=== PATIENT | male | born 1970 | race Caucasian/White ===

== ENCOUNTER 2018-03-15 17:32 | Observation (INO) | payer BC, SELFPAY ==
[2018-03-15] VITALS (11 sets, daily range): BP systolic 118–175; BP diastolic 85–118; PULSE 82–105; RESP 14–22; TEMP 36.7–37.2; O2SAT 93–98; BMI 31.4; BMI 30.9; BMI 31.0
--- NOTE | 2018-03-15 17:49 | RAD_ITS ---
STUDY: X-RAY CHEST REASON FOR EXAM: Male, 48 years old. Shortness of breath this morning TECHNIQUE: Single AP portable view of the chest. COMPARISON: 10/09/2016 FINDINGS: The lungs are clear and expanded. There is no demonstrated pleural abnormality. Normal size heart. Normal mediastinum and tonio. Normal visualized pulmonary arteries. Normal visualized aortic arch and descending thoracic aorta. Normal visualized thoracic spine. Normal visualized ribs, clavicles, and shoulders. There is no demonstrated abnormality of the visualized soft tissue structures of the upper abdomen. RAD/Chest 1 View (Portable) IMPRESSION: Normal x-ray examination of the chest. Electronically Signed: Alvin Rudolph DO at 18:13 EDT Tel , Service support ,
--- NOTE | 2018-03-15 17:49 | EKG12_ITS ---
Test Reason : CP Blood Pressure : / mmHG Vent. Rate : 097 BPM Atrial Rate : 097 BPM P-R Int : 116 ms QRS Dur : 090 ms QT Int : 360 ms P-R-T Axes : 062 026 044 degrees QTc Int : 457 ms Normal sinus rhythm Nonspecific ST abnormality Abnormal ECG Confirmed by JEREMIAS ERAZO ([id number]), material expeditor ELLIE ROWLEY ([id number]) on 03/18/2018 2:39:58 PM Referred By: FELIPE/CORINA Confirmed By:JEREMIAS ERAZO
[2018-03-15] MEDS: Aspirin 81 MG TAB.CHEW 324 MG PO (17:57)
--- NOTE | 2018-03-15 18:05 | NURSING ---
NO OLD EKGS
[2018-03-15 18:51] LABS: Anion Gap 9 (5-15); BUN 12 mg/dL (7-18); BUN/Creat Ratio 9.2 RATIO (10-20); Calcium,Total 8.1 mg/dL (8.5-10.1); Chloride 104 mmol/L (98-107); Creatinine, Serum 1.31 mg/dL (0.70-1.30); EST Glomerular Filtration Rate 62 mL/min (>60); Est Glom Filt Rate - Afr Amer 75 mL/min (>60); Estimated Creatinine Clearance 73.45 ml/min; Glucose 215 mg/dL (74-106); Potassium 3.9 mmol/L (3.5-5.1); Sodium Level 139 mmol/L (136-145)
--- NOTE | 2018-03-15 19:03 | CT_ITS ---
STUDY: CTA CHEST REASON FOR EXAM: Male, 48 years old. Chest pain and shortness of breath. RADIATION DOSAGE (If Supplied By Facility): CTDIvol = ( 14.39 ) mGy, DLP = ( 702.57 ) mGycm TECHNIQUE: The examination was performed with the intravenous administration of 100ML ml of Isovue 370 contrast material. Post-processing of the angiographic images was performed, with multiplanar reformation and 3D reconstruction. Individualized dose optimization techniques were used for this CT. COMPARISON: None. FINDINGS: Normal enhancement of the main pulmonary artery and right and left pulmonary arteries. Normal enhancement of the bilateral peripheral pulmonary arteries. There is no demonstrated pulmonary embolism. Normal thoracic aorta and visualized great vessels. There is no demonstrated aortic dissection. Normal heart and pericardium. Normal mediastinum. Normal hilar regions. Normal visualized trachea and bronchi. The lungs are well expanded. Normal pulmonary parenchyma. Normal pleura. Normal chest wall structures. Normal osseous structures. Normal visualized upper abdomen. CT/CTA Chest W/WO Contrast IMPRESSION: No evidence of pulmonary embolism or aortic dissection. No evidence of acute cardiothoracic process or focal consolidation. Electronically Signed: George Alonso DO at 20:27 EDT , Service support ,
[2018-03-15 19:13] LABS: Absolute Lymphocyte Count 1.89 X10^3/ul (0.83-4.51); Absolute Neutrophil Count 5.3 X10^3/uL (2.0-7.7); Basophil# 0.02 X10^3/uL; Basophil% 0.2 % (0-1); Eosinophil# 0.14 X10^3/uL; Eosinophils% 1.7 % (0-5); Lymphocyte # 1.89 X10^3/ul (4.0); Lymphocyte % 22.7 % (19-41); Mean Corpuscular Volume 90.1 fL (80-94); Mean Platelet Vol. 11.3 fl (6.2-12.0); Monocyte% 10.8 % (0-10); Neutrophil # 5.34 X10^3/uL (2.7-7.7); Neutrophil % 64.2 % (47-70); Platelet Count 191 K/mm3 (150-450); RBC Distribution Width CV 12.6 % (11.6-14.6); RBC Distribution Width SD 40.9 fl (35.1-43.9); Red Blood Count 4.77 M/mm3 (4.6-6.2); White Blood Count 8.3 K/mm3 (4.4-11.0)
[2018-03-15 19:16] LABS: Mean Corpuscular Hgb 32.7 pg (27.0-32.0)
[2018-03-15 19:17] LABS: Hemoglobin 15.6 g/dl (13.0-16.5); Mean Corp Hgb Conc 36.3 g/gl (32-36); POSITIVE COUNT NO; POSITIVE DIFFERENTIAL NO; POSITIVE MORPHOLOGY NO
--- NOTE | 2018-03-15 21:17 | ED.DCSUM_ITS ---
- ER Visit Summary Date of Service: 03/15/18 Chief Complaint: Chest pain History of Present Illness: The patient is a 48 M who presents with chest pain. It began about 6 hours prior to presentation. He states it is dull and on the left side of the chest and radiates to the shoulder and neck and he also had some tingling in his left hand. He felt short of breath. He denies nausea vomiting or diaphoresis. He denies history of exertional symptoms. No family history of coronary disease. Physical Examination: Afebrile initial heart rate 105 initial blood pressure 175 /118 Moist mucous membranes Heart regular rhythm tachycardia Lungs are clear Abdomen soft Extremities nontender without edema 2+ radial pulses Test Results: EKG shows normal sinus rhythm at a rate of 97. Laboratory studies notable for creatinine 1.31. Troponin negative. Chest x-ray normal. CTA of the chest shows no evidence of PE or dissection. Emergency Department Course and Treatment: Patient was given aspirin and sublingual nitroglycerin without change in symptoms. However after period of observation he does report significant improvement of his chest pain. His blood pressure is improved on reevaluation. Given his description of symptoms with radiation to the neck and shoulder and shortness of breath I did feel he should have repeat EKG and serial enzymes. He was discussed with hospitalist and admitted. Treatment Plan: [] Disposition: Admit Impression: Chest pain This note was generated with [employer] dictation software. It may contain incorrect words, spelling, and punctuation that were not noted in review of the chart prior to signing ED Disposition - Plan for ED Patient: Chief Complaint: Chest Pain Referrals: Malcom White MD [Primary Care Provider] -
--- NOTE | 2018-03-15 21:21 | PCM.HP.STD ---
Problem List (1) Chest pain Status: Acute Qualifiers: Chest pain type: unspecified Qualified Code(s): R07.9 - Chest pain, unspecified History of Present Illness Date of Admission: 03/15/18 Chief Complaint: chest pain The patient is a 48 year old male patient with no significant past medical history presents to the ER with chest pain. He works thirds shift at [employer] and states he woke up after sleeping following his shift, he had chest pain that radiated to his left jaw and had tingling in his left arm. There are no acute EKG changes and the troponin is negative. He denies having previously had chest pain. He does use smokeless tobacco. He is able to push on his middle of left chest and make the pain feel worse. CTA chest was negative for PE. He will be admitted for observation and rule out cardiac etiology. Past Medical History Allergies bee venom protein (honey bee) Allergy (Verified 03/15/18 17:33) Rash Home Medications: Ambulatory Orders Medication Instructions Recorded NK [NK] 03/15/18 Surgical History: no surgical history Smoking Status: Current every day smoker - smokeless tobacco - *Family History Maternal History Items: No pertinent history Review of Systems Constitutional: Denies: Chills, Fever, Weight Change HEENT: Denies: Head Aches, Sinus Congestion, Sinus Drainage Cardiovascular: Reports: Chest Pain. Denies: Palpitations Respiratory: Denies: Cough, Shortness of breath at rest, Sputum production Gastrointestinal: Denies: Abdominal Pain, Nausea, Vomiting Genitourinary: Denies: Dysuria Musculoskeletal: Denies: Joint Pain, Joint Tenderness Skin: Denies: Rash, Wounds Neurological: Denies: Numbness, Tingling, Focal weakness Psychiatric: Denies: Anxiety, Depression, Homicidal Ideations, Suicidal Ideations Hematologic/ Lymphatic: Denies: Easy Bruising, Easy Bleeding VTE Information - Inpt Only VTE Present on Admission: No VTE Mechan Device Prophylaxis: None VTE Pharm Prophylaxis ordered?: Yes Patient Problems: Active and Suspected Problems Chest pain (Acute) - Physical Exam General: Alert, Oriented x3, Cooperative HEENT: Atraumatic, Normocephalic Neck: Supple Lungs: Clear to auscultation, Normal air movement, No rhonchi, No wheeze, No rales Cardiovascular: Regular rate, Regular Rhythm, Normal S1, Normal S2, No murmurs Abdomen: Bowel Sounds Present, Soft, Non Tender Extremities: No edema, Capillary Refill Less than 3 Seconds Skin: No rashes Musculoskeletal: No Tenderness to Palpation of Joints or Extremities Neurological: Neuro grossly intact Psych/Mental Status: Normal Affect, Appropriate Vital Signs Temp Pulse Resp BP Pulse Ox 99 F 82 17 128/89 H 98 03/15/18 17:34 03/15/18 20:02 03/15/18 20:02 03/15/18 20:02 03/15/18 20:02 Oxygen Flow Rate (L/min) 2 Oxygen Delivery Method Nasal Cannula Weight: 225 lb 1.471 oz Body Mass Index (BMI) 31.4 Laboratory Tests Past 24 Hrs 03/15/18 03/15/18 18:00 18:00 WBC 8.3 RBC 4.77 Hgb 15.6 Hct 43.0 MCV 90.1 MCH 32.7 H MCHC 36.3 H RDW 12.6 RDW Differential 40.9 Plt Count 191 MPV 11.3 Immature Gran % (Auto) 0.400 Neut % (Auto) 64.2 Lymph % (Auto) 22.7 [place] % (Auto) 10.8 H Eos % (Auto) 1.7 Baso % (Auto) 0.2 Absolute Neuts (auto) 5.3 Absolute Lymphs (auto) 1.89 Total Counted Not Reportable Sodium 139 Potassium 3.9 Chloride 104 Carbon Dioxide 26.0 Anion Gap 9 BUN 12 Creatinine 1.31 H Estim Creat Clear Calc 73.45 Est GFR (MDRD) Af Amer 75 Est GFR (MDRD) Non-Af 62 BUN/Creatinine Ratio 9.2 L Glucose 215 H Calcium 8.1 L Troponin I < 0.02 Assessment/Plan Active and Suspected Problems Chest pain (Acute) Plan - admit to progressive care unit for observation - morphine , oxygen, nitro and aspirin per routine - cycle cardiac markers - nuclear exercise stress test in am - LMWH for DVT prophylaxis Code Visit OBSV E&M: 20563 Initial observation care L2
[2018-03-16 02:27] LABS: International Normalized Ratio 1.1; Prothrombin Time (Protime)PT. 13.8 SECONDS (11.7-14.9)
[2018-03-16 02:30] LABS: Absolute Lymphocyte Count 2.44 X10^3/ul (0.83-4.51); Absolute Neutrophil Count 3.4 X10^3/uL (2.0-7.7); Basophil# 0.01 X10^3/uL; Basophil% 0.1 % (0-1); Eosinophil# 0.22 X10^3/uL; Eosinophils% 3.3 % (0-5); Hematocrit 42.3 % (40-54); Hemoglobin 15.4 g/dl (13.0-16.5); Lymphocyte # 2.44 X10^3/ul (4.0); Lymphocyte % 36.6 % (19-41); Mean Corp Hgb Conc 36.4 g/gl (32-36); Mean Corpuscular Hgb 32.9 pg (27.0-32.0); Mean Corpuscular Volume 90.4 fL (80-94); Mean Platelet Vol. 10.7 fl (6.2-12.0); Neutrophil # 3.39 X10^3/uL (2.7-7.7); Neutrophil % 50.9 % (47-70); POSITIVE COUNT NO; POSITIVE DIFFERENTIAL NO; POSITIVE MORPHOLOGY NO; Platelet Count 167 K/mm3 (150-450); RBC Distribution Width CV 12.8 % (11.6-14.6); RBC Distribution Width SD 41.7 fl (35.1-43.9); Red Blood Count 4.68 M/mm3 (4.6-6.2); White Blood Count 6.7 K/mm3 (4.4-11.0)
[2018-03-16 02:46] LABS: Albumin, Serum 3.4 g/dL (3.2-5.0); BUN 10 mg/dL (7-18); BUN/Creat Ratio 9.7 RATIO (10-20); Creatinine, Serum 1.03 mg/dL (0.70-1.30); EST Glomerular Filtration Rate 82 mL/min (>60); Est Glom Filt Rate - Afr Amer 99 mL/min (>60); Estimated Creatinine Clearance 93.41 ml/min; Glucose 179 mg/dL (74-106)
[2018-03-16 02:47] LABS: ALB/GLOB Ratio 0.9 RATIO (0.9-2.4); AST(SGOT) 25 U/L (15-37); Alanine Aminotransfer ALT/SGPT 39 U/L (16-61); Alkaline Phosphatase 91 U/L (45-117); Anion Gap 7 (5-15); Chloride 107 mmol/L (98-107); Cholesterol 115 mg/dL (200); Globulin 3.6 g/dL (2.2-4.2); High Density Lipoprotein 23 mg/dL; Magnesium 2.3 mg/dL (1.6-2.6); Potassium 3.5 mmol/L (3.5-5.1); Sodium Level 141 mmol/L (136-145); Thyroid Stim Hormone (TSH) 1.27 uIU/mL (0.358-3.74); Triglycerides 369 mg/dL; Very Low Density Lipoprotein 74 mg/dL (5-40)
[2018-03-16 02:59] VITALS: PULSE 72
[2018-03-16 04:37] VITALS: BP 128/85; PULSE 71; RESP 18; TEMP 36.4; O2SAT 95
[2018-03-16] MEDS: Aspirin E.C. 325 MG Tablet PO (05:07)
--- NOTE | 2018-03-16 05:55 | EKG12_ITS ---
Test Reason : AM EKG Blood Pressure : / mmHG Vent. Rate : 068 BPM Atrial Rate : 068 BPM P-R Int : 114 ms QRS Dur : 088 ms QT Int : 414 ms P-R-T Axes : 010 031 043 degrees QTc Int : 440 ms Normal sinus rhythm Normal ECG When compared with ECG of 15-MAR-2018 17:33, MANUAL COMPARISON REQUIRED, DATA IS UNCONFIRMED Confirmed by JEREMIAS ERAZO ([id number]), editor newspaper ELLIE ROWLEY ([id number]) on 03/18/2018 3:15:14 PM Referred By: DR PORTER Confirmed By:JEREMIAS ERAZO
[2018-03-16 09:05] VITALS: BP 150/92; PULSE 89; RESP 16; TEMP 36.6; O2SAT 94
[2018-03-16 09:06] VITALS: PULSE 114
--- NOTE | 2018-03-16 09:42 | STRESSREP ---
Stress Test Report Date: 03/16/2018 Procedure: Exercise tolerance test/imaging study Indications: Chest pain Consent: Per the patient Procedure: The patient exercised on a Yg protocol for 9 minutes completing Stage III achieving a peak heart rate of 162 bpm (94 % predicted maximal heart rate) with a peak blood pressure 196/94 mmHg and a peak MET capacity of 10 METs. The baseline ECG demonstrated normal sinus rhythm. The peak exercise ECG demonstrated no obvious ECG changes. There were no cardiac dysrhythmias pretest, during exercise, or recovery. The functional capacity was considered good. There was vague chest discomfort/tightness in recovery with spontaneous improvement in recovery. The examination was discontinued secondary to dyspnea. Impression: 1. Technically adequate (percent predicted maximal heart rate greater than 85%) exercise tolerance test 2. Peak exercise ECG with no obvious ECG changes 3. There were no cardiac dysrhythmias pretest, during exercise, or recovery. 4. Nuclear images pending Myocardial perfusion imaging study: Technique: The patient was injected with 14.6 mCi of technetium 99m Cardiolite and subsequently rest SPECT Cardiolite nuclear imaging was obtained in the horizontal long, vertical long, and short axis views. The patient exercised on a Yg protocol for 9 minutes completing Stage III achieving a peak heart rate of 162 bpm (94 % predicted maximal heart rate) with a peak blood pressure 196/94 mmHg and a peak MET capacity of 10 METs. The patient was injected with 43.9 mCi of technetium 99m Cardiolite and subsequently stress SPECT Cardiolite nuclear imaging was obtained in the horizontal long, vertical long, and short axis views. A gated Cardiolite study at peak stress was obtained. Interpretation: Rest and stress SPECT Cardiolite nuclear imaging status post realignment, normalization, and attenuation correction, demonstrates the appearance of relative uniform tracer uptake and myocardial perfusion appearing within normal limits. There is end systolic thickening and brightening. The gated Cardiolite study demonstrates myocardial thickening and inward wall motion. The reported LVEF is 57 %. Impression: 1. Rest and stress SPECT Cardiolite nuclear imaging demonstrate relative uniform tracer uptake and myocardial perfusion appearing within normal limits. 2. The gated Cardiolite study reports an LVEF of 57 %. This note was generated with [employer] software. It may contain incorrect words, spelling, and punctuation that were not noted in checking the note before signing.
--- NOTE | 2018-03-16 09:46 | STRESSREP_ITS ---
Stress Test Report Date: 03/16/2018 Procedure: Exercise tolerance test/imaging study Indications: Chest pain Consent: Per the patient Procedure: The patient exercised on a Yg protocol for 9 minutes completing Stage III achieving a peak heart rate of 162 bpm (94 % predicted maximal heart rate) with a peak blood pressure 196/94 mmHg and a peak MET capacity of 10 METs. The baseline ECG demonstrated normal sinus rhythm. The peak exercise ECG demonstrated no obvious ECG changes. There were no cardiac dysrhythmias pretest, during exercise, or recovery. The functional capacity was considered good. There was vague chest discomfort/tightness in recovery with spontaneous improvement in recovery. The examination was discontinued secondary to dyspnea. Impression: 1. Technically adequate (percent predicted maximal heart rate greater than 85% ) exercise tolerance test 2. Peak exercise ECG with no obvious ECG changes 3. There were no cardiac dysrhythmias pretest, during exercise, or recovery. 4. Nuclear images pending Myocardial perfusion imaging study: Technique: The patient was injected with 14.6 mCi of technetium 99m Cardiolite and subsequently rest SPECT Cardiolite nuclear imaging was obtained in the horizontal long, vertical long, and short axis views. The patient exercised on a Yg protocol for 9 minutes completing Stage III achieving a peak heart rate of 162 bpm (94 % predicted maximal heart rate) with a peak blood pressure 196/ 94 mmHg and a peak MET capacity of 10 METs. The patient was injected with 43.9 mCi of technetium 99m Cardiolite and subsequently stress SPECT Cardiolite nuclear imaging was obtained in the horizontal long, vertical long, and short axis views. A gated Cardiolite study at peak stress was obtained. Interpretation: Rest and stress SPECT Cardiolite nuclear imaging status post realignment, normalization, and attenuation correction, demonstrates the appearance of relative uniform tracer uptake and myocardial perfusion appearing within normal limits. There is end systolic thickening and brightening. The gated Cardiolite study demonstrates myocardial thickening and inward wall motion. The reported LVEF is 57 %. Impression: 1. Rest and stress SPECT Cardiolite nuclear imaging demonstrate relative uniform tracer uptake and myocardial perfusion appearing within normal limits. 2. The gated Cardiolite study reports an LVEF of 57 %. This note was generated with [employer] software. It may contain incorrect words, spelling, and punctuation that were not noted in checking the note before signing.
[2018-03-16 11:42] VITALS: PULSE 85
--- NOTE | 2018-03-16 12:46 | PN_ITS ---
Patient Problems: Active and Suspected Problems Chest pain (Acute) Subjective: Chest pain resolved at 4 AM today. Lasted when he woke in the afternoon. Never had anything like this before. Patient said that went to his neck and down his arm. Patient is unsure if he slept a lot on it or not. Vitals/I&O's: Vital Signs Temp Pulse Resp BP Pulse Ox 36.6 C 85 16 150/92 H 94 03/16/18 09:05 03/16/18 11:42 03/16/18 09:05 03/16/18 09:05 03/16/18 09:05 Oxygen Delivery Method Room Air Weight: 100.7 kg Body Mass Index (BMI) 30.9 Intake and Output for Last 24 Hours 03/14/18 03/15/18 03/16/18 23:59 23:59 23:59 Intake Total 860 / 860 Balance 860 / 860 General: Alert, Cooperative, No apparent distress HEENT: Atraumatic, Normocephalic Laboratory Results 03/15/18 23:09: Troponin I < 0.02 03/16/18 01:53: Troponin I < 0.02 03/16/18 01:53: WBC 6.7, RBC 4.68, Hgb 15.4, Hct 42.3, MCV 90.4, MCH 32.9 H, MCHC 36.4 H, RDW 12.8, RDW Differential 41.7, Plt Count 167, MPV 10.7, Immature Gran % (Auto) 0.100, Neut % (Auto) 50.9, Lymph % (Auto) 36.6, [place] % (Auto) 9.0 , Eos % (Auto) 3.3, Baso % (Auto) 0.1, Absolute Neuts (auto) 3.4, Absolute Lymphs (auto) 2.44, Total Counted Not Reportable 03/16/18 01:53: Sodium 141, Potassium 3.5, Chloride 107, Carbon Dioxide 27.0, Anion Gap 7, BUN 10, Creatinine 1.03, Estim Creat Clear Calc 93.41, Est GFR ( MDRD) Af Amer 99, Est GFR (MDRD) Non-Af 82, BUN/Creatinine Ratio 9.7 L, Glucose 179 H, Calcium 8.0 L, Magnesium 2.3, Total Bilirubin 0.60, AST 25, ALT 39, Alkaline Phosphatase 91, Total Protein 7.0, Albumin 3.4, Globulin 3.6, Albumin/ Globulin Ratio 0.9, Triglycerides 369 H, Cholesterol 115, LDL Cholesterol 18, VLDL Cholesterol 74 H, HDL Cholesterol 23 L, TSH 1.27 03/16/18 01:53: PT 13.8, INR 1.1, APTT 33.0 03/16/18 09:05: Troponin I < 0.02 Current Medications Acetaminophen (Tylenol) 650 mg PO Q6H PRN PRN PRN Reason: PAIN Aspirin (Ecotrin) 325 mg PO DAILY@0800 [facility] Last Admin: 03/16/18 05:07 Dose: 325 mg Enoxaparin Sodium (Lovenox) 40 mg SC DAILY@1000 [facility] Last Admin: 03/16/18 09:05 Dose: Not Given Magnesium Hydroxide (Milk Of Magnesia) 30 ml PO DAILY PRN PRN Reason: Constipation Morphine Sulfate () 2 mg IV Q2H PRN PRN PRN Reason: SEVERE PAIN (6-10/10) Nitroglycerin (Nitrostat) 0.4 mg SUBLINGUAL Q5M PRN PRN Reason: CHEST PAIN Sodium Chloride () 5 - 30 ml IV UD PRN PRN Reason: SALINE FLUSH Medical Necessity - Tobacco Use Smoking Status: Current every day smoker Tobacco Use: - Assessment/Plan Active and Suspected Problems Chest pain (Acute) 1. Chest pain * Stress test negative * Unclear if muscular in nature but completely resolved. * No further workup at this time. Discharge home. *
--- NOTE | 2018-03-16 12:46 | PCM.DC ---
- Discharge Diagnoses Current Active Problems: Current Active and Chronic Problems Chest pain (Acute) You will use the following diet at home:: Regular Your food should be the consistency of: Regular Your liquids should be the consistency of: Regular/Thin Discharge Activity: Return to Normal Activity Call your doctor if you observe: Fever of 101 or Higher, Shortness of breath, Chest pain - worsening or recurrent Instructions: ED Chest Pain NonCardiac Allergies/Adverse Reactions: Allergies bee venom protein (honey bee) Allergy (Verified 03/15/18 17:33) Rash Medications to take at Discharge NK [NK] 03/15/18 Primary Care Physician: Malcom White MD [Primary Care Provider] - Within 2 Weeks Proposed Discharge Date: 03/16/18
--- NOTE | 2018-03-16 12:47 | PCM.DC.SUM ---
Discharge Date and Diagnosis - Problem List Patient Problems: Active and Suspected Problems Chest pain (Acute) Date of Admission: 03/15/18 Date of Discharge: 03/16/18 - Primary Discharge Diagnosis Active and Suspected Problems Chest pain (Acute) Hospital Course and Treatment Imaging Results: 03/16/18 05:55 Nuclear Stress Test - Treadmil [NM] AM (NON MEDS) Operations: None Procedures: Stress test Summary of Care Provided: The patient is a 48 year old M is a left-sided chest pain going up the side of his neck and down his arm. Patient underwent a cardiac workup including stress test that was all negative. Unclear as to what the etiology of the patient's chest pain but does not appear to be cardiac at this time. Patient will be discharged home. [] Discharge Diet: No Restrictions Discharge Activity: Return to Normal Activity Call your doctor if you observe: Fever of 101 or Higher, Shortness of breath, Chest pain - worsening or recurrent Home Medications: Medications to take at Discharge NK [NK] 03/15/18 Primary Care Physician: Malcom White MD [Primary Care Provider] - Within 2 Weeks Patient Instructions: ED Chest Pain NonCardiac Disposition: Home Minutes spent on discharge:: 24 Patient Condition:: Good Medical Necessity - Tobacco Use Smoking Status: Current every day smoker Tobacco Use: - Meaningful Use Info Meaningful Use Diagnoses (Choose all that apply): None applicable Code Visit OBSV E&M: 00372 Observation care discharge
--- NOTE | 2018-03-16 12:49 | PCM.WORK.EX ---
Work/School Excuse Work/School Excuse for:: Patient Please excuse this person from:: Work From: 03/15/18 through: 03/16/18 - may return to normal duties
== END 2018-03-16 12:46 | disposition home or self-care (01) ==
LOC: ED 20:52 → PCU 21:38
PROVIDERS: Admitting Provider Family Medicine; Emergency Provider Emergency Medicine; Family Provider Family Medicine; PCP Family Medicine
DX: R07.89 Other chest pain (principal); F17.290 Nicotine dependence, other tobacco product, uncomplicated; R20.2 Paresthesia of skin; R06.02 Shortness of breath
CPT/HCPCS: 36415; 71045; 71275; 78452; 80048; 80053; 80061; 83735; 84443; 84484; 85025; 85610; 85730; 93005; 93017; 99218; 99285; 99406; A9500; Q9967; A4216; G0378

== ENCOUNTER → 2019-05-12 08:22 | Outpatient (CLI) | payer BC, SELFPAY ==
[2019-05-12 12:06] LABS: Absolute Lymphocyte Count 1.83 X10^3/ul (0.83-4.51); Absolute Neutrophil Count 2.8 X10^3/uL (2.0-7.7); Basophil# 0.01 X10^3/uL; Basophil% 0.2 % (0-1); Eosinophil# 0.12 X10^3/uL; Eosinophils% 2.3 % (0-5); Hematocrit 43.8 % (40-54); Hemoglobin 15.9 g/dl (13.0-16.5); Lymphocyte # 1.83 X10^3/ul (4.0); Lymphocyte % 34.5 % (19-41); Mean Corp Hgb Conc 36.3 g/gl (32-36); Mean Corpuscular Hgb 32.9 pg (27.0-32.0); Mean Corpuscular Volume 90.5 fL (80-94); Mean Platelet Vol. 10.6 fl (6.2-12.0); Monocyte# 0.54 X10^3/uL; Monocyte% 10.2 % (0-10); Neutrophil % 52.6 % (47-70); Platelet Count 178 K/mm3 (150-450); RBC Distribution Width CV 13.2 % (11.6-14.6); RBC Distribution Width SD 42.9 fl (35.1-43.9); Red Blood Count 4.84 M/mm3 (4.6-6.2); White Blood Count 5.3 K/mm3 (4.4-11.0)
[2019-05-12 12:19] LABS: POSITIVE COUNT NO; POSITIVE DIFFERENTIAL NO; POSITIVE MORPHOLOGY NO
[2019-05-12 12:38] LABS: ALB/GLOB Ratio 1.1 RATIO (0.9-2.4); AST(SGOT) 31 U/L (15-37); Alanine Aminotransfer ALT/SGPT 48 U/L (16-61); Albumin, Serum 3.8 g/dL (3.2-5.0); Alkaline Phosphatase 104 U/L (45-117); Anion Gap 5 (5-15); BUN 16 mg/dL (7-18); BUN/Creat Ratio 15.2 RATIO (10-20); Calcium,Total 8.7 mg/dL (8.5-10.1); Chloride 108 mmol/L (98-107); Creatinine, Serum 1.05 mg/dL (0.70-1.30); EST Glomerular Filtration Rate 80 mL/min (>60); Est Glom Filt Rate - Afr Amer 96 mL/min (>60); Globulin 3.4 g/dL (2.2-4.2); Glucose 149 mg/dL (74-106); Protein, Total 7.2 g/dL (6.4-8.2); Sodium Level 137 mmol/L (136-145)
[2019-05-12 13:44] LABS: Hemoglobin A1c 5.5 % (4.2-6.3)
== END ==
PROVIDERS: Family Provider Family Medicine; PCP Family Medicine; Visit Provider Family Medicine
DX: Z01.818 Encounter for other preprocedural examination (principal)
CPT/HCPCS: 36415; 80053; 83036; 85025

== ENCOUNTER 2019-05-20 10:29 | Day surgery (SDC) | payer BC, SELFPAY ==
[2018-03-15 22:24] VITALS: BMI 30.9
[2019-05-20] VITALS (8 sets, daily range): BP systolic 125–137; BP diastolic 81–98; PULSE 63–108; RESP 14–18; TEMP 36.7–37.4; O2SAT 92–97; BMI 30.7
--- NOTE | 2019-05-20 12:00 | BUN_PTH ---
PATIENT: CINTHYA YANEZ [place] [facility] [place][id number] AGE/SX: 49/M ROOM: RE05/20/[address]: Dr. Cinthya Mcmahon DPM : 1970 BED: DIS: 05/20/2019 SPEC #: [id number] RECD: 05/20/19 16:10 STATUS: PAOLODavid RENicolás #: [id number] VIRAL: 05/20/19 12:[address]: Cinthya Mcmahon DEPT: SURGICAL PATHOLOGY RECD BY: Mike Engel ENTERED: 05/23/19 09:56 SP TYPE: FEDERICO MIRANDA DR: Dr. Malcom White MD Tissues: Bony tissue, NOS Procedures: Decalcification bone/plaque Surgery Specimen Level III HEADER OPERATION: First metatarsal cuneiform fusion arthrodesis Lapidus bunionectomy PRE-OP DIAGNOSIS: First metatarsal cuneiform fusion arthrodesis Lapidus TISSUE SUBMITTED: Right bunion MICROSCOPIC DIAGNOSIS Right bunion: Fragment of bone with reactive changes consistent with bunion. FA:river 05/26/19 MICROSCOPIC DESCRIPTION Slides are reviewed. GROSS DESCRIPTION Received in fixative is one container labeled with the patient's name and designated right federico. The specimen consists of four logan-brown fragments of bone measuring in aggregate 3.5 x 2.5 x 0.5 cm. Foam Dispenser sections are submitted in one cassette after decalcification. / CE:river 05/23/19 TC:5 [facility]: [id number]
--- NOTE | 2019-05-20 12:00 | RAD_ITS ---
STUDY: X-RAY - RIGHT FOOT CLINICAL: Male, 49 years old. Intraoperative right foot TECHNIQUE: 2 fluoroscopic spot view(s) of the foot. COMPARISON: None. FINDINGS: Plate and screws transfix first tarsal metatarsal joint. RAD/Foot min 3 Views IMPRESSION: Plate and screws transfix the first tarsal metatarsal joint. K wires in place as well. Electronically Signed: Kb Santiago MD at 20:13 EDT , Service support ,
[2019-05-20] MEDS: Cefazolin 2 GM in 0.9% Normal Saline 100 ML IV (13:52)
[2019-05-20] MEDS: Bupivacaine Mpf 0.5% 30 ML VIAL (15:56)
--- NOTE | 2019-05-20 16:08 | DCINST_ITS ---
Discharge Diet: Light diet - advance as tolerated Discharge Activity: May Not Drive Weight Bearing Status: No weight bearing - No weightbearing right foot Keep extremity elevated above heart level: Right Leg - Keep right foot elevated for at least 50 minutes of every hour using pillows Call your doctor if your incision/area has: Continuous Slow Oozing, Sudden Increased Bleeding, Foul Smelling Discharge Call your doctor if you observe: Fever of 101 or Higher, Coldness, Increased Pain, Shortness of breath, Increased palpitations (irregular heartbeat), Calf discomfort, Uncontrolled pain Cleanse incision/area with: Do not get Incision Wet, Keep Dressing Clean & Dry Allergies/Adverse Reactions: Allergies bee venom protein (honey bee) Allergy (Verified 05/13/19 13:32) Rash Medications to take at Discharge Oxycodone HCl/Acetaminophen [Percocet 5/325] 1 - 2 tab PO Q6H PRN PRN 4 Days #32 tab 05/20/19 The following prescriptions were given: Oxycodone HCl/Acetaminophen [Percocet 5/325] 1 - 2 tab PO Q6H PRN PRN 4 Days #32 tab PRN Reason: Pain Prescription Printed Primary Care Physician: Malcom White MD [Primary Care Provider] - Test Results: Test results from this visit will be discussed in further detail at your follow- up appointment, if applicable. Please Follow Up With: Ismael Mcmahon DPM When: within 1 week, sooner if needed
--- NOTE | 2019-05-20 16:10 | OP.PCM_ITS ---
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 Rosalba Gutierrez Type of Anesthesia:: General, Local Estimated Blood Loss (mL): 15mL Description of Procedure: Indications: This is a 49 year old male with history of significant and painful hallux valgus bunion deformity. Given the continued symptoms despite previous nonsurgical, he elected to under go surgical intervention - 1st metatarsal cuneiform lapidus arthrodesis bunionectomy. This was discussed with him in great detail, reviewed the procedure, as well as the rationale of the procedures with him in great detail. We discussed and reviewed the possible benefits vs risks/potential complications. The estimated healing/recovery time and protocol were reviewed with him in detail. Reviewed the goals and the expectations. He expressed understanding and agreement and elected to proceed forward with surgical intervention as noted above. The consent forms were reviewed with him and he freely signed them. All of his questions were answered. No guarantees were given or implied. No warrantees were given. He was cleared from medical standpoint to proceed with surgery. Operative Procedure: The patient was brought back into the operating room and was placed on the operating table in the supine position. Patient was carefully secured to the operating room table with a safety belt around his waist. A time out was performed and the patient was properly identified and the surgical plan was confirmed. The patient received IV antibiotic prophylaxis - 2g of Ancef. The patient received anesthesia per the anesthesiologist. A well padded pneumatic tourniquet was applied around his right thigh. 10 mL of 0.5% Bupivacaine plain was given as a lock block around the surgical site for further pain control after the overlying skin was cleansed with 70% isopropyl alcohol. The right foot was scrubbed, prepped, and draped in the usual aseptic fashion. Attention was directed to the right foot, there was noted to be significant hallux valgus bunion deformity with hypermobile 1st ray. There was limited range of motion to the 1st metatarsal phalangeal joint and the 1st toe was underneath the 2nd toe.The right foot was exsanguinated using an Esmarch bandage and the right thigh pneumatic tourniquet was inflated to 350mmHg. A linear longitudinal skin incision was medially along the medial 1st metatarsal cuneiform joint and also medial 1st metatarsal phalangeal joint. This was done using a 15 blade. Careful dissection was completed down to the capsule of the 1st metatarsal cuneiform joint, and it was incised using a 15 blade and partially reflected exposing the joint surfaces. All cartilage from the 1st metatarsal cuneiform joint surfaces (posterior aspect of the base of the 1st metatarsal and the anter ior aspect of the medial cuneiform) was debrided away and was removed down to bleeding bone. This was done with a curette as well as powered rasp and powered sagittal saw. The site was flushed out with copious amounts of normal saline solution. The surfaces were fenestrated using a powered drill to aid fusion. The site was fixated use rigid open reduction internal fixation, using 1 Arthrex plantar plate, using a total of 4 locking screws, and 1 nonlocking compression screw across the fusion site. Also 1 Arthrex nitinol compression staple was placed across the fusion site for further fixation. The surgical site was flushed with copious amounts of normal saline solution. There was very good compression and bone to bone contract with the prepped fusion site, in good alignment. The arthrodesis site was rigid and very stable. This was checked and confirmed with intraoperative fluoroscopy. There was still noted to be a prominent medial eminence to the 1st metatarsal head with limited 1st metatarsal joint joint range of motion. Careful dissection was completed down to the 1st metatarsal phalangeal joint capsule, it was carefully incised on the medial aspect and partial reflected to visualize joint. The large medial eminence was resected and sent to pathology. There was noted to be chronic degenerative changes and thinning to the 1st metatarsal phalangeal joint surfaces from chronic deformity. It was noted the lateral 1st metatasral phalangeal joint capsule as well as the adductor hallucis tendon was extremely contracted and tight preventing complete reduction and proper re-alignment. The lateral capsule as well as the cojoined adductor hallucis tendon were carefully released using a 15 blade. There was significant attenuation of the medial 1st metatarsal phalangeal joint capsule and a medial capsulorraphy was completed using 2-0 Vicryl with the hallux and 1st metatarsal phalangeal joint in proper position. This was confirmed with intraoperative fluoroscopy. Tissues were healthy and viable at this time. The subcutaneous tissue layers were reapproximated using 3-0 Vicryl and the skin was reapproximated using 4-0 Monocryl. Cavailon was painted to the edges of the sutured skin incision and steristrips were applied across the sutured skin incision. 20 mL of 0.5% Bupivacaine plain was given as a lock block around the surgical site for further pain control. The pneumatic tourniquet was (total tourniquet time was 101 minutes), there was immediate return of warmth and perfusion to the foot and to all toes on the foot with normal temperature gradient and CFT < 2 seconds to all toes once the tourniquet was deflated. A dressing was applied which consisted of betadine soaked adaptic, 4x4 gauze, kerlix, and an nimco bandage. Hemostasis was achieved. Of note, all vital structures including all vital neurovascular and tendon structures were properly identified, protected, and retracted as necessary throughout the above operative procedures.The anterior tibial tendon was left intact. The patient tolerated the above operative procedures well at the anesthesia well with no complication. The patient was transported from the operating room to the recovery room with vital signs stable and in good condition. Post operative orders were placed. Post operative instructions were reviewed with patient's family who was with him. No weightbearing right foot foot, keep right foot elevated for at least 50 minutes of every hour, keep dressing clean, dry and intact. Percocet 5/325mg PO q 6 hours prn pain, and Cefadroxil 500mg PO q 12 hours to help prevent infection were prescribed. Post operative xrays were obtained in the recovery room (DP, Oblique, and lateral foot) - there was again noted to be 1st metatarsal cuneiform arthrodesis bunionectomy with joint surfaces in good alignment and good bone to bone contract with intact hardware; no acute problems or complications seen. Patient to follow up with me in office within 1 week, sooner if needed. Grafts/Implants Used: Arthrex plantar plate, 1 Arthrex nitinol staple - Complications None
--- NOTE | 2019-05-20 16:24 | RAD_ITS ---
STUDY: X-RAY - RIGHT FOOT CLINICAL: Male, 49 years old. Postop right foot TECHNIQUE: 4 view(s) of the foot. COMPARISON: 1:33 PM today FINDINGS: Normal talus, calcaneus, and tarsal bones. Normal visualized subtalar, talonavicular, calcaneocuboid, tarsal and tarsometatarsal articulations. Side plate and screws transfix the first tarsal metatarsal joint. There is an osteotomy of the head of the first metatarsal. Normal metatarsophalangeal joint of the great toe. Normal tibial and fibular sesamoid bones. Normal interphalangeal joint of the great toe. Normal phalanges of the great toe. Normal second through fifth metatarsophalangeal joints. Normal interphalangeal joints and phalanges of the lesser toes. The soft tissue structures are unremarkable. RAD/Foot min 3 Views IMPRESSION: Postoperative changes as above. Electronically Signed: Kb Santiago MD at 22:57 EDT , Service support ,
[2019-05-20] MEDS: oxyCODONE 5 MG Tablet PO (16:57)
[2019-05-20] MEDS: Acetaminophen 325 MG Tablet PO (16:57)
== END 2019-05-20 17:49 | disposition home or self-care (01) ==
LOC: SDC 10:30 → AC 10:32
PROVIDERS: Family Provider Family Medicine; PCP Family Medicine; Referring Provider Podiatrist; Visit Provider Podiatrist
PROC: (CPT 28292; principal; 2019-05-20 11:45)
DX: M20.11 Hallux valgus (acquired), right foot (principal); E78.5 Hyperlipidemia, unspecified; F17.200 Nicotine dependence, unspecified, uncomplicated
CPT/HCPCS: 28297; 73630; 76000; 88304; 88311; C1713; J7120; J2405

== ENCOUNTER → 2019-06-17 09:45 | Outpatient (CLI) | payer BC, SELFPAY ==
[2019-05-20 10:57] VITALS: BMI 30.7
--- NOTE | 2019-06-17 09:48 | VDLE_ITS ---
Reason For Study: Calf pain RIGHT GSV is normal. CFV is compressible, spontaneous, phasic, competent and demonstrates normal augmentation. FV is compressible, spontaneous, phasic, competent and demonstrates normal augmentation. POP V is compressible, spontaneous, phasic, competent and demonstrates normal augmentation. T/P Trunk is compressible. PTV is compressible. RT PerV is compressible. Procedure Exam performed in department. A preliminary report was called and/or faxed to [facility]. Interpretation Summary Deep veins of the right lower extremity are patent and compressible segmentally. There is no evidence of right lower extremity deep vein thrombosis. Valvular competence appears intact within the proximal deep venous system on the right . The right greater saphenous vein appears patent and compressible segmentally. Ordering Physician: Ismael Mcmahon Referring Physician: Malcom White Performed By: Gina Josue RVT
== END ==
PROVIDERS: Family Provider Family Medicine; PCP Family Medicine; Referring Provider Podiatrist; Visit Provider Podiatrist
DX: M79.661 Pain in right lower leg (principal)
CPT/HCPCS: 93971

== ENCOUNTER → 2020-04-10 | Outpatient (CLI) | payer BC, SELFPAY ==
[2019-05-20 10:57] VITALS: BMI 30.7
== END | disposition home or self-care (01) ==
LOC: LABSPEC 11:11
PROVIDERS: PCP Family Medicine; Referring Provider Family Medicine; Visit Provider Family Medicine
DX: Z03.818 Encounter for observation for suspected exposure to other biological agents ruled out (principal)
CPT/HCPCS: 87635; G2023; U0004

== ENCOUNTER → 2020-09-19 | Outpatient (CLI) | payer BC, SELFPAY ==
[2019-05-20 10:57] VITALS: BMI 30.7
[2020-09-19 18:45] LABS: Absolute Lymphocyte Count 2.12 X10^3/uL (0.83-4.51); Absolute Neutrophil Count 3.4 X10^3/uL (2.0-7.7); Basophil# 0.04 X10^3/uL; Basophil% 0.6 % (0-1); Eosinophil# 0.16 X10^3/uL; Eosinophils% 2.5 % (0-5); Hematocrit 44.3 % (40-54); Hemoglobin 15.6 g/dL (13.0-16.5); Lymphocyte # 2.12 X10^3/ul (4.0); Lymphocyte % 33.2 % (19-41); Mean Corp Hgb Conc 35.2 g/dL (32-36); Mean Corpuscular Hgb 31.9 pg (27.0-32.0); Mean Corpuscular Volume 90.6 fL (80-94); Mean Platelet Vol. 11.1 fl (6.2-12.0); Monocyte% 9.4 % (0-10); NRBC Flagged by Analyzer 0 % (0-5); Neutrophil # 3.42 X10^3/uL (2.7-7.7); Neutrophil % 53.7 % (47-70); Platelet Count 199 K/mm3 (150-450); RBC Distribution Width CV 12.2 % (11.6-14.6); RBC Distribution Width SD 40.4 fl (35.1-43.9); Red Blood Count 4.89 M/mm3 (4.6-6.2); White Blood Count 6.4 K/mm3 (4.4-11.0)
[2020-09-19 18:50] LABS: Vitamin B12 375 pg/mL (211-911); Vitamin D,25 Hydroxy 11.1 ng/mL
[2020-09-19 18:57] LABS: Hemoglobin A1c 7.6 % (3.8-5.6)
[2020-09-19 19:23] LABS: ALB/GLOB Ratio 1.1 RATIO (0.9-2.4); AST(SGOT) 35 U/L (15-37); Alanine Aminotransfer ALT/SGPT 53 U/L (16-61); Albumin, Serum 3.8 g/dL (3.2-5.0); Alkaline Phosphatase 148 U/L (45-117); Anion Gap 9 (5-15); BUN 15 mg/dL (7-18); BUN/Creat Ratio 14.3 RATIO (10-20); CPK Total, Creatine Kinase 190 U/L (39-308); Calcium,Total 8.2 mg/dL (8.5-10.1); Chloride 103 mmol/L (98-107); Cholesterol 182 mg/dL (200); Creatinine, Serum 1.05 mg/dL (0.70-1.30); EST Glomerular Filtration Rate 79 mL/min (>60); Est Glom Filt Rate - Afr Amer 96 mL/min (>60); Globulin 3.5 g/dL (2.2-4.2); Glucose 237 mg/dL (74-106); High Density Lipoprotein 24 mg/dL; Magnesium 2.3 mg/dL (1.6-2.6); PSA,Total - Annual Screen 0.51 ng/mL (0.00-4.00); Potassium 3.6 mmol/L (3.5-5.1); Protein, Total 7.3 g/dL (6.4-8.2); Sodium Level 136 mmol/L (136-145); Thyroid Stim Hormone (TSH) 0.97 uIU/mL (0.358-3.74); Triglycerides 1046 mg/dL
[2020-09-21 16:16] LABS: ANTINUCLEAR ANTIBODIES DIRECT Negative (Negative)
[2020-09-22 03:06] LABS: HCV Quant. RNA PCR HCV Not Detected IU/mL (.)
== END | disposition home or self-care (01) ==
LOC: MTLAB 15:29
PROVIDERS: PCP Family Medicine; Referring Provider Family Medicine; Visit Provider Family Medicine
DX: Z00.00 Encounter for general adult medical examination without abnormal findings (principal); R53.83 Other fatigue; R25.2 Cramp and spasm; Z12.5 Encounter for screening for malignant neoplasm of prostate; Z86.19 Personal history of other infectious and parasitic diseases
CPT/HCPCS: 36415; 80053; 80061; 82306; 82550; 82607; 83036; 83735; 84153; 84443; 85025; 86038; 86225; 86235; 87522; G0103

== ENCOUNTER → 2020-11-20 08:55 | Outpatient (CLI) | payer BC, SELFPAY ==
[2019-05-20 10:57] VITALS: BMI 30.7
[2020-11-20 12:28] LABS: Anion Gap 5 (5-15); BUN 12 mg/dL (7-18); BUN/Creat Ratio 10.8 RATIO (10-20); Calcium,Total 8.8 mg/dL (8.5-10.1); Chloride 106 mmol/L (98-107); Cholesterol 134 mg/dL (200); Creatinine, Serum 1.11 mg/dL (0.70-1.30); EST Glomerular Filtration Rate 74 mL/min (>60); Est Glom Filt Rate - Afr Amer 90 mL/min (>60); Glucose 124 mg/dL (74-106); High Density Lipoprotein 30 mg/dL; Potassium 3.8 mmol/L (3.5-5.1); Sodium Level 138 mmol/L (136-145); Triglycerides 267 mg/dL; Very Low Density Lipoprotein 53 mg/dL (5-40)
[2020-11-20 12:34] LABS: Vitamin D,25 Hydroxy 43.2 ng/mL
== END ==
PROVIDERS: PCP Family Medicine; Visit Provider Family Medicine
DX: E11.9 Type 2 diabetes mellitus without complications (principal); E78.5 Hyperlipidemia, unspecified; E55.9 Vitamin D deficiency, unspecified; I10 Essential (primary) hypertension
CPT/HCPCS: 36415; 80048; 80061; 82306

== ENCOUNTER → 2021-01-25 16:37 | Outpatient (CLI) | payer BC, SELFPAY ==
[2019-05-20 10:57] VITALS: BMI 30.7
[2021-01-25 17:28] LABS: Absolute Lymphocyte Count 1.87 X10^3/uL (0.83-4.51); Absolute Neutrophil Count 3.6 X10^3/uL (2.0-7.7); Basophil# 0.04 X10^3/uL; Basophil% 0.6 % (0-1); Eosinophil# 0.15 X10^3/uL; Eosinophils% 2.4 % (0-5); Hematocrit 44.8 % (40-54); Lymphocyte # 1.87 X10^3/ul (4.0); Lymphocyte % 29.6 % (19-41); Mean Corp Hgb Conc 35.7 g/dL (32-36); Mean Corpuscular Hgb 31.9 pg (27.0-32.0); Mean Corpuscular Volume 89.4 fL (80-94); Monocyte% 9.5 % (0-10); NRBC Flagged by Analyzer 0 % (0-5); Neutrophil # 3.61 X10^3/uL (2.7-7.7); Neutrophil % 57.3 % (47-70); Platelet Count 209 K/mm3 (150-450); RBC Distribution Width CV 12.8 % (11.6-14.6); RBC Distribution Width SD 42.1 fl (35.1-43.9); Red Blood Count 5.01 M/mm3 (4.6-6.2); White Blood Count 6.3 K/mm3 (4.4-11.0)
[2021-01-25 18:19] LABS: AST(SGOT) 32 U/L (15-37); Alanine Aminotransfer ALT/SGPT 47 U/L (16-61); Albumin, Serum 3.6 g/dL (3.2-5.0); Alkaline Phosphatase 104 U/L (45-117); Anion Gap 9 (5-15); BUN 17 mg/dL (7-18); BUN/Creat Ratio 13.6 RATIO (10-20); Calcium,Total 8.6 mg/dL (8.5-10.1); Chloride 102 mmol/L (98-107); Creatinine, Serum 1.25 mg/dL (0.70-1.30); EST Glomerular Filtration Rate 65 mL/min (>60); Est Glom Filt Rate - Afr Amer 78 mL/min (>60); Globulin 3.5 g/dL (2.2-4.2); Glucose 270 mg/dL (74-106); Potassium 3.6 mmol/L (3.5-5.1); Protein, Total 7.1 g/dL (6.4-8.2); Sodium Level 136 mmol/L (136-145)
== END ==
PROVIDERS: Podiatrist; PCP Family Medicine; Visit Provider Family Medicine
DX: Z01.818 Encounter for other preprocedural examination (principal); E11.9 Type 2 diabetes mellitus without complications
CPT/HCPCS: 36415; 80053; 85025

== ENCOUNTER 2021-02-01 05:42 | Day surgery (SDC) | payer BC, SELFPAY ==
[2019-05-20 10:57] VITALS: BMI 30.7
[2021-02-01] VITALS (7 sets, daily range): BP systolic 95–127; BP diastolic 53–90; PULSE 78–92; RESP 16–18; TEMP 36.4–37.3; O2SAT 92–98; BMI 30.1
[2021-02-01] MEDS: Lactated Ringers 1,000 ML 100 ML IV ×2 (06:15→08:31)
[2021-02-01 06:40] LABS: Bedside Glucose 191 mg/dL (70-110)
--- NOTE | 2021-02-01 07:30 | RAD_ITS ---
STUDY: X-RAY - RIGHT FOOT CLINICAL: Cheilectomy arthroplasty of the first metatarsophalangeal joint. TECHNIQUE: 6 intraoperative images of the foot. COMPARISON: Radiographs 05/20/2019. FINDINGS: Status post resection of the dorsal first metacarpal head without evidence of complication. 10 seconds of fluoroscopy time was used. Electronically Signed: James Dumont MD at 13:26 EST Tel , Service support , RAD/Foot 2 Views
--- NOTE | 2021-02-01 07:30 | BON_PTH ---
PATIENT: CINTHYA YANEZ [place] [facility] [place][id number] AGE/SX: 50/M ROOM: RE02/01/[address]: Dr. Cinthya Mcmahon DPM : 1970 BED: DIS: 02/01/2021 SPEC #: [id number] RECD: 02/01/21 10:12 STATUS: PITER RENicolás #: [id number] VIRAL: 02/01/21 07:[address]: Cinthya Mcmahon DEPT: SURGICAL PATHOLOGY RECD BY: Monica Urbano ENTERED: 02/01/21 10:56 SP TYPE: Bone OTHR DR: Dr. Malcom White MD Tissues: Toe, NOS Procedures: Decalcification bone/plaque Surgery Specimen Level IV HEADER OPERATION: Right foot first metatarsophalangeal joint cheilectomy PRE-OP DIAGNOSIS: Displaced fracture of proximal phalanx of right great toe TISSUE SUBMITTED: First metatarsophalangeal joint right foot MICROSCOPIC DIAGNOSIS First metatarsophalangeal joint, right foot, excision: Reparative and reactive change consistent with organizing fracture callus. AM:river 02/06/2021 MICROSCOPIC DESCRIPTION Slides are reviewed. GROSS DESCRIPTION Received in fixative is one container labeled with the patient's name and designated first metatarso-phalangeal joint right foot. The specimen consists of two pieces of bone measuring 2 x 2 x 0.3 cm and 1.5 x 1 x 0.4 cm. The entire specimen is submitted in two cassettes after decalcification. / STEVE:river 02/01/21 TC:5 CPT: 98866, 23657
[2021-02-01] MEDS: Cefazolin 2 GM in 0.9% Normal Saline 100 ML IV (07:31)
[2021-02-01] MEDS: dexAMETHasone 4 MG/ML Vial (08:15)
[2021-02-01] MEDS: Bupivacaine Mpf 0.5% 30 ML VIAL (08:21)
--- NOTE | 2021-02-01 08:34 | DCINST_ITS ---
Discharge Diet: Light diet - advance as tolerated Discharge Activity: May Not Drive, Use Crutches Weight Bearing Status: No weight bearing - No weightbearing right foot Keep extremity elevated above heart level: Right Leg - Keep right foot elevated with pillows for at least 50 minutes of every hour Call your doctor if your incision/area has: Continuous Slow Oozing, Sudden Increased Bleeding, Foul Smelling Discharge Call your doctor if you observe: Fever of 101 or Higher, Shortness of breath, Chest pain, Increased palpitations (irregular heartbeat), Calf discomfort, Uncontrolled pain Cleanse incision/area with: Do not get Incision Wet, Keep Dressing Clean & Dry Allergies/Adverse Reactions: Allergies bee venom protein (honey bee) Allergy (Verified 02/01/21 06:15) Rash Medications to take at Discharge Ergocalciferol [Vitamin D] 50,000 unit PO Q7D 01/28/21 Fenofibrate [Tricor] 145 mg PO DAILY 01/28/21 Glipizide [Glipizide ER] 5 mg PO DAILY 01/28/21 Ibuprofen 200 mg PO PRN PRN 01/28/21 Lisinopril 5 mg PO DAILY 01/28/21 Hydrocodone Bitart/Apap 5-325 [Farson 5MG-325MG] 1 - 2 tablet PO Q6H PRN PRN 4 Days #24 tablet 02/01/21 The following prescriptions were given: Hydrocodone Bitart/Apap 5-325 [Farson 5MG-325MG] 1 - 2 tablet PO Q6H PRN PRN 4 Days #24 tablet PRN Reason: Pain Transmission Status: Received by [id number] Primary Care Physician: Malcom White MD [Primary Care Provider] - Test Results: Test results from this visit will be discussed in further detail at your follow- up appointment, if applicable. Please Follow Up With: Ismael Mcmahon DPM - Call Dr. Mcmahon if needed - [phone] (office) or [phone] (cell); call [facility] to page over weekend or after hours as needed. When: within 1 week at office, sooner if needed
--- NOTE | 2021-02-01 08:36 | OP.PCM_ITS ---
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 Patient has pain and limited range of agatha on to the right 1st MTPJ. We have treated with conservative/nonsurgical management, but symptoms persists and he continues to have pain and symptoms. He elected to undergo surgery on the right 1st MTPJ and corticosteroid injection to the right lateral ankle. We discussed the procedure options. We reviewed the rationale of this as well as the possible benefits, risks, potential complications goals and expectations of each. This was discussed with him in great detail. Typical post op recovery was reviewed with patient, and he expressed understanding and agreement. The consent forms were reviewed with him in detail, and he freely signed them. No guarantees were given nor implied. All of his questions were answered. Patient was medically cleared. Operative Procedure: The patient was brought back into the operating room and was placed on the operating room table in the supine position. The patient was carefully secured to the operating room table with a safety belt around the waist. A time out was performed and the patient was properly identified and the surgical plan was confirmed. The patient received 2 grams of IV Ancef for antibiotic prophylaxis. A well padded pneumatic tourniquet was applied around the right ankle. The patient did receive general anesthesia per the anesthesiologist. The skin was cleansed with 70% Isopropyl alcohol, and 20mL of 0.5% Bupivacaine plain was given as a 1st ray block on the right foot. The right foot and ankle were scrubbed, prepped, draped in the usual aseptic fashion. A timeout was performed and the patient was properly identified and the surgical plan was confirmed. The right foot was elevated and exsanguinated using an Esmarch; and the ankle pneumatic tourniquet was inflated to 250mmHg. Right 1st metatarsal phalangeal joint cheilectomy/arthroplasty: Attention was directed to the 1st MTPJ. There as noted to be significant limited range of motion present (less than 20 degrees of dorsiflexion), with dorsal jamming consistent with significant hallux rigidus and osteoarthritis. A linear longitudinal skin incision was made overlying the dorsal medial 1st MTPJ, medial to the Extensor Hallucis Longus tendon using a 15 scalpel blade. Careful dissection was completed down through the subcutaneous tissue layer, down to the 1st MTPJ capsule, which was incised with a 15 scalpel blade. The 1st MTPJ capsule was very tight with adhesions, it was partially reflected exposing the dorsal, lateral, and medial aspect of the 1st metatarsal head and base of the hallux proximal phalanx. There were bone fragments around the dorsal 1st metatar alicja head as well as the dorsal aspect of the base of the hallux proximal phalanx. There was a dorsal eminence present to the 1st metatarsal head. The cartilage on the dorsal one third to one half of the 1st metatarsal head was severely worn away and unhealthy. There were significant adhesions of the sesamoid apparatus. The adhesions of the 1st MTPJ capsule and sesamoid apparatus were freed up using a McGlamry elevator. Using a powered sagittal saw the dorsal eminence, as well as the dorsal one third to one half 1st metatarsal head was resected, and the bone fragments were excised. The dorsal aspect of the base of the hallux proximal phalanx was resected with a powered sagittal saw. This was sent to pathology for further evaluation. Proper resection was confirmed visually as well as using intra operative fluoroscopy, without the use of a projection technician. The rest of the cartilage to the joint was noted to be healthy and viable. At this time the 1st MTPJ was put through range of motion and it was gliding normally and smoothly, with no impingement or crepitus present, there was 90 degrees of 1st metatarsal phalangeal joint dorsiflexion, confirmed with fluoroscopy. There was no popping or catching present with range of motion. The site was flushed out with copious amounts of normal saline solution. The joint capsule was reapproximated in neutral position using 3-0 Vicryl, the subcutaneo us tissue layer was reapproximated using 3-0 Vicryl, the skin was reapproximated using 4-0 Monocryl. Cavilon was painted to the sutured skin edges and steristrips were applied across the sutured skin incision. All vital structure, including all vital neurovascular structures were properly identified and protected as necessary throughout the procedure. Right ankle joint corticosteroid injection: A mixture of 4mL 0.5% Bupivicaine plain, and 4mg/ml (1mL) of Dexamethasone Phosphate was injected to and immediately around the joint using a 25 gauge needle. The pneumatic tourniquet was deflated (total tourniquet time was 39 minutes), there was immediate return of vascular flow to the foot and all toes. CFT < 2 seconds to all toes, and had normal temperature gradient present with no evidence of ischemia. Hemostasis was achieved. A dressing was applied which consisted of Betadine soaked adaptic, 4x4 gauze, Kerlix and nimco dressing to the foot. The patient tolerated the above operative procedure well at the anesthesia well with no complications. The patient was transported to the recovery room with vital signs stable and in good condition. Post operative orders were placed. Post operative instructions were reviewed with patient today, as well as with his who was with him today. No weightbearing right foot, keep right foot elevated for at least 50 minutes of every hour, keep dressing clean, dry and intact to foot. Prescription for [place] 5/325mg tabs was prescribed: 1-2 tabs PO q 6 hours PRN pain for pain control. He was dispensed a surgical shoe for the right foot. Post operative xrays were obtained of the right foot in the recovery room which confirmed 1st MTPJ cheilectomy arthroplasty. No post operative complications and otherwise no acute changes and stable xrays otherwise. Grafts/Implants Used: None - Complications None
--- NOTE | 2021-02-01 09:05 | RAD_ITS ---
STUDY: X-RAY - RIGHT FOOT CLINICAL: Cheilectomy arthroplasty of the first metatarsophalangeal joint. TECHNIQUE: 3 view(s) of the foot. COMPARISON: Radiographs 05/20/2019. FINDINGS: There is a small posterior calcaneal enthesophyte. Normal visualized subtalar, talonavicular, and calcaneocuboid articulations. There is osseous fusion of the first tarsometatarsal articulation with intact bridging hardware. There is mild joint space narrowing of the metatarsophalangeal joint of the great toe and cheilectomy of the dorsal aspect of the first metatarsal head without evidence of complication. Normal tibial and fibular sesamoid bones. Normal interphalangeal joint of the great toe. Normal phalanges of the great toe. Normal second through fifth metatarsophalangeal joints. Normal interphalangeal joints and phalanges of the lesser toes. There is postoperative gas in the soft tissues adjacent to the first metatarsophalangeal joint. RAD/Foot min 3 Views IMPRESSION: Uncomplicated cheilectomy of the dorsal aspect of the first metatarsal head. Electronically Signed: James Dumont MD at 13:33 EST Tel , Service support ,
[2021-02-01 09:55] LABS: Bedside Glucose 208 mg/dL (70-110)
== END 2021-02-01 10:22 | disposition home or self-care (01) ==
LOC: SDC 05:42 → AC 05:43
PROVIDERS: PCP Family Medicine; Referring Provider Podiatrist; Visit Provider Podiatrist
PROC: (CPT 28289; principal; 2021-02-01 07:15)
DX: M20.21 Hallux rigidus, right foot (principal); M19.071 Primary osteoarthritis, right ankle and foot; E11.9 Type 2 diabetes mellitus without complications; E78.5 Hyperlipidemia, unspecified; E66.9 Obesity, unspecified; I10 Essential (primary) hypertension; F17.200 Nicotine dependence, unspecified, uncomplicated; Z68.30 Body mass index [BMI] 30.0-30.9, adult; Z79.899 Other long term (current) drug therapy; Z20.822 Contact with and (suspected) exposure to COVID-19; Z79.84 Long term (current) use of oral hypoglycemic drugs
CPT/HCPCS: 28289; 73620; 73630; 76000; 82962; 87426; 88305; 88311; C9803; J7120; J2405

== ENCOUNTER 2021-06-13 16:00 | Outpatient (RCR) | payer BC, SELFPAY ==
[2021-02-01 06:17] VITALS: BMI 30.1
== END 2021-06-29 23:59 ==
LOC: DC 16:00
PROVIDERS: PCP Family Medicine; Visit Provider Family Medicine
DX: E11.9 Type 2 diabetes mellitus without complications (principal)
CPT/HCPCS: G0108

== ENCOUNTER → 2021-08-16 | Outpatient (CLI) | payer BC, SELFPAY | END | disposition home or self-care (01) | LOC: LABSPEC 08-19 08:36 | PROVIDERS: PCP Family Medicine; Referring Provider Physician Assistant Surgical; Visit Provider Physician Assistant Surgical | DX: U07.1 COVID-19 (principal) | CPT/HCPCS: 87635; U0003 ==

== ENCOUNTER 2021-08-21 14:27 | Outpatient (CLI) | payer BC, SELFPAY ==
[2021-08-21 14:52] VITALS: BP 126/81; PULSE 86; RESP 16; TEMP 36.8; O2SAT 98; BMI 29.1
[2021-08-21] MEDS: 0.9% Saline Lock 10 ML Syringe IV (14:52)
[2021-08-21 15:35] VITALS: BP 122/80; PULSE 90; RESP 16; TEMP 37.6
[2021-08-21 16:34] VITALS: BP 132/84; PULSE 86; RESP 16; TEMP 37.1; O2SAT 98
== END 2021-08-21 16:40 | disposition home or self-care (01) ==
LOC: MS3OUT 14:28 → MS3 14:28
PROVIDERS: PCP Family Medicine; Referring Provider Nurse Practitioner Adult Health; Visit Provider Nurse Practitioner Adult Health
DX: Z23 Encounter for immunization (principal); U07.1 COVID-19
CPT/HCPCS: J7050; M0245; Q0245; A4216

== ENCOUNTER → 2022-05-02 | Outpatient (CLI) | payer OTHER, SELFPAY ==
[2022-05-02 17:39] LABS: Absolute Lymphocyte Count 1.82 X10^3/uL (0.83-4.51); Absolute Neutrophil Count 4.1 X10^3/uL (2.0-7.7); Basophil# 0.03 X10^3/uL; Basophil% 0.4 % (0-1); Eosinophil# 0.15 X10^3/uL; Eosinophils% 2.2 % (0-5); Hematocrit 45.4 % (40-54); Hemoglobin 16.3 g/dL (13.0-16.5); Lymphocyte # 1.82 X10^3/ul (0.83-4.51); Lymphocyte % 26.7 % (19-41); Mean Corp Hgb Conc 35.9 g/dL (32-36); Mean Corpuscular Hgb 31.8 pg (27.0-32.0); Mean Corpuscular Volume 88.7 fL (80-94); Mean Platelet Vol. 12.2 fl (6.2-12.0); Monocyte# 0.64 X10^3/uL; Monocyte% 9.4 % (0-10); NRBC Flagged by Analyzer 0 % (0-5); Neutrophil # 4.14 X10^3/uL (2.7-7.7); Neutrophil % 60.7 % (47-70); Platelet Count 220 K/mm3 (150-450); RBC Distribution Width CV 12.7 % (11.6-14.6); RBC Distribution Width SD 41.3 fl (35.1-43.9); Red Blood Count 5.12 M/mm3 (4.6-6.2); White Blood Count 6.8 K/mm3 (4.4-11.0)
[2022-05-02 17:59] LABS: Anion Gap 6 (5-15); BUN 14 mg/dL (7-18); BUN/Creat Ratio 13.2 RATIO (10-20); Calcium,Total 9.3 mg/dL (8.5-10.1); Chloride 106 mmol/L (98-107); Creatinine, Serum 1.06 mg/dL (0.70-1.30); EST Glomerular Filtration Rate 78 mL/min (>60); Est Glom Filt Rate - Afr Amer 94 mL/min (>60); Glucose 190 mg/dL (74-106); Potassium 3.6 mmol/L (3.5-5.1); Sodium Level 139 mmol/L (136-145)
== END | disposition home or self-care (01) ==
LOC: MTLAB 15:06
PROVIDERS: PCP Family Medicine; Referring Provider Family Medicine; Visit Provider Family Medicine
DX: E11.9 Type 2 diabetes mellitus without complications (principal)
CPT/HCPCS: 36415; 80048; 85025

== ENCOUNTER → 2023-01-30 | Outpatient (CLI) | payer OTHER, SELFPAY ==
[2023-01-30 12:22] LABS: Erythrocyte Sedimentation Rate 8 mm/hr (0-20)
[2023-01-30 12:23] LABS: Absolute Lymphocyte Count 1.67 X10^3/uL (0.83-4.51); Absolute Neutrophil Count 3.4 X10^3/uL (2.0-7.7); Basophil# 0.03 X10^3/uL; Basophil% 0.5 % (0-1); Eosinophil# 0.18 X10^3/uL; Eosinophils% 3.1 % (0-5); Hematocrit 44.9 % (40-54); Hemoglobin 16.3 g/dL (13.0-16.5); Lymphocyte # 1.67 X10^3/ul (0.83-4.51); Lymphocyte % 28.3 % (19-41); Mean Corp Hgb Conc 36.3 g/dL (32-36); Mean Corpuscular Hgb 32.5 pg (27.0-32.0); Mean Corpuscular Volume 89.4 fL (80-94); Mean Platelet Vol. 10.8 fl (6.2-12.0); Monocyte# 0.66 X10^3/uL; Monocyte% 11.2 % (0-10); NRBC Flagged by Analyzer 0 % (0-5); Neutrophil # 3.35 X10^3/uL (2.7-7.7); Neutrophil % 56.7 % (47-70); Platelet Count 200 K/mm3 (150-450); RBC Distribution Width CV 12.5 % (11.6-14.6); RBC Distribution Width SD 40.7 fl (35.1-43.9); Red Blood Count 5.02 M/mm3 (4.6-6.2); White Blood Count 5.9 K/mm3 (4.4-11.0)
[2023-01-30 12:30] LABS: Glucose, Dipstick 50 mg/dl (Normal); Ketone-Dipstick 5 mg/dl (Negative); Leukocyte Esterase-Dipstick 25 /ul (Negative); Nitrite-Dipstick Positive (Negative); Occult Blood-Urine Negative /ul (Negative); Protein-Dipstick 30 mg/dl (Negative); Specific Gravity, Urine 1.025 (1.002-1.030); Urine Bilirubin Dipstick Negative (Negative); Urine Clarity Clear (Clear); Urine Urobilinogen Normal (Normal)
[2023-01-30 12:33] LABS: Color, Urine SEE COMMENT BELOW (Yellow)
[2023-01-30 12:54] LABS: ALB/GLOB Ratio 1.2 RATIO (0.9-2.4); AST(SGOT) 41 U/L (15-37); Alanine Aminotransfer ALT/SGPT 47 U/L (16-61); Albumin, Serum 3.8 g/dL (3.2-5.0); Alkaline Phosphatase 94 U/L (45-117); Anion Gap 9 (5-15); BUN 16 mg/dL (7-18); BUN/Creat Ratio 16.6 RATIO (10-20); CPK Total, Creatine Kinase 194 U/L (39-308); CRP < 2.90 mg/L (0.0-3.0); Calcium,Total 8.8 mg/dL (8.5-10.1); Chloride 104 mmol/L (98-107); Cholesterol 132 mg/dL (200); Creatinine, Serum 0.97 mg/dL (0.70-1.30); EST Glomerular Filtration Rate 87 mL/min (>60); Est Glom Filt Rate - Afr Amer 105 mL/min (>60); Globulin 3.3 g/dL (2.2-4.2); Glucose 183 mg/dL (74-106); High Density Lipoprotein 31 mg/dL; PSA,Total - Annual Screen 0.61 ng/mL (0.00-4.00); Potassium 3.8 mmol/L (3.5-5.1); Protein, Total 7.1 g/dL (6.4-8.2); Sodium Level 140 mmol/L (136-145); Triglycerides 144 mg/dL; Very Low Density Lipoprotein 29 mg/dL (5-40)
[2023-01-30 13:15] LABS: Microalbumin,Random Urine 20.9 mg/L (NO RANGE EST.); Microalbumin:Creatinine Ratio 9.4 mg/g CRE (<30 mg/g CRE)
[2023-01-30 13:17] LABS: Hemoglobin A1c 6.4 % (3.8-5.6)
[2023-02-02 18:47] LABS: ANTINUCLEAR ANTIBODIES DIRECT Negative (Negative)
== END | disposition home or self-care (01) ==
LOC: BFHLAB 09:35
PROVIDERS: PCP Family Medicine; Visit Provider Family Medicine
DX: Z00.00 Encounter for general adult medical examination without abnormal findings (principal); E11.9 Type 2 diabetes mellitus without complications; R21 Rash and other nonspecific skin eruption; M79.10 Myalgia, unspecified site; Z12.5 Encounter for screening for malignant neoplasm of prostate
CPT/HCPCS: 36415; 80053; 80061; 81002; 82043; 82550; 82570; 83036; 84153; 85025; 85652; 86038; 86140; 86225; 86235; G0103

== ENCOUNTER 2023-11-25 20:00 | Emergency (ER) | payer OTHER, SELFPAY ==
[2023-11-25 20:00] VITALS: BP 192/106; PULSE 101; RESP 18; TEMP 36.4; O2SAT 100; BMI 27.3
[2023-11-25] MEDS: 0.9% Normal Saline (1000mL) 1,000 ML 1000 ML IV (21:01)
--- NOTE | 2023-11-25 21:01 | EX.ED.DYSGE1 ---
HPI History of Present Illness Chief Complaint: Hyperglycemia Informant: patient Narrative Narrative: Patient has a history of type 2 diabetes and was on metformin 500 mg twice daily. About a year ago, his old PCP took him off of his medication because he was doing so well and his sugars were well-controlled. He states about a week ago he started feeling poorly having polydipsia and polyuria, lightheadedness, so he started checking his blood sugars only at that point, seen that they were in the 3-500s every time he checked it, so he started taking his metformin again. He is feeling no different and his blood sugars are still high, 521 an hour prior to evaluation. No recent illness or obvious reason for this that he can think of. [facility] Medical History Diabetes Hypertension Hypertension Home Medications fenofibrate nanocrystallized 145 mg tablet 145 mg PO DAILY 01/28/21 [History Last Taken Unknown] lisinopril 5 mg tablet 5 mg PO DAILY 01/28/21 [History Last Taken 02/01/21 04:30] metformin 500 mg tablet 1,000 mg (2 x 500 mg) PO BID 30 days #0 tabs 11/26/23 [Rx Last Taken Unknown] Allergy/AdvReac Type Severity Reaction Status Date / Time bee venom protein (honey bee) Allergy Rash Verified 11/25/23 20:02 Family History (Updated 08/16/21 @ 15:23 by Evelyn Becker RN) Other Diabetes Hypertension Social History Smoking Status: Current every day smoker tobacco type: smokeless tobacco ROS ROS ED Constitutional Constitutional ED: Reports malaise; Denies chills or fever(s) Eyes Eyes: Denies change in vision or diplopia ENT ENT ED: Denies rhinorrhea or sore throat Cardiovascular Cardiovascular: Reports lightheadedness; Denies chest pain, palpitations or syncope Respiratory/Chest Respiratory/Chest: Denies cough or dyspnea Gastrointestinal Gastrointestinal: Denies abdominal pain, diarrhea, nausea or vomiting Genitourinary Genitourinary ED: Reports urinary frequency; Denies dysuria or hematuria Musculoskeletal Musculoskeletal: Denies back pain or neck pain Integumentary Denies abscess or rash Neurologic Neurologic: Denies headache(s), paresthesias or weakness Psychiatric Psychiatric: Denies anxiety or suicidal thoughts Endocrine Endocrinology: Reports polydipsia and polyuria EXAM Physical Exam Const Vital Signs: 11/25/23 20:00 Temperature 97.6 F L Temperature Source Temporal Pulse Rate 101 H Respiratory Rate 18 Blood Pressure 192/106 H Blood Pressure Mean 134 Pulse Ox 100 Oxygen Delivery Method Room Air Positive well nourished and well developed General Appearance ED: well developed and NAD HEENT Reports moist mucous membranes normocephalic and atraumatic Eyes PERRL and EOMs intact bilaterally Neck full ROM and supple Resp normal respiratory effort and clear to auscultation bilaterally Cardio regular rate, regular rhythm and no murmurs GI non-tender and non-distended Auscultation: normoactive bowel sounds Palpation: soft Back/Spine no CVA tenderness General Back: other FROM Extremity normal to inspection General Extremety ED: Negative for edema, pulses abnormal or tenderness General Extremity: Negative for edema or pulses abnormal Neuro oriented x3, CN's II-XII intact bilaterally and no sensory deficits noted Sensorium / Orientation: awake and alert Motor Exam: strength 5/5 throughout Skin no rashes or lesions noted and no wounds MDM MDM MDM Narrative Medical decision making narrative: Labs are reviewed, his bicarb is low but his anion gap is within normal limits, creatinine is up a little from normal. Blood sugar almost 500, he was given insulin here and we brought that down to 322 after several hours after the insulin. He had 2 L of fluid and feels a lot better. His other symptoms are gone. Urinalysis shows no signs of infection and he does not have a leukocytosis or anemia. At this time he is more stable to be discharged from the ER. He is hypertensive and that should be rechecked as an outpatient, and I can also tell him to safely double his metformin to 1000 mg twice daily until he follows up. It is 11/26 and he states his insurance is changing for the new year and he must also change PCPs, I offered to write him a new prescription for metformin but he states he has plenty right now. I advised in the meantime until he can see a doctor to limit his sugar and carbohydrate intake. Lab Data Attestation: I reviewed the patient's lab results. Labs: Laboratory Results - last 24 hr 11/25/23 11/25/23 11/25/23 21:00 21:04 21:38 WBC 5.6 RBC 4.68 Hgb 15.8 Hct 41.2 MCV 88.0 MCH 33.8 H MCHC 38.3 H RDW Std Deviation 39.6 RDW Coeff of Chyu 12.3 Plt Count 164 MPV 11.3 Immature Gran % (Auto) 1.300 H Neut % (Auto) 54.5 Lymph % (Auto) 31.8 [place] % (Auto) 9.7 Eos % (Auto) 2.2 Baso % (Auto) 0.5 Absolute Neuts (auto) 3.0 Absolute Lymphs (auto) 1.77 Nucleated RBC % 0 Platelet Estimate ADEQUATE RBC Morphology N CHROM Anisocytosis RARE Hu[place] Cells SCAN CRITERIA MET Sodium 134 L Potassium 3.9 Chloride 100 Carbon Dioxide 19.0 L Anion Gap 15 BUN 12 Creatinine 1.38 H Estim Creat Clear Calc 65.93 Est GFR (MDRD) Af Amer 69 Est GFR (MDRD) Non-Af 57 L BUN/Creatinine Ratio 8.7 L Glucose 499 H* Calcium 7.6 L Urine Color Yellow Urine Clarity Clear Urine pH 6.0 Ur Specific [place] 1.010 Urine Protein Negative Urine Glucose (UA) 1000 H Urine Ketones 5 H Urine Occult Blood Negative Urine Nitrite Negative Urine Bilirubin Negative Urine Urobilinogen Normal Ur Leukocyte Esterase Negative Urine RBC 0 SEEN Urine WBC 0 SEEN Ur Squamous Epith Cells 0 SEEN Urine Bacteria 0 SEEN Urine Mucus 0 SEEN POC Glucose 426 H 11/25/23 22:58 WBC RBC Hgb Hct MCV MCH MCHC RDW Std Deviation RDW Coeff of [place] Plt Count MPV Immature Gran % (Auto) Neut % (Auto) Lymph % (Auto) [place] % (Auto) Eos % (Auto) Baso % (Auto) Absolute Neuts (auto) Absolute Lymphs (auto) Nucleated RBC % Platelet Estimate RBC Morphology Anisocytosis [place] Cells Sodium Potassium Chloride Carbon Dioxide Anion Gap BUN Creatinine Estim Creat Clear Calc Est GFR (MDRD) Af Amer Est GFR (MDRD) Non-Af BUN/Creatinine Ratio Glucose Calcium Urine Color Urine Clarity Urine pH Ur Specific [place] Urine Protein Urine Glucose (UA) Urine Ketones Urine Occult Blood Urine Nitrite Urine Bilirubin Urine Urobilinogen Ur Leukocyte Esterase Urine RBC Urine WBC Ur Squamous Epith Cells Urine Bacteria Urine Mucus POC Glucose 322 H Discharge Plan Triage Chief Complaint: Hyperglycemia ED Provider: Willie Kumar Dx/Rx/DC Orders Clinical Impression: Hyperglycemia due to type 2 diabetes mellitus, Episode of hypertension, Mild dehydration Instructions: ED Diabetic Hyperglycemia Prescriptions: Continued lisinopril 5 MG tablet 5 mg PO DAILY fenofibrate nanocrystallized 145 MG tablet 145 mg PO DAILY Changed metformin 500 mg tablet 1,000 mg PO BID 30 Days Qty: 0 0RF Patient Comments: TAKE 1 TABLET BY MOUTH TWICE DAILY WITH FOOD Discontinued ibuprofen 200 MG capsule 200 mg PO PRN PRN (Reason: Pain 1-10 Or Fever) Primary Care Provider: Garrison Bishop Referrals: Garrison Bishop, DO [Primary Care Provider] - As soon as possible Activity Restrictions/Additional Instructions: Avoid anti-inflammatory medications like ibuprofen or Aleve since your kidney numbers are a little abnormal and these can make them worse, you will need to follow-up so that you can have your kidney function rechecked to see if it is getting better or worse. Also need to follow-up to have your blood pressure rechecked since it was high today. Disposition Disposition: Home, Self Care
[2023-11-25 21:21] LABS: Bedside Glucose 426 mg/dL (74-106)
[2023-11-25] MEDS: Insulin Lispro 100 UNIT/ML INSULN.PEN 22 UNIT SC (21:30)
[2023-11-25] MEDS: 0.9% Normal Saline (1000mL) 1,000 ML 999 ML IV (21:36)
[2023-11-25 21:45] LABS: Bacteria 0 SEEN /hpf (None Seen); Color, Urine Yellow (Yellow); Glucose, Dipstick 1000 mg/dl (Normal); Ketone-Dipstick 5 mg/dl (Negative); Leukocyte Esterase-Dipstick Negative /ul (Negative); Mucous, Urine 0 SEEN /hpf (<or=2+); Nitrite-Dipstick Negative (Negative); Occult Blood-Urine Negative /ul (Negative); Protein-Dipstick Negative (Negative); Red Blood Cells-Urine 0 SEEN /hpf (0-5); Squamous Epithelial Cells - UA 0 SEEN /hpf (0-5); Urine Bilirubin Dipstick Negative (Negative); Urine Clarity Clear (Clear); Urine Urobilinogen Normal (Normal); White Blood Cells 0 SEEN /hpf (0-5)
[2023-11-25 21:47] LABS: Absolute Lymphocyte Count 1.77 X10^3/uL (0.83-4.51); Basophil# 0.03 X10^3/uL; Basophil% 0.5 % (0-1); Eosinophil# 0.12 X10^3/uL; Eosinophils% 2.2 % (0-5); Hematocrit 41.2 % (40-54); Hemoglobin 15.8 g/dL (13.0-16.5); Lymphocyte # 1.77 X10^3/ul (0.83-4.51); Lymphocyte % 31.8 % (19-41); Mean Corp Hgb Conc 38.3 g/dL (32-36); Mean Corpuscular Hgb 33.8 pg (27.0-32.0); Mean Platelet Vol. 11.3 fl (6.2-12.0); Monocyte# 0.54 X10^3/uL; Monocyte% 9.7 % (0-10); NRBC Flagged by Analyzer 0 % (0-5); Neutrophil # 3.03 X10^3/uL (2.7-7.7); Neutrophil % 54.5 % (47-70); POSITIVE COUNT YES; Platelet Count 164 K/mm3 (150-450); RBC Distribution Width CV 12.3 % (11.6-14.6); RBC Distribution Width SD 39.6 fl (35.1-43.9); Red Blood Count 4.68 M/mm3 (4.6-6.2); White Blood Count 5.6 K/mm3 (4.4-11.0)
[2023-11-25 22:07] LABS: Differential Indicated SCAN CRITERIA MET
[2023-11-25 22:46] LABS: Anisocytosis RARE; Burr Cells SCAN CRITERIA MET; Platelet Estimate ADEQUATE (ADEQ); Red Cell Morphology N CHROM NORMAL (NORM C&C)
[2023-11-25 22:50] LABS: Anion Gap 15 (5-15); BUN 12 mg/dL (7-18); BUN/Creat Ratio 8.7 RATIO (10-20); Calcium,Total 7.6 mg/dL (8.5-10.1); Chloride 100 mmol/L (98-107); Creatinine, Serum 1.38 mg/dL (0.70-1.30); EST Glomerular Filtration Rate 57 mL/min (>60); Est Glom Filt Rate - Afr Amer 69 mL/min (>60); Estimated Creatinine Clearance 65.93 ml/min; Glucose 499 mg/dL (74-106); Potassium 3.9 mmol/L (3.5-5.1); Sodium Level 134 mmol/L (136-145)
[2023-11-25 23:17] LABS: Bedside Glucose 322 mg/dL (74-106)
[2023-11-26 00:50] VITALS: BP 136/98; PULSE 79; RESP 18; O2SAT 97
== END 2023-11-26 00:52 | disposition home or self-care (01) ==
PROVIDERS: Emergency Provider Emergency Medicine; PCP Family Medicine; Visit Provider Emergency Medicine
DX: E11.65 Type 2 diabetes mellitus with hyperglycemia (principal); I10 Essential (primary) hypertension; E86.0 Dehydration; Z79.84 Long term (current) use of oral hypoglycemic drugs; F17.220 Nicotine dependence, chewing tobacco, uncomplicated; R35.0 Frequency of micturition; R63.1 Polydipsia
CPT/HCPCS: 80048; 81001; 82962; 85025; 96360; 96361; 99283; J7030

== ENCOUNTER → 2024-02-04 | Outpatient (CLI) | payer OTHER, SELFPAY ==
--- NOTE | 2024-02-04 10:47 | ART_ITS ---
Reason For Study: Frequent leg cramps Procedure A bilateral lower extremity continuous wave Doppler with analog waveform analysis and ankle brachial indexes. Left Segmental Pressures Left brachial= 132mmHg. Left posterior tibial artery = 182mmHg. Left dorsalis pedis artery = 162mmHg. Left digit = 173 mmHg. The left dorsalis pedis waveforms are triphasic. The left posterior tibial artery waveforms are triphasic. Right Segmental Pressures Right brachial= 132mmHg. Right posterior tibial artery = 165mmHg. Right dorsalis pedis artery = 155mmHg. Right digit = 149 mmHg. The right dorsalis pedis waveforms are triphasic. The right posterior tibial artery waveforms are triphasic. Indices The right ankle brachial index by the dorsalis pedis is 1.17. The right ankle brachial index by the posterior tibial artery is 1.25. The right digital-brachial index is 1.13. The left ankle brachial index by the dorsalis pedis is 1.23. The left ankle brachial index by the posterior tibial artery is 1.38. The left digital-brachial index is 1.31. VL/Ankle Brachial Index Interpretation Summary Normal right lower extremity posterior tibialis and dorsalis pedis ankle-brachi al indices of 1.25 and 1.17 respectively with normal triphasic Doppler waveforms Normal right digital brachial index of 1.13 Normal left lower extremity posterior tibialis and dorsalis pedis ankle-brachia l indices of 1.38 and 1.23 respectively Normal left digital brachial index of 1.31 Ordering Physician: Adan Herring Referring Physician: ADAN HERRING MD Performed By: Gina Josue RVT
== END | disposition home or self-care (01) ==
LOC: CVS 10:46
PROVIDERS: PCP Family Medicine; Referring Provider Family Medicine; Visit Provider Family Medicine
DX: R25.2 Cramp and spasm (principal)
CPT/HCPCS: 93922

== ENCOUNTER 2025-05-16 08:41 | Day surgery (SDC) | payer OTHER, SELFPAY ==
[2025-05-16] VITALS (9 sets, daily range): BP systolic 107–114; BP diastolic 77–84; PULSE 60–78; RESP 16–18; TEMP 36.9–37.2; O2SAT 96–99; BMI 25.4
[2025-05-16] MEDS: Lactated Ringers 1,000 ML 15 ML IV (09:17)
--- NOTE | 2025-05-16 09:22 | PCM.PRE.AN2 ---
ASA Classification* ASA Classification ASA Classification: 2 (HTN, DM) Assessment & Plan Anesthesia* Anesthesia Assessment Anesthesia Assessment: Discussed sedation and/or anesthesia options, risks, benefits, and alternatives with patient/parents/legal guardian/POA. Questions invited. The patient/parents/legal guardian/POA seems to understand and agrees to proceed with anesthesia plan. Reviewed the physical assessment, medical history, allergy history and patient home medications list prior to surgery/procedure/anesthetic and documented any changes. Performed airway and anesthesia risk assessments. Anesthesia Type Anesthesia Type: General History Source History Obtained from:: Patient and Chart Anesthesia Focused Assessment* Temperature: 98.4 F Pulse Rate: 60 Blood Pressure: 114/78 Respiratory Rate: 16 Pulse Ox: 98 Oxygen Delivery Method: Room Air Airway Assessment Mouth opens: >3 cm Mallampati Score: II Teeth Condition: Intact and Missing (missing a few ) Neck Range of motion (ROM): Full ROM Labs Anesthesia Preop lab: CBC WBC 5.6 K/mm3 (4.4-11.0) 11/25/23 21:04 11/25/23 RBC 4.68 M/mm3 (4.6-6.2) 11/25/23 21:04 11/25/23 Hgb 15.8 g/dL (13.0-16.5) 11/25/23 21:04 11/25/23 Hct 41.2 % (40-54) 11/25/23 21:04 11/25/23 Plt Count 164 K/mm3 (150-450) 11/25/23 21:04 11/25/23 CHEMISTRY Potassium 3.9 mmol/L (3.5-5.1) 11/25/23 21:04 11/25/23 Sodium 134 mmol/L (136-145) L 11/25/23 21:04 11/25/23 Magnesium 2.3 mg/dL (1.6-2.6) 09/19/20 15:33 09/19/20 BUN 12 mg/dL (7-18) 11/25/23 21:04 11/25/23 Creatinine 1.38 mg/dL (0.70-1.30) H 11/25/23 21:04 11/25/23 Glucose 499 mg/dL (74-106) H* 11/25/23 21:04 11/25/23 POC Glucose 322 mg/dL (74-106) H 11/25/23 22:58 11/25/23 TSH 0.97 uIU/mL (0.358-3.74) 09/19/20 15:33 09/19/20 COAG PT 13.8 SECONDS (11.7-14.9) 03/16/18 01:53 03/16/18 Pre-Assessment Diagnosis/Proposed Procedure Planned Operative Procedure(s): COLONOSCOPY Anesthesia History 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 When Was Last Pacemaker Check QUESTION #4 FULL TEXT: You/Your Family Experience fever (hyperthermia) with Anesthesia Last Oral Intake Last Oral intake: Last Oral Intake NPO since 05:30 05/16/25 09:09 Meds taken in AM with sips of water? 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 Female No 05/11/25 16:01 HX of Motion Sickness No 05/11/25 16:01 HX of N/V After Surgery No 05/11/25 16:01 Non-Smoker Yes 05/11/25 16:01 Duration of Surgery greater No 05/11/25 16:01 than 60 minutes Number of Risk Factors 1 05/11/25 16:01 PONV Score Low Risk 05/11/25 16:01 Height & Weight Height & Weight: Anesthesia: Height & Weight Height 5 ft 11 in 05/16/25 09:09 Weight: 83 kg 05/16/25 09:09 Body Mass Index (BMI) 25.4 05/16/25 09:09 Respiratory Assessment Respiratory Assessment - 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 Has anyone observed you stop No 05/11/25 16:01 breathing during sleep? STOP Results Negative 05/11/25 16:01 QUESTION #5 FULL TEXT : Do you snore loudly (louder than talking or can be heard through closed doors)? 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 Specify any problems Hx of Preganancy in last 3 N/A 05/11/25 16:01 Months Nurse Filling Out Transfusion [email or web address] 05/11/25 16:01 & Questions: Date: 05/11/25 05/11/25 16:01 Time: 16:04 05/11/25 16:01 Patient unable to answer at this time (ie. confused, unrespo /Reproduction History /Reproductive History - precision thread grinder operator: /Reproductive Hx- precision thread grinder operator Hx Now No 05/11/25 16:01 Gestational Age (in weeks): EDC: Hx Hx Para Hx Section SAB No 05/11/25 16:01 Active Medications Active Medications: Current Medications Generic Name Dose Route Start Last Admin Trade Name Freq PRN Reason Stop Dose Admin Lactated Ringer's 1,000 mls @ 15 mls/hr 05/16/25 09:00 05/16/25 09:17 IV 15 mls/hr .Q48H FE Administration PFSH Medical History (Updated 05/11/25 @ 16:10 by Rico Paniagua) History of stress test COVID-19 Contact with or suspected exposure to other viral communicable disease Diabetes Hypertension Head congestion Chest pain Home Medications ?Medication ?Instructions ?Recorded ?Last Taken ?Type c-pain cream 1 dose topical 04/10/25 Unknown History metanx FC 1 dose PO 04/10/25 Unknown History Allergy/AdvReac Type Severity Reaction Status Date / Time bee venom protein (honey bee) Allergy Rash Verified 05/16/25 09:09 Family History (Updated 04/10/25 @ 13:59 by Yvette Man) Mother Diabetes Hypertension Breast cancer Brother Diabetes Hypertension Surgical History History of bunionectomy Social History (Updated 04/10/25 @ 14:00 by Yvette Man) Smoking Status: Current some day smoker tobacco type: smokeless tobacco Review of Systems (Anesthesia) ROS Narrative System reviewed and no additional complaints, except as documented. Physical Exam Const alert, oriented x3 and average body habitus Resp normal respiratory effort, normal air movement and clear to auscultation bilaterally Cardio regular rate, regular rhythm, no murmurs and diaphoretic
--- NOTE | 2025-05-16 09:28 | HP.PCM_ITS ---
History and Physical Date of Admission: 05/16/25 Intake Vital Signs 11/25/2320:00 04/10/2514:00 Height 5 ft 11 in 5 ft 11 in Weight: 194 lb BMI 27.0 BP 143/93 H Blood Pressure Location Rt brachial Position Sitting Respiration 17 Pulse 74 Pulse Source Monitor Pulse Oximetry (%) 98 Oxygen Delivery Method room air Intake Visit Reasons: COLONOSCOPY, CONSTIPATION Chief Complaint: colonoscopy Is patient in pain?: No Allergies bee venom protein (honey bee) Allergy (Verified 04/10/25 14:01) Rash Medications ?Medication ?Instructions ?Recorded ?Confirmed ?Type c-pain cream topical 04/10/25 04/10/25 History metanx FC PO 04/10/25 04/10/25 History PFSH Medical History (Updated 04/10/25 @ 14:[address] Arik Colorado MD) Head congestion Chest pain Contact with or suspected exposure to other viral communicable disease COVID-19 Diabetes Hypertension Hypertension Surgical History (Updated 04/10/25 @ 13:55 by Yvette Man) History of bunionectomy Family History (Updated 04/10/25 @ 13:59 by Yvette Man) Mother Diabetes Hypertension Breast cancerBrother Diabetes Hypertension Social History (Updated 04/10/25 @ 14:00 by Yvette Man) Smoking Status: Former smoker HPI HPI HPI: Patient is a 55-year-old male here for stool change. The patient reports that he has been irregular his entire life until stopping his GLP-1. Since stopping that he has been having constipation and only goes to the bathroom every 3 to 4 days. He denies blood in the stool or abdominal pain. ROS General General: Yes fatigue; No weight change, appetite, colon cancer, breast cancer or weakness HEENT HEENT: Yes difficulty swallowing; No eye injury, eye surgery, swollen glands or hoarseness Endo Endocrine: Yes diabetes mellitus; No thyroid disease, thyroid cancer, Hair loss, heat intolerance or cold intolerance Additional Details: diet controlled Skin Skin: No rash or changing moles Musc Musculoskeletal: No back problems, arthritis, rheumatoid arthritis, gout or joint pain Cardio Cardiovascular: Yes high blood pressure; No murmur, pacemaker, heart disease, atrial fibrillation, heart attack, heart stent, palpitations, shortness of breath with exertion or chest pain Psych Psychiatric: No depression, anxiety or hearing voices Resp Respiratory: No shortness of breath, No sleep apnea, No cough, No COPD, No asthma, No emphysema and No wheezing Gastro Gastrointestinal: No abdominal pain, No nausea or vomiting, No diarrhea, Yes constipation, No blood in stool, No acid reflux, No hemorrhoids, No ulcers, No gallbladder problem and No black,tarry stools Simon Hematologic: No blood thinners, No blood disorders, No bleeding, No anemia and No blood clots Neuro Neurologic: No system reviewed and no additional complaints, except as documented, No as per HPI, No abnormal gait, No abnormal hearing, No abnormal movements, No abnormal speech, No behavioral changes, No burning sensations, No confusion, No convulsions, No disequilibrium, No dizziness, No localized weakness, No frequent falls, No headache(s), No lack of coordination, No loss of vision, No memory loss, Yes numbness, No other visual disturbances, No radicular pain, No restless legs, No sensory deficit, No syncope, Yes tingling, No tremor(s), No weakness and No other Exam Const General: cooperative Orientation: alert and oriented x3 [facility] Head: normal to inspection Neck Neck: normal visual inspection and full ROM Chest Chest palpation & inspection: normal inspection of the chest Resp Effort & Inspection: normal respiratory effort Auscultation: clear to auscultation bilaterally Cardio Rate: regular rate Rhythm: regular rhythm GI Inspection: non-distended Palpation: soft and nontender Skin General: no rashes or lesions noted Neuro General: patient alert and patient oriented x3 Extrem General: full ROM Psych Appearance: grossly normal Mental Status: mental status grossly normal Assessment and Plan Assessment and Plan (1) Constipation: Status: Acute Plan: The patient has new onset constipation. He said this started when stopping his GLP-1 antagonist. He reports that he has been having bowel movements every 3 to 4 days when he used to be regular. I discussed performing a colonoscopy to evaluate as he has never had one. I explained endoscopy in detail to the patient. I explained the risks including but not limited to stroke or heart attack with anesthesia, perforation of the GI tract, bleeding, infection. I explained that any of these could necessitate further emergency surgery. The patient understands and all questions were answered sufficiently. The patient wishes to proceed with procedure. Arik Colorado MD Pager: [phone] [address] [place] [address], [address] [place] [address] Office: I have examined the patient and the H&P has been reviewed. There are no clinical changes since date of exam.
[2025-05-16 09:45] LABS: Bedside Glucose 241 mg/dL (74-106)
--- NOTE | 2025-05-16 10:10 | OP.CCLET_ITS ---
05/16/2025 Adan Herring Md Re : Colonoscopy procedure for Ismael Caraballo Dear Nima This procedure was performed on Friday, May 16, 2025. My impressions and recommendations are as follows: Impressions : - The entire examined colon is normal on direct and retroflexion views. - No specimens collected. Recommendations : - Discharge patient to home. - Resume previous diet. - Continue present medications. - Repeat colonoscopy in 10 years for screening purposes. My findings are described in the full procedure note, which is enclosed. If I can be of further assistance, please feel free to contact me at Doctor phone number(s): , Work: . Sincerely, Arik Colorado MD 05/16/2025 10:10:08 AM This report has been signed electronically.
--- NOTE | 2025-05-16 10:10 | OP.COLON_ITS ---
Patient Name: Ismael Caraballo Procedure Date: 05/16/2025 9:35 AM Date of : 1970 Age: 55 Procedure: Colonoscopy Indications: Change in stool caliber, Constipation Providers: Arik Colorado MD Referring MD: Adan Herring Md Medicines: Propofol per Anesthesia Patient Profile: This is a 55 year old male. Refer to note in patient chart for documentation of history and physical. Last Colonoscopy: several years ago. Complications: No immediate complications. Procedure: Pre-Anesthesia Assessment: - Prior to the procedure, a History and Physical was performed, and patient medications and allergies were reviewed. The patient's tolerance of previous anesthesia was also reviewed. The risks and benefits of the procedure and the sedation options and risks were discussed with the patient. All questions were answered, and informed consent was obtained. Prior Anticoagulants: The patient has taken no anticoagulant or antiplatelet agents. After reviewing the risks and benefits, the patient was deemed in satisfactory condition to undergo the procedure. After I obtained informed consent, the scope was passed under direct vision. Throughout the procedure, the patient's blood pressure, pulse, and oxygen saturations were monitored continuously. The Colonoscope was introduced through the anus and advanced to the cecum, identified by appendiceal orifice and ileocecal valve. The colonoscopy was performed without difficulty. The patient tolerated the procedure well. The quality of the bowel preparation was good. The ileocecal valve, appendiceal orifice, and rectum were photographed. The Colonoscope was introduced through the and advanced to. Scope In: 9:43:06 AM Scope Withdrawal Time 0 hours 13 minutes 1 second Scope Out: 10:07:31 AM Total Procedure Duration Time 0 hours 24 minutes 25 seconds Findings: The entire examined colon appeared normal on direct and retroflexion views. Impression: - The entire examined colon is normal on direct and retroflexion views. - No specimens collected. Recommendation: - Discharge patient to home. - Resume previous diet. - Continue present medications. - Repeat colonoscopy in 10 years for screening purposes. Procedure Code(s): --- Professional --- 59820, Colonoscopy, flexible; diagnostic, including collection of specimen(s) by brushing or washing, when performed (separate procedure) Diagnosis Code(s): --- Professional --- R19.5, Other fecal abnormalities K59.00, Constipation, unspecified CPT copyright 2021 [employer]. All rights reserved. The codes documented in this report are preliminary and upon lapel padder blindstitch review may be revised to meet current compliance requirements. Arik Colorado MD 05/16/2025 10:10:08 AM This report has been signed electronically. Number of Addenda: 0 Note Initiated On: 05/16/2025 9:35 AM
--- NOTE | 2025-05-16 10:19 | PCM.POST.ANE ---
Anesthesia: Postop Eval I Current Vital Signs Temperature: 98.4 F Pulse Rate: 76 Blood Pressure: 112/80 Respiratory Rate: 16 Pulse Ox: 98 Oxygen Delivery Method: Room Air Assessment Airway patent: Yes Spontaneous unlabored respirations: Yes Mental status: Asleep nausea: No Vomiting: No Anesthesia Complication: No Fluid Hydration Crystalloid volume administer (ml): 500 Total IV fluid infused: 500 Progress Note Anesthesia document: Postop Eval 1 completed: Yes
--- OUTSIDE RECORDS SUMMARY | 2025-05-16 10:47 | XMS RPT_ITS | CCD ---
Author Organization [facility] Care Team Providers Care Ground [employer] Director Name Role Phone MD Adan Herring Primary Care Provider MD Adan Herring Referring Provider [phone] Fausto Tejeda Attending Provider Arik [place] Attending Unavailable Adan Herring Referring Unavailable Adan Herring Primary Care Unavailable Arik [place] Attending Unavailable Adan Herring Primary Care Unavailable Allergies Allergy Classification Reported Allergen(s) Allergy Type Date of Onset Reaction(s) Facility (4 sources) bee venom protein (honey bee) Allergy to substance 08-16-2021 Rash [facility] (1 source) bee venom protein (honey bee) Drug allergy (disorder) 05-11-2025 [facility] Repository Medications Current Medications Medication Drug Class(es) Dates Sig (Normalized) Sig (Original) fenofibrate 145 mg oral tablet (4 sources) Peroxisome Proliferator Receptor alpha Agonist Start: 01-28-2021 take 145 mg by mouth once daily Fenofibrate Nanocrystallized Active 145 MG PO DAILY January 28, 2021 1:00am lisinopril 5 mg oral tablet (4 sources) Angiotensin Converting Enzyme Inhibitor Start: 01-28-2021 take 5 mg by mouth once daily Lisinopril Active 5 MG PO DAILY January 28, 2021 1:00am metFORMIN hydrochloride 500 mg oral tablet (6 sources) Biguanide Start: 11-26-2023 take 1000 mg by mouth twice daily Metformin Active 1000 MG PO TWICE A DAY November 26, 2023 1:21am Start: 08-21-2021 End: 11-26-2023 take 500 mg by mouth twice daily Metformin Discontinued 500 MG PO TWICE A DAY August 21, 2021 12:00am November 26, 2023 1:22am Completed/Discontinued Medications Medication Drug Class(es) Dates Sig (Normalized) Sig (Original) acetaminophen 325 mg / HYDROcodone bitartrate 5 mg oral tablet (4 sources) Opioid Agonist Start: 02-01-2021 End: 02-05-2021 take 1 tablet by mouth every six hours as needed Hydrocodone-Acetam inophen Discontinued 1 - 2 TABLET PO EVERY 6 HOURS NEEDED 24 4 February 01, 2021 February 05, 2021 1:02am acetaminophen 325 mg / oxyCODONE hydrochloride 5 mg oral tablet (4 sources) Opioid Agonist Start: 05-20-2019 End: 05-28-2019 take 1 tablet by mouth every six hours as needed Oxycodone-Acetamin ophen Discontinued 1 - 2 TABLET PO EVERY 6 HOURS NEEDED 32 4 May 20, 2019 May 28, 2019 12:08am ibuprofen 200 mg oral capsule (4 sources) Nonsteroidal Anti-inflammatory Drug Start: 01-28-2021 End: 11-26-2023 Ibuprofen Discontinued 200 MG PO NEEDED January 28, 2021 1:00am November 26, 2023 1:20am Problems Problem Classification Problem Date Documented Da te Episodic/Chronic Diabetes mellitus with complications (2 sources) Hyperglycemia due to type 2 diabetes mellitus; Translations: [Type 2 diabetes mellitus with hyperglycemia] 11-26-2023 Chronic Diabetes mellitus without complication (8 sources) Diabetes mellitus; Translations: [Type 2 diabetes mellitus without complications] 08-20-2021 Chronic Essential hypertension (2 sources) Elevated blood pressure; Translations: [Essential (primary) hypertension] 11-26-2023 Chronic Fluid and electrolyte disorders (2 sources) Mild dehydration; Translations: [Dehydration] 11-26-2023 Episodic Immunizations and screening for infectious disease (4 sources) Contact with and (suspected) exposure to other viral communicable diseases; Translations: [Contact with or suspected exposure to other viral communicable disease] 08-16-2021 Episodic Nonspecific chest pain (4 sources) Chest pain; Translations: [Chest pain, unspecified] 05-20-2019 Episodic Other upper respiratory disease (4 sources) Respiratory tract congestion; Translations: [Nasal congestion] 08-16-2021 Episodic Viral infection (4 sources) Disease caused by 2019-nCoV; Translations: [COVID-19] 08-20-2021 Episodic Results Test Name Value Interpretation Reference Range Facility Surgery Visit Reporton 04-10 Surgery Visit Report [facility] [address] [place] [address] OFFICE VISIT Date of Service: 04/10/25 MR#: [id number] Acct: [id number] Name: CINTHYA YANEZ Rep #: [id number] : 1970 Provider: Dr. Arik guzman MD Age/Sex: 55/M Location: [facility] Status: Signed Intake Vital Signs 11/25/23 20:00 04/10/25 14:00 Height 5 ft 11 in 5 ft 11 in Weight: 194 lb BMI 27.0 BP 143/93 H Blood Pressure Location Rt brachial Position Sitting Respiration 17 Pulse 74 Pulse Source Monitor Pulse Oximetry (%) 98 Oxygen Delivery Method room air Intake Visit Reasons: COLONOSCOPY, CONSTIPATION Chief Complaint: colonoscopy Is patient in pain?: No Allergies bee venom protein (honey bee) Allergy (Verified 04/10/25 14:01) Rash Medications ???Medication ???Instructions ???Recorded ???Confirmed ???Type c-pain cream topical 04/10/25 04/10/25 History metanx FC PO 04/10/25 04/10/25 History PFSH Medical History (Updated 04/10/25 @ 14:[address] Arik [place] MD) Head congestion Chest pain Contact with or suspected exposure to other viral communicable disease COVID-19 Diabetes Hypertension Hypertension Surgical History (Updated 04/10/25 @ 13:55 by Yvette Man) History of bunionectomy Family History (Updated 04/10/25 @ 13:59 by Yvette Man) Mother Diabetes Hypertension Breast cancer Brother Diabetes Hypertension Social History (Updated 04/10/25 @ 14:00 by Yvette Man) Smoking Status: Former smoker HPI HPI HPI: Patient is a 55-year-old male here for stool change. The patient reports that he has been irregular his entire life until stopping his GLP-1. Since stopping that he has been having constipation and only goes to the bathroom every 3 to 4 days. He denies blood in the stool or abdominal pain. ROS General General: Yes fatigue; No weight change, appetite, colon cancer, breast cancer or weakness HEENT HEENT: Yes difficulty swallowing; No eye injury, eye surgery, swollen glands or hoarseness Endo Endocrine: Yes diabetes mellitus; No thyroid disease, thyroid cancer, Hair loss, heat intolerance or cold intolerance Additional Details: diet controlled Skin Skin: No rash or changing moles Musc Musculoskeletal: No back problems, arthritis, rheumatoid arthritis, gout or joint pain Cardio Cardiovascular: Yes high blood pressure; No murmur, pacemaker, heart disease, atrial fibrillation, heart attack, heart stent, palpitations, shortness of breath with exertion or chest pain Psych Psychiatric: No depression, anxiety or hearing voices Resp Respiratory: No shortness of breath, No sleep apnea, No cough, No COPD, No asthma, No emphysema and No wheezing Gastro Gastrointestinal: No abdominal pain, No nausea or vomiting, No diarrhea, Yes constipation, No blood in stool, No acid reflux, No hemorrhoids, No ulcers, No gallbladder problem and No black,tarry stools Simon Hematologic: No blood thinners, No blood disorders, No bleeding, No anemia and No blood clots Neuro Neurologic: No system reviewed and no additional complaints, except as documented, No as per HPI, No abnormal gait, No abnormal hearing, No abnormal movements, No abnormal speech, No behavioral changes, No burning sensations, No confusion, No convulsions, No disequilibrium, No dizziness, No localized weakness, No frequent falls, No headache(s), No lack of coordination, No loss of vision, No memory loss, Yes numbness, No other visual disturbances, No radicular pain, No restless legs, No sensory deficit, No syncope, Yes tingling, No tremor(s), No weakness and No other Exam Const General: cooperative Orientation: alert and oriented x3 HENID Head: normal to inspection Neck Neck: normal visual inspection and full ROM Chest Chest palpation inspection: normal inspection of the chest Resp Effort Inspection: normal respiratory effort Auscultation: clear to auscultation bilaterally Cardio Rate: regular rate Rhythm: regular rhythm GI Inspection: non-distended Palpation: soft and nontender Skin General: no rashes or lesions noted Neuro General: patient alert and patient oriented x3 Extrem General: full ROM Psych Appearance: grossly normal Mental Status: mental status grossly normal Assessment and Plan Assessment and Plan (1) Constipation: Status: Acute Plan: The patient has new onset constipation. He said this started when stopping his GLP-1 antagonist. He reports that he has been having bowel movements every 3 to 4 days when he used to be regular. I discussed performing a colonoscopy to evaluate as he has never had one. I explained endoscopy in detail to the patient. I explained the risks including but not limited to stroke or heart attack with (more content not included)... Normal [facility] Absolute lymphocyte countOrd ered By: Willie Kumar on 11-25-2023 Lymphocytes Auto (Unsp spec) [#/Vol] 1.77 10*3/uL 0.83-4.51 [facility] Basophil percentageOrdered B y: Willie Kumar on 11-25-2023 Basophil percentage 0 SEEN /hpf 0-5 [facility] Basophils/100 WBC (Bld) 0.5 % 0-1 [facility] Chloride [Moles/Vol] 100 mmol/L 98-107 [facility] Eosinophils/100 WBC (Bld) 2.2 % 0-5 [facility] Glucose [Mass/Vol] 499 mg/dL 74-106 [facility] Comment on above: Moderate Lipemia, Re sult may be falsely increased. Critical Result(s) Called at: 22:48:34 11/25/2023 by: SHERI RUIZ TO MMARTIN2. Results read back by same.Glucose result greater than or equal to 200 mg/dLsuggests DIABETES MELLITUS per A.D.A. criteria. Neutrophils (Bld) [#/Vol] 3.0 10*3/uL 2.0-7.7 [facility] Neutrophils/100 WBC (Bld) 54.5 % 47-70 [facility] Potassium [Moles/Vol] 3.9 mmol/L 3.5-5.1 [facility] Comment on above: Moderate Hemolysis, Result may be falsely increased. Sodium [Moles/Vol] 134 mmol/L 136-145 [facility] WBC (Bld) [#/Vol] 5.6 10*3/uL 4.4-11.0 [facility] Bilirubin Test strip Ql (U)O rdered By: Willie Kumar on 11-25-2023 Bilirubin Ql (U) Negative Negative [facility] Blood dallas cells detection b y light microscopyOrdered By: Willie Kumar on 11-25-2023 [place] cells LM Ql (Bld) SCAN CRITERIA MET [facility] Blood erythrocytes count (nu mber/volume)Ordered By: Willie Kumar on 11-25-2023 RBC (Bld) [#/Vol] 4.68 10*6/uL 4.6-6.2 [facility] Blood hemoglobin measurement (mass/volume)Ordered By: Willie Kumar on 11-25-2023 Hemoglobin (Bld) [Mass/Vol] 15.8 g/dL 13.0-16.5 [facility] Blood lymphocytes/100 leukoc ytesOrdered By: Willie Kumar on 11-25-2023 Lymphocytes/100 WBC (Bld) 31.8 % 19-41 [facility] Blood monocytes/100 leukocyt esOrdered By: Willie Kumar on 11-25-2023 Monocytes/100 WBC (Bld) 9.7 % 0-10 [facility] Blood platelet adequacy dete ction by light microscopyOrdered By: Willie Kumar on 11-25-2023 Platelets LM Ql (Bld) ADEQUATE ADEQ [facility] Blood platelet mean volumeOr dered By: Willie Kumar on 11-25-2023 Platelet mean volume (Bld) [Entitic vol] 11.3 fL 6.2-12.0 [facility] Determination of erythrocyte mean corpuscular volume (MCV)Ordered By: Willie Kumar on 11-25-2023 MCV (RBC) [Entitic vol] 88.0 fL 80-94 [facility] Glucose Glucometer (BldC) [M ass/Vol]Ordered By: Willie Kumar on 11-25-2023 Glucose [Mass/Vol] 322 mg/dL 74-106 [facility] Comment on above: MANAGEMENT OF PATIEN T CARE PER NURSING PROTOCOL Hematocrit Auto (Bld) [Volum e fraction]Ordered By: Willie Kumar on 11-25-2023 Hematocrit (Bld) [Volume fraction] 41.2 % 40-54 [facility] Ketones Test strip Ql (U)Ord ered By: Willie Kumar on 11-25-2023 Ketones Ql (U) 5 mg/dl Negative [facility] Laboratory - Chemistry and C hemistry - challengeOrdered By: Willie Kumar on 11-25-2023 CO2 [Moles/Vol] 19.0 mmol/L 21.0-32.0 [facility] Urea nitrogen/Creatinine [Mass ratio] 8.7 mg/mg 10-20 [facility] Laboratory - Hematology and Cell countsOrdered By: Willie Kumar on 11-25-2023 Anisocytosis Ql (Bld) RARE [facility] Erythrocyte distribution width (RBC) [Entitic vol] 39.6 fL 35.1-43.9 [facility] Erythrocyte distribution width (RBC) [Ratio] 12.3 % 11.6-14.6 [facility] Immature granulocytes/100 WBC (Bld) 1.300 % 0.0-0.9 [facility] Comment on above: IG% - Immature Granu locytes (promyelocytes, myelocytes and metamyelocytes) > 1% indicates that a LEFT SHIFT is Present. MCH (RBC) [Entitic mass] 33.8 pg 27.0-32.0 [facility] Nucleated RBC/100 WBC (Bld) [Ratio] 0 % 0-5 [facility] MCHC Auto (RBC) [Mass/Vol]Or dered By: Willie Kumar on 11-25-2023 MCHC (RBC) [Mass/Vol] 38.3 g/dL 32-36 [facility] Mucus LM Ql (Urine sed)Order ed By: Willie Kumar on 11-25-2023 Mucus Ql (Urine sed) 0 SEEN /hpf [facility] Nitrite Test strip Ql (U)Ord ered By: Willie Kumar on 11-25-2023 Nitrite Ql (U) Negative Negative [facility] No Panel InformationOrdered By: Willie Kumar on 11-25-2023 Estimated Creatinine Clearance Calc 65.93 ml/min [facility] Estimated GFR (MDRD) Amer 69 mL/min >60 [facility] Comment on above: GFR Calc Estimated GFR (MDRD) Non-Af Amer 57 mL/min >60 [facility] Comment on above: Non- GFR Calc Platelets bldOrdered By: Dean Kumar on 11-25-2023 Platelets (Bld) [#/Vol] 164 10*3/uL 150-450 [facility] Protein Test strip Ql (U)Ord ered By: Willie Kumar on 11-25-2023 Protein Ql (U) Negative Negative [facility] RBC morphologyOrdered By: Carlos Enrique Kumar on 11-25-2023 RBC morphology finding Nom (Bld) N CHROM NORMAL NORM C&C [facility] Serum or plasma calcium topher urement (mass/volume)Ordered By: Willie Kumar on 11-25-2023 Calcium [Mass/Vol] 7.6 mg/dL 8.5-10.1 [facility] Comment on above: Moderate Lipemia, Re sult may be falsely decreased. Serum or plasma creatinine m easurement (mass/volume)Ordered By: Willie Kumar on 11-25-2023 Creatinine [Mass/Vol] 1.38 mg/dL 0.70-1.30 [facility] Comment on above: The validity of the calculated GFR & GFRAA in patients over 70 years has not been determined. Clinical correlation is essential. Serum or plasma urea nitroge n measurement (mass/volume)Ordered By: Willie Kumar on 11-25-2023 Urea nitrogen [Mass/Vol] 12 mg/dL 7-18 [facility] Squamous epithelial cells de tection in urine sediment by light microscopyOrdered By: Willie Kumar on 11-25-2023 Epithelial cells.squamous LM Ql (Urine sed) 0 SEEN /hpf 0-5 [facility] Thin prep Papanicolaou smear with manual screeningOrdered By: Willie Kumar on 11-25-2023 Thin prep Papanicolaou smear with manual screening 15 5-15 [facility] Urine blood detectionOrdered By: Willie Kumar on 11-25-2023 RBC Ql (U) Negative Negative [facility] RBC Ql (U) 0 SEEN /hpf 0-5 [facility] Urine clarityOrdered By: Dean Kumar on 11-25-2023 Clarity (U) Clear Clear [facility] Urine color determinationOrd ered By: Willie Kumar on 11-25-2023 Color (U) Yellow Yellow [facility] Urine glucose detectionOrder ed By: Willie Kumar on 11-25-2023 Glucose Ql (U) 1000 mg/dl Normal [facility] Urine leukocyte esterase det ection by dipstickOrdered By: Willie Kumar on 11-25-2023 Leukocyte esterase Test strip Ql (U) Negative Negative [facility] Urine pHOrdered By: Willie Kumar on 11-25-2023 pH (U) 6.0 [pH] 5.0 - 8.0 [facility] Urine sediment bacteria coun t by microscopy (number/high power field)Ordered By: Willie Kumar on 11-25-2023 Bacteria LM.HPF (Urine sed) [#/Area] 0 /[HPF] None Seen [facility] Urine specific gravity measu rementOrdered By: Willie Kumar on 11-25-2023 Specific gravity (U) [Rel density] 1.010 1.002-1.030 [facility] Urobilinogen Auto test strip Ql (U)Ordered By: Willie Kumar on 11-25-2023 Urobilinogen Ql (U) Normal mg/dl Normal [facility] Absolute lymphocyte countOrd ered By: Dr. Bishop on 01-30-2023 Lymphocytes Auto (Unsp spec) [#/Vol] 1.67 10*3/uL 0.83-4.51 [facility] Basophil percentageOrdered B y: Dr. Bishop on 01-30-2023 Basophils/100 WBC (Bld) 0.5 % 0-1 [facility] Bilirubin [Mass/Vol] 0.90 mg/dL 0.20-1.00 [facility] Comment on above: For patients on eltr ombopag therapy, use of Dimension [place] TBIL is not recommended. Chloride [Moles/Vol] 104 mmol/L 98-107 [facility] Cholesterol [Mass/Vol] 132 mg/dL <200 [facility] Comment on above: <200 mg/dL Desirable 200-240 mg/dL Borderline >240 mg/dL High Risk Eosinophils/100 WBC (Bld) 3.1 % 0-5 [facility] Glucose [Mass/Vol] 183 mg/dL 74-106 [facility] Comment on above: Fasting Glucose resu lt greater than or equal to 126 mg/dL suggests DIABETES MELLITUS per A.D.A. criteria. Neutrophils (Bld) [#/Vol] 3.4 10*3/uL 2.0-7.7 [facility] Neutrophils/100 WBC (Bld) 56.7 % 47-70 [facility] Potassium [Moles/Vol] 3.8 mmol/L 3.5-5.1 [facility] Protein [Mass/Vol] 7.1 g/dL 6.4-8.2 [facility] Sodium [Moles/Vol] 140 mmol/L 136-145 [facility] Triglyceride [Mass/Vol] 144 mg/dL <199 [facility] Comment on above: The drugs N-Acetylcy steine and Metamizole may falsely depress this assay.Serum Triglycerides Reference Interval Normal <150 mg/dL Borderline high 150 - 199 mg/dL High 200 - 499 mg/dL Very High > or = 500 mg/dL WBC (Bld) [#/Vol] 5.9 10*3/uL 4.4-11.0 [facility] Bilirubin Test strip Ql (U)O rdered By: Dr. Bishop on 01-30-2023 Bilirubin Ql (U) Negative Negative [facility] Blood erythrocytes count (nu mber/volume)Ordered By: Dr. Bishop on 01-30-2023 RBC (Bld) [#/Vol] 5.02 10*6/uL 4.6-6.2 [facility] Blood hemoglobin measurement (mass/volume)Ordered By: Dr. Bishop on 01-30-2023 Hemoglobin (Bld) [Mass/Vol] 16.3 g/dL 13.0-16.5 [facility] Blood lymphocytes/100 leukoc ytesOrdered By: Dr. Bishop on 01-30-2023 Lymphocytes/100 WBC (Bld) 28.3 % 19-41 [facility] Blood monocytes/100 leukocyt esOrdered By: Dr. Bishop on 01-30-2023 Monocytes/100 WBC (Bld) 11.2 % 0-10 [facility] Blood platelet mean volumeOr dered By: Dr. Bishop on 01-30-2023 Platelet mean volume (Bld) [Entitic vol] 10.8 fL 6.2-12.0 [facility] Determination of erythrocyte mean corpuscular volume (MCV)Ordered By: Dr. Bishop on 01-30-2023 MCV (RBC) [Entitic vol] 89.4 fL 80-94 [facility] Erythrocyte sedimentation ra teOrdered By: Dr. Bishop on 01-30-2023 ESR (Bld) [Velocity] 8 mm/h 0-20 [facility] Hematocrit Auto (Bld) [Volum e fraction]Ordered By: Dr. Bishop on 01-30-2023 Hematocrit (Bld) [Volume fraction] 44.9 % 40-54 [facility] Ketones Test strip Ql (U)Ord ered By: Dr. Bishop on 01-30-2023 Ketones Ql (U) 5 mg/dl Negative [facility] Laboratory - Chemistry and C hemistry - challengeOrdered By: Dr. Bishop on 01-30-2023 ALP [Catalytic activity/Vol] 94 U/L 45-117 [facility] ALT [Catalytic activity/Vol] 47 U/L 16-61 [facility] CK [Catalytic activity/Vol] 194 U/L 39-308 [facility] CO2 [Moles/Vol] 27.0 mmol/L 21.0-32.0 [facility] Globulin (S) [Mass/Vol] 3.3 g/dL 2.2-4.2 [facility] Urea nitrogen/Creatinine [Mass ratio] 16.6 mg/mg 10-20 [facility] Laboratory - Hematology and Cell countsOrdered By: Dr. Bishop on 01-30-2023 Erythrocyte distribution width (RBC) [Entitic vol] 40.7 fL 35.1-43.9 [facility] Erythrocyte distribution width (RBC) [Ratio] 12.5 % 11.6-14.6 [facility] Immature granulocytes/100 WBC (Bld) 0.200 % 0.0-0.9 [facility] Comment on above: IG% - Immature Granu locytes (promyelocytes, myelocytes and metamyelocytes) > 1% indicates that a LEFT SHIFT is Present. MCH (RBC) [Entitic mass] 32.5 pg 27.0-32.0 [facility] Nucleated RBC/100 WBC (Bld) [Ratio] 0 % 0-5 [facility] MCHC Auto (RBC) [Mass/Vol]Or dered By: Dr. Bishop on 01-30-2023 MCHC (RBC) [Mass/Vol] 36.3 g/dL 32-36 [facility] Nitrite Test strip Ql (U)Ord ered By: Dr. Bishop on 01-30-2023 Nitrite Ql (U) Positive Negative [facility] No Panel InformationOrdered By: Dr. Bishop on 01-30-2023 Estimated GFR (MDRD) Amer 105 mL/min >60 [facility] Comment on above: GFR Calc Estimated GFR (MDRD) Non-Af Amer 87 mL/min >60 [facility] Comment on above: Non- GFR Calc Prostate Specific Antigen Screen 0.61 ng/mL 0.00-4.00 [facility] Comment on above: This test was perfor med using the TPSA assay method for [employer] chemistry system. Values obtained with differentassay methods cannot be used interchangably.When changing PSA assays in the course of monitoring apatient, additional sequential testing should be carriedout to confirm baseline values. Urine Microalbumin/Creatinine Ratio 9.4 mg/g CRE <30 [facility] Platelets bldOrdered By: Dr. Bishop on 01-30-2023 Platelets (Bld) [#/Vol] 200 10*3/uL 150-450 [facility] Protein Test strip Ql (U)Ord ered By: Dr. Bishop on 01-30-2023 Protein Ql (U) 30 mg/dl Negative [facility] Serum or plasma C reactive p rotein measurement (mass/volume)Ordered By: Dr. Bishop on 01-30-2023 CRP [Mass/Vol] mg/L 0.0-3.0 [facility] Comment on above: C-Reactive Protein ( CRP) provides useful information for thediagnosis, therapy and monitoring of inflammatory processesand associated diseases. For the evaluation of Relative Riskfor Cardiovascular Disease, a High Sensitivity CRP (HSCRP)should be ordered. Serum or plasma albumin topher urement (mass/volume)Ordered By: Dr. Bishop on 01-30-2023 Albumin [Mass/Vol] 3.8 g/dL 3.2-5.0 [facility] Serum or plasma albumin/glob ulin mass ratioOrdered By: Dr. Bishop on 01-30-2023 Albumin/Globulin [Mass ratio] 1.2 {ratio} 0.9-2.4 [facility] Serum or plasma calcium topher urement (mass/volume)Ordered By: Dr. Bishop on 01-30-2023 Calcium [Mass/Vol] 8.8 mg/dL 8.5-10.1 [facility] Serum or plasma cholesterol in HDL measurement (mass/volume)Ordered By: Dr. Bishop on 01-30-2023 Cholesterol in HDL [Mass/Vol] 31 mg/dL >40 [facility] Comment on above: The drugs N-Acetylcy steine and Metamizole may falsely depress this assay. Reference Range HDL <40 mg/dL Low HDL Cholesterol HDL >or= 60 mg/dL High HDL Cholesterol Serum or plasma cholesterol in VLDL measurement (mass/volume)Ordered By: Dr. Bishop on 01-30-2023 Cholesterol in VLDL [Mass/Vol] 29 mg/dL 5-40 [facility] Serum or plasma creatinine m easurement (mass/volume)Ordered By: Dr. Bishop on 01-30-2023 Creatinine [Mass/Vol] 0.97 mg/dL 0.70-1.30 [facility] Comment on above: The validity of the calculated GFR & GFRAA in patients over 70 years has not been determined. Clinical correlation is essential. Serum or plasma low density lipoprotein (LDL) cholesterol measurement (mass/volume)Ordered By: Dr. Bishop on 01-30-2023 Cholesterol in LDL [Mass/Vol] 72 mg/dL 0-130 [facility] Serum or plasma urea nitroge n measurement (mass/volume)Ordered By: Dr. Bishop on 01-30-2023 Urea nitrogen [Mass/Vol] 16 mg/dL 7-18 [facility] Thin prep Papanicolaou smear with manual screeningOrdered By: Dr. Bishop on 01-30-2023 Thin prep Papanicolaou smear with manual screening 41 U/L 15-37 [facility] Thin prep Papanicolaou smear with manual screening 9 5-15 [facility] Thin prep Papanicolaou smear with manual screening 20.9 mg/L NO RANGE EST. [facility] Urine blood detectionOrdered By: Dr. Bishop on 01-30-2023 RBC Ql (U) Negative Negative [facility] Urine clarityOrdered By: Dr. Bishop on 01-30-2023 Clarity (U) Clear Clear [facility] Urine color determinationOrd ered By: Dr. Bishop on 01-30-2023 Color (U) SEE COMMENT BELOW Yellow [facility] Comment on above: Visual Urine Color: PINK Urine creatinine measurement (mass/volume)Ordered By: Dr. Bishop on 01-30-2023 Creatinine (U) [Mass/Vol] 223.00 mg/dL NO RANGE EST. [facility] Urine glucose detectionOrder ed By: Dr. Bishop on 01-30-2023 Glucose Ql (U) 50 mg/dl Normal [facility] Urine leukocyte esterase det ection by dipstickOrdered By: Dr. Bishop on 01-30-2023 Leukocyte esterase Test strip Ql (U) 25 /ul Negative [facility] Urine pHOrdered By: Dr. Gary beltran on 01-30-2023 pH (U) 5.0 [pH] 5.0 - 8.0 [facility] Urine specific gravity measu rementOrdered By: Dr. Bishop on 01-30-2023 Specific gravity (U) [Rel density] 1.025 1.002-1.030 [facility] Urobilinogen Auto test strip Ql (U)Ordered By: Dr. Bishop on 01-30-2023 Urobilinogen Ql (U) Normal mg/dl Normal [facility] Whole blood hemoglobin A1c/t otal hemoglobin ratio (mass fraction)Ordered By: Dr. Bishop on 01-30-2023 HbA1c (Bld) [Mass fraction] 6.4 % 3.8-5.6 [facility] Comment on above: Normal < 5.7 % Predi abetic 5.7 - 6.4 % Diabetic >or= 6.5 % Please note range changes. Absolute lymphocyte counton 05-02-2022 Lymphocytes Auto (Unsp spec) [#/Vol] 1.82 10*3/uL 0.83-4.51 [facility] Work Phone: Basophil percentageon 2021 Basophils/100 WBC (Bld) 0.4 % 0-1 [facility] Work Phone: Chloride [Moles/Vol] 106 mmol/L 98-107 [facility] Work Phone: Eosinophils/100 WBC (Bld) 2.2 % 0-5 [facility] Work Phone: Glucose [Mass/Vol] 190 mg/dL 74-106 [facility] Work Phone: Comment on above: Fasting Glucose resu lt greater than or equal to 126 mg/dL suggests DIABETES MELLITUS per A.D.A. criteria. Neutrophils (Bld) [#/Vol] 4.1 10*3/uL 2.0-7.7 [facility] Work Phone: Neutrophils/100 WBC (Bld) 60.7 % 47-70 [facility] Work Phone: [phone] Potassium [Moles/Vol] 3.6 mmol/L 3.5-5.1 [facility] Work Phone: Comment on above: Slight Hemolysis, Re sult may be falsely increased. Sodium [Moles/Vol] 139 mmol/L 136-145 [facility] Work Phone: [phone] WBC (Bld) [#/Vol] 6.8 10*3/uL 4.4-11.0 [facility] Work Phone: Blood erythrocytes count (nu mber/volume)on 05-02-2022 RBC (Bld) [#/Vol] 5.12 10*6/uL 4.6-6.2 [facility] Work Phone: [phone] Blood hemoglobin measurement (mass/volume)on 05-02-2022 Hemoglobin (Bld) [Mass/Vol] 16.3 g/dL 13.0-16.5 [facility] Work Phone: Blood lymphocytes/100 leukoc yteson 05-02-2022 Lymphocytes/100 WBC (Bld) 26.7 % 19-41 [facility] Work Phone: [phone] Blood monocytes/100 leukocyt eson 05-02-2022 Monocytes/100 WBC (Bld) 9.4 % 0-10 [facility] Work Phone: Blood platelet mean volumeon 05-02-2022 Platelet mean volume (Bld) [Entitic vol] 12.2 fL 6.2-12.0 [facility] Work Phone: Determination of erythrocyte mean corpuscular volume (MCV)on 05-02-2022 MCV (RBC) [Entitic vol] 88.7 fL 80-94 [facility] Work Phone: Hematocrit Auto (Bld) [Volum e fraction]on 05-02-2022 Hematocrit (Bld) [Volume fraction] 45.4 % 40-54 [facility] Work Phone: Laboratory - Chemistry and C hemistry - challengeon 05-02-2022 CO2 [Moles/Vol] 27.0 mmol/L 21.0-32.0 [facility] Work Phone: Urea nitrogen/Creatinine [Mass ratio] 13.2 mg/mg 10-20 [facility] Work Phone: Laboratory - Hematology and Cell countson 05-02-2022 Erythrocyte distribution width (RBC) [Entitic vol] 41.3 fL 35.1-43.9 [facility] Work Phone: Erythrocyte distribution width (RBC) [Ratio] 12.7 % 11.6-14.6 [facility] Work Phone: Immature granulocytes/100 WBC (Bld) 0.600 % 0.0-0.9 [facility] Work Phone: Comment on above: IG% - Immature Granu locytes (promyelocytes, myelocytes and metamyelocytes) > 1% indicates that a LEFT SHIFT is Present. MCH (RBC) [Entitic mass] 31.8 pg 27.0-32.0 [facility] Work Phone: Nucleated RBC/100 WBC (Bld) [Ratio] 0 % 0-5 [facility] Work Phone: MCHC Auto (RBC) [Mass/Vol]on 05-02-2022 MCHC (RBC) [Mass/Vol] 35.9 g/dL 32-36 [facility] Work Phone: No Panel Informationon 06-03 -2022 Estimated GFR (MDRD) Amer 94 mL/min >60 [facility] Work Phone: Comment on above: GFR Calc Estimated GFR (MDRD) Non-Af Amer 78 mL/min >60 [facility] Work Phone: Comment on above: Non- GFR Calc Platelets bldon 05-02-2022 Platelets (Bld) [#/Vol] 220 10*3/uL 150-450 [facility] Work Phone: Serum or plasma calcium topher urement (mass/volume)on 05-02-2022 Calcium [Mass/Vol] 9.3 mg/dL 8.5-10.1 [facility] Work Phone: Serum or plasma creatinine m easurement (mass/volume)on 05-02-2022 Creatinine [Mass/Vol] 1.06 mg/dL 0.70-1.30 [facility] Work Phone: Comment on above: The validity of the calculated GFR & GFRAA in patients over 70 years has not been determined. Clinical correlation is essential. Serum or plasma urea nitroge n measurement (mass/volume)on 05-02-2022 Urea nitrogen [Mass/Vol] 14 mg/dL 7-18 [facility] Work Phone: Thin prep Papanicolaou smear with manual screeningon 05-02-2022 Thin prep Papanicolaou smear with manual screening 6 5-15 [facility] Work Phone: PROGRESSon 08-23-2018 Protein mass conc HNO ID: [id number]: Jessica Fabio CmaService: (none)Author Type: (none)Type: Progress NotesFiled: 08/23/2018 2:13 PMNote Text:I called Cinthya and he's not interested in making an appointment at thistime. I explained to him the importance of making an appointment andseeing his pcp once a year, but he still declines an appointment. I alsotold him that if he chooses to come back he'll have to re-establishbecause it's been so long. He agrees, and declines appointment at thistime. There is lab work ordered I told him he could come in to get donewhenever, if he'd like. Normal [facility] Protein mass conc HNO ID: [id number] Author: Jessica Mccarthy [facility] Service: (none) Author Type: (none) Type: Progress Notes Filed: 08/23/2018 2:13 PM Note Text: Left message for patient to return call #[phone] Normal [facility] CNPTOUTREACHon 08-18-2018 CNPTOUTREA Patient Outreach (INTMWS) CINTHYA YANEZ ([id number]) 1970 M CHTDate Time Provider Department08/18/18 JESSICA MCCARTHY ([facility] INTMWS During your visit today, we recorded the following information about you:Jessica Mccarthy [facility] 08/23/2018 2:13 PM Signed PHMA TEAMLET DOCUMENTATIONProvider Action/FYI:Please file labsPSR Action/FYI:Order Labspcp clarificationDiscuss HMSchedule Physical w/labs priorTeamlet has identified patient by name and date of .Team: Dr. Comfort archuleta? Last Office Visit:Visit date not found? Next Office Visit: Visit date not found? Last BP/Labs:Blood Pressure:Last 3 Encounter BP Readings: Date: BP: 03/15/2015 124/82 03/07/2015 106/82 02/26/2015 133/94Lipids:Cholesterol , Total (mg/dL)Date Value02/07/2015 179 HDL Cholesterol (mg/dL)Date Value02/07/2015 14 LDL Cholesterol (mg/dL)Date Value02/07/2015 Unable to calculate due to increased Triglycerides. See LDL-Chol,Direct.-------- --Triglyceride (mg/dL)Date Value02/28/2015 2419902/07/2015 1130 HGB A1C:Lab ResultsComponent Value [id number] 5.1 02/07/2015TSH:TSH (uU/mL)Date Value05/21/2015 2.86769 1.070 )Care Gap: HypertriglycereidemiaIFG Plan:? Confirm PCP / Status - unknown? Type of appointment needed: Physical next available? Consultation Appointments: n/aLabs, HM and Immunization:Health Maintenance Due:DIABETES SCREEN due on 05/21/2018 - order pendingINFLUENZA(1) due on 07/31/2018Jess[facility] Mccarthy [facility] 08/23/2018 2:13 PM SignedMyChart message sent.Jessica Mccarthy [facility] 08/23/2018 2:13 PM SignedLeft message for patient to return call #[phone] Mccarthy [facility] 08/23/2018 2:13 PM SignedI called Cinthya and he's not interested in making an appointment at this time.I explained to him the importance of making an appointment and seeing his pcponce a year, but he still declines an appointment. I also told him that if hechooses to come back he'll have to re-establish because it's been so long. Heagrees, and declines appointment at this time. There is lab work ordered I toldhim he could come in to get done whenever, if he'd like.Allergies As of Date: 08/18/2018(No Known Allergies)Date Reviewed: 03/15/2015Reviewed by: Carol Wasserman LPN - Fully AssessedReason for Visit: [facility]/Care Gap Outreach [3605]Primary Visit Diagnosis:Encounter for screening for diabetes mellitus [Z13.1] Other Visit Diagnoses:Screening, lipid [Z13.220] Impaired fasting glucose [R73.01] Chronic hepatitis C without hepatic coma (HCC) [B18.2]Order(s):LIPID PANEL BASIC [SQLIPB] Order #: [id number] FUTURE HGB A1C [IWEYN2H] Order #: [id number] FUTURE COMP METABOLIC PANEL [SQCMP] Order #: [id number] FUTUREPrescriptions as of 08/18/2018 Sig: FENOFIBRATE 160 MG TABLET Take 1 tablet by mouth once d* LEDIPASVIR 90 MG-SOFOSBUVIR 4* Take 1 tablet by mouth once d*Problem List As Of Date 08/18/2018 Noted Resolved Hypertriglyceridemia [E78.1] INVALID FOR* Impaired fasting glucose [R73.01] INVALID FOR* Hepatitis C, chronic (HCC) [B18.2] INVALID FOR* Status:Closed by JESSICA MCCARTHY CMA on 08/23/18 [facility] PROGRESSon 08-18-2018 Protein mass conc HNO ID: [id number] Author: Jessica Mccarthy Cma Service: (none) Author Type: (none) Type: Progress Notes Filed: 08/23/2018 2:13 PM Note Text: WeGathert message sent. Normal [facility] Protein mass conc HNO ID: [id number]: Jessica Mccarthy CmaService: (none)Author Type: (none)Type: Progress NotesFiled: 08/23/2018 2:13 PMNote Text: PHMA TEAMLET DOCUMENTATIONProvider Action/FYI:Please file labsPSR Action/FYI:Order Labspcp clarificationDiscuss HMSchedule Physical w/labs priorTeamlet has identified patient by name and date of .Team: Dr. Comfort archuleta? Last Office Visit:Visit date not found? Next Office Visit: Visit date not found? Last BP/Labs:Blood Pressure:Last 3 Encounter BP Readings: Date: BP: 03/15/2015 124/82 03/07/2015 106/82 02/26/2015 133/94Lipids:Cholesterol , Total (mg/dL)Date Value02/07/2015 179 HDL Cholesterol (mg/dL)Date Value02/07/2015 14 LDL Cholesterol (mg/dL)Date Value02/07/2015 Unable to calculate due to increased Triglycerides. SeeLDL-Chol, Direct. Triglyc eride (mg/dL)Date Value02/28/2015 9184402/07/2015 1130 HGB A1C:Lab ResultsComponent Value [id number] 5.1 02/07/2015TSH:TSH (uU/mL)Date Value05/21/2015 2.6746002/28/2015 1.070 )Care Gap: HypertriglycereidemiaIFG Plan:? Confirm PCP / Status - unknown? Type of appointment needed: Physical next available? Consultation Appointments: n/aLabs, HM and Immunization:Health Maintenance Due:DIABETES SCREEN due on 05/21/2018 - order pendingINFLUENZA(1) due on 07/31/2018Miranda [place] [employer] Normal [facility] Vital Signs Date Time Vital Sign Value Performing Clinician Yasemin covarrubias 11-26-2023 00:50-0500 Diastolic blood pressure 98 mm[Hg] [facility] 11-26-2023 00:50-0500 Heart rate 79 /min [facility] 11-26-2023 00:50-0500 Respiratory rate 18 /min [facility] 11-26-2023 00:50-0500 SaO2% (BldA) [Mass fraction] 97 % [facility] 11-26-2023 00:50-0500 Systolic blood pressure 136 mm[Hg] [facility] 11-25-2023 20:00-0500 Body height 180.34 cm [facility] 11-25-2023 20:00-0500 Body mass index (BMI) [Ratio] 27.3 kg/m2 [facility] 11-25-2023 20:00-0500 Body temperature 97.6 [degF] [facility] 11-25-2023 20:00-0500 Body weight 88.9 kg [facility] Encounters Encounter Date Encounter Type Care Provider Facility Start: 05-16-2025 ambulatory Arik Hazel lity:[facility] Start: 04-10-2025 End: 04-10-2025 ambulatory Arik [place] Facility:[facility] Start: 02-04-2024 Non-patient / Non-visit MD Adan Herring Work Phone: [facility] Start: 02-04-2024 End: 02-04-2024 ambulatory MD Adan Herring Work Phone: [facility] Work Phone: Start: 02-04-2024 End: 02-04-2024 Patient encounter procedure MD Adan Herring Work Phone: [facility] Work Phone: Start: 11-25-2023 End: 11-26-2023 Emergency department patient visit [facility] Work Phone: Start: 01-30-2023 End: 01-30-2023 ambulatory [facility] Work Phone: Start: 01-30-2023 End: 01-30-2023 Patient encounter procedure [facility]Labor[facility], Brandy Grimes [facility] Start: 05-02-2022 End: 05-02-2022 Patient encounter procedure [facility], Kassie Plan of Treatment Date Care Activity Detail Author Start: 11-26-2023 [facility] Antibody to lupus La protein measurement [facility] Antibody to SS-A measurement [facility] Centromere protein B Ab [Units/volume] in Serum [facility] Chromatin Ab [Units/volume] in Serum or Plasma [facility] DNA double strand Ab [Units/volume] in Serum [facility] Martha-1 extractable nuclear Ab [Units/volume] in Serum [facility] Nuclear Ab [Presence ] in Serum [facility] Patient Education ED Diabetic Hyperglycem ia [facility] Work Phone: Patient referral [facility] Work Phone: SCL-70 extractable nuclear Ab [Units/volume] in Serum by Immunoassay [facility] Palomares extractable nuclear Ab [Presence] in Serum [facility] Payers Date Payer Category Payer Self-pay [id number] Unknown [id number] Private Health Insurance [facility] [id number] [id number] Unknown [id number] 3 Unknown R [id number] [id number] Unknown [id number] Unknown [id number] Social History Date Type Detail Facility Start: 12-30-2021 End: 11-25-2023 Tobacco smoking status NHIS Unknown if ever smoked [facility] Start: 01-28-2021 [facility] Start: 1970 Sex Assigned At Male [facility] Medical Equipment Procedure Code Equipment Code Equipment Origin al Text Equipment Identifier Dates Bunionectomy 3.5mm Low Profil e Screws, Lock FDA Start: 05-20-2019 Bunionectomy 3.5mm Low Profil e Screws, Lock FDA Start: 05-20-2019 Bunionectomy 3.5mm Low Profil e Screws, Lock FDA Start: 05-20-2019 Bunionectomy 3.5mm Low Profil e Screws, Lock FDA Start: 05-20-2019 Bunionectomy 4mm Low Profile Screws FDA Start: 05-20-2019 Bunionectomy DYNANITE NITINOL STAPLE FDA Start: 05-20-2019 Bunionectomy Plantar Lapidus Plate Right FDA Start: 05-20-2019 Bunionectomy 3.5mm Low Profil e Screws, Lock FDA Start: 05-20-2019 Bunionectomy 3.5mm Low Profil e Screws, Lock FDA Start: 05-20-2019 Bunionectomy 3.5mm Low Profil e Screws, Lock FDA Start: 05-20-2019 Bunionectomy 3.5mm Low Profil e Screws, Lock FDA Start: 05-20-2019 Bunionectomy 4mm Low Profile Screws FDA Start: 05-20-2019 Bunionectomy DYNANITE NITINOL STAPLE FDA Start: 05-20-2019 Bunionectomy Plantar Lapidus Plate Right FDA Start: 05-20-2019 Bunionectomy 3.5mm Low Profil e Screws, Lock FDA Start: 05-20-2019 Bunionectomy 3.5mm Low Profil e Screws, Lock FDA Start: 05-20-2019 Bunionectomy 3.5mm Low Profil e Screws, Lock FDA Start: 05-20-2019 Bunionectomy 3.5mm Low Profil e Screws, Lock FDA Start: 05-20-2019 Bunionectomy 4mm Low Profile Screws FDA Start: 05-20-2019 Bunionectomy DYNANITE NITINOL STAPLE FDA Start: 05-20-2019 Bunionectomy Plantar Lapidus Plate Right FDA Start: 05-20-2019 Bunionectomy 3.5mm Low Profil e Screws, Lock FDA Start: 05-20-2019 Bunionectomy 3.5mm Low Profil e Screws, Lock FDA Start: 05-20-2019 Bunionectomy 3.5mm Low Profil e Screws, Lock FDA Start: 05-20-2019 Bunionectomy 3.5mm Low Profil e Screws, Lock FDA Start: 05-20-2019 Bunionectomy 4mm Low Profile Screws FDA Start: 05-20-2019 Bunionectomy DYNANITE NITINOL STAPLE FDA Start: 05-20-2019 Bunionectomy Plantar Lapidus Plate Right FDA Start: 05-20-2019 Mental Status Date Assessment Result Facility 11-25-2023 Cognitive function Level Of Cons ciousness Awake;Alert;Appropriate;Follow s Commands [facility] Work Phone: Discharge summary 11-25-2023 Note Date & Type Note Facility 11-25-2023 Discharge summary Note Date/Time November 25, 2023 9:03pm [facility] Medical Records Department [address] [place] [address] Emergency Department Summary 11/25/23 MR#: [id number] Acct: [id number] Name: CINTHYA YANEZ Rep #:[id number] : 1970 53 From: Willie Kumar MD PCP: Dr. Garrison Bishop, DO Status:REG ER Location: ED HPI History of Present Illness Chief Complaint: Hyperglycemia Informant: patient Narrative Narrative: Patient has a history of type 2 diabetes and was on metformin 500 mg twice daily. About a year ago, his old PCP took him off of his medication because he was doing so well and his sugars were well-controlled. He states about a week ago he started feeling poorly having polydipsia and polyuria, lightheadedness, so he started checking his blood sugars only at that point, seen that they were in the 3-500s every time he checked it, so he started taking his metformin again. He is feeling no different and his blood sugars are still high, 521 an hour prior to evaluation. No recent illness or obvious reason for this that he can think of. [facility] Medical History Diabetes Hypertension Hypertension Home Medications fenofibrate nanocrystallized 145 mg tablet 145 mg PO DAILY 01/28/21 [History Last Taken Unknown] lisinopril 5 mg tablet 5 mg PO DAILY 01/28/21 [History Last Taken 02/01/21 04:30] metformin 500 mg tablet 1,000 mg (2 x 500 mg) PO BID 30 days #0 tabs 11/26/23 [Rx Last Taken Unknown] Allergy/AdvReac Type Severity Reaction Status Date / Time bee venom protein (honey bee) Allergy Rash Verified 11/25/23 20:02 Family History (Updated 08/16/21 @ 15:23 by Evelyn Becker RN) Other Diabetes Hypertension Social History Smoking Status: Current every day smoker tobacco type: smokeless tobacco ROS ROS ED Constitutional Constitutional ED: Reports malaise; Denies chills or fever(s) Eyes Eyes: Denies change in vision or diplopia ENT ENT ED: Denies rhinorrhea or sore throat Cardiovascular Cardiovascular: Reports lightheadedness; Denies chest pain, palpitations or syncope Respiratory/Chest Respiratory/Chest: Denies cough or dyspnea Gastrointestinal Gastrointestinal: Denies abdominal pain, diarrhea, nausea or vomiting Genitourinary Genitourinary ED: Reports urinary frequency; Denies dysuria or hematuria Musculoskeletal Musculoskeletal: Denies back pain or neck pain Integumentary Denies abscess or rash Neurologic Neurologic: Denies headache(s), paresthesias or weakness Psychiatric Psychiatric: Denies anxiety or suicidal thoughts Endocrine Endocrinology: Reports polydipsia and polyuria EXAM Physical Exam Const Vital Signs: 11/25/23 20:00 Temperature 97.6 F L Temperature Source Temporal Pulse Rate 101 H Respiratory Rate 18 Blood Pressure 192/106 H Blood Pressure Mean 134 Pulse Ox 100 Oxygen Delivery Method Room Air Positive well nourished and well developed General Appearance ED: well developed and NAD HEENT Reports moist mucous membranes normocephalic and atraumatic Eyes PERRL and EOMs intact bilaterally Neck full ROM and supple Resp normal respiratory effort and clear to auscultation bilaterally Cardio regular rate, regular rhythm and no murmurs GI non-tender and non-distended Auscultation: normoactive bowel sounds Palpation: soft Back/Spine no CVA tenderness General Back: other FROM Extremity normal to inspection General Extremety ED: Negative for edema, pulses abnormal or tenderness General Extremity: Negative for edema or pulses abnormal Neuro oriented x3, CN's II-XII intact bilaterally and no sensory deficits noted Sensorium / Orientation: awake and alert Motor Exam: strength 5/5 throughout Skin no rashes or lesions noted and no wounds MDM MDM MDM Narrative Medical decision making narrative: Labs are reviewed, his bicarb is low but his anion gap is within normal limits, creatinine is up a little from normal. Blood sugar almost 500, he was given insulin here and we brought that down to 322 after several hours after the insulin. He had 2 L of fluid and feels a lot better. His other symptoms are gone. Urinalysis shows no signs of infection and he does not have a leukocytosis or anemia. At this time he is more stable to be discharged from the ER. He is hypertensive and that should be rechecked as an outpatient, and Ican also tell him to safely double his metformin to 1000 mg twice daily until hefollows up. It is 11/26 and he states his insurance is changing for the new year and he must also change PCPs, I offered to write him a new prescription formetformin but he states he has plenty right now. I advised in the meantime until he can see a doctor to limit his sugar and carbohydrate intake. Lab Data Attestation: I reviewed the patient's lab results. Labs: Laboratory Results - last 24 hr 11/25/23 11/25/23 11/25/23 21:00 21:04 21:38 WBC 5.6 RBC 4.68 Hgb 15.8 Hct 41.2 MCV 88.0 MCH 33.8 H MCHC 38.3 H RDW Std Deviation 39.6 RDW Coeff of Chuy 12.3 Plt Count 164 MPV 11.3 Immature Gran % (Auto) 1.300 H Neut % (Auto) 54.5 Lymph % (Auto) 31.8 Dawes % (Auto) 9.7 Eos % (Auto) 2.2 Baso % (Auto) 0.5 Absolute Neuts (auto) 3.0 Absolute Lymphs (auto) 1.77 Nucleated RBC % 0 Platelet Estimate ADEQUATE RBC Morphology N CHROM Anisocytosis RARE [place] Cells SCAN CRITERIA MET Sodium 134 L Potassium 3.9 Chloride 100 Carbon Dioxide 19.0 L Anion Gap 15 BUN 12 Creatinine 1.38 H Estim Creat Clear Calc 65.93 Est GFR (MDRD) Af Amer 69 Est GFR (MDRD) Non-Af 57 L BUN/Creatinine Ratio 8.7 L Glucose 499 H* Calcium 7.6 L Urine Color Yellow Urine Clarity Clear Urine pH 6.0 Ur Specific Pollock 1.010 Urine Protein Negative Urine Glucose (UA) 1000 H Urine Ketones 5 H Urine Occult Blood Negative Urine Nitrite Negative Urine Bilirubin Negative Urine Urobilinogen Normal Ur Leukocyte Esterase Negative Urine RBC 0 SEEN Urine WBC 0 SEEN Ur Squamous Epith Cells 0 SEEN Urine Bacteria 0 SEEN Urine Mucus 0 SEEN POC Glucose 426 H 11/25/23 22:58 WBC RBC Hgb Hct MCV MCH MCHC RDW Std Deviation RDW Coeff of Chuy Plt Count MPV Immature Gran % (Auto) Neut % (Auto) Lymph % (Auto) Dawes % (Auto) Eos % (Auto) Baso % (Auto) Absolute Neuts (auto) Absolute Lymphs (auto) Nucleated RBC % Platelet Estimate RBC Morphology Anisocytosis [place] Cells Sodium Potassium Chloride Carbon Dioxide Anion Gap BUN Creatinine Estim Creat Clear Calc Est GFR (MDRD) Af Amer Est GFR (MDRD) Non-Af BUN/Creatinine Ratio Glucose Calcium Urine Color Urine Clarity Urine pH Ur Specific [place] Urine Protein Urine Glucose (UA) Urine Ketones Urine Occult Blood Urine Nitrite Urine Bilirubin Urine Urobilinogen Ur Leukocyte Esterase Urine RBC Urine WBC Ur Squamous Epith Cells Urine Bacteria Urine Mucus POC Glucose 322 H Discharge Plan Triage Chief Complaint: Hyperglycemia ED Provider: Willie Kumar Dx/Rx/DC Orders Clinical Impression: Hyperglycemia due to type 2 diabetes mellitus, Episode of hypertension, Mild dehydration Instructions: ED Diabetic Hyperglycemia Prescriptions: Continued lisinopril 5 MG tablet 5 mg PO DAILY fenofibrate nanocrystallized 145 MG tablet 145 mg PO DAILY Changed metformin 500 mg tablet 1,000 mg PO BID 30 Days Qty: 0 0RF Patient Comments: TAKE 1 TABLET BY MOUTH TWICE DAILY WITH FOOD Discontinued ibuprofen 200 MG capsule 200 mg PO PRN PRN (Reason: Pain 1-10 Or Fever) Primary Care Provider: Garrisno Bishop Referrals: Garrison Bishop, [Primary Care Provider] - As soon as possible Activity Restrictions/Additional Instructions: Avoid anti-inflammatory medications like ibuprofen or Aleve since your kidney numbers are a little abnormal and these can make them worse, you will need to follow-up so that you can have your kidney function rechecked to see if it is getting better or worse. Also need to follow-up to have your blood pressure rechecked since it was high today. Disposition Disposition: Home, Self Care What to do if you have Problems For any increased pain, shortness of breath, bleeding, nausea or vomiting, chestpain, or any unexpected problems, contact your Primary Care Provider. Call [facility] ([phone]) or report to the closest Emergency Room. Call 911 if necessary. 11/26/23 0023 <Electronically signed by Willie Kumar MD> Cosigner Signature (if applicable): CC: Dr. Garrison Bishop, ~ Signed [facility] Work Phone: Evaluation note Note Date & Type Note Facility Evaluation note No assessment information availa ble [facility] Work Phone: Hospital Discharge instructions Note Date & Type Note Facility Hospital Discharge instructions Additional Instructions Avoid anti-inflammatory medications like ibuprofen or Aleve since your kidney numbers are a little abnormal and these can make them worse, you will need to follow-up so that you can have your kidney function rechecked to see if it is getting better or worse. Also need to follow-up to have your blood pressure rechecked since it was high today. [facility] Work Phone: Summary Purpose Family History No Family History Records Found Relationship Condition Age at Onset Recorded Date/T grant Not Specified Diabetes mellitus Unknown Hypertension Unknown Advance Directives No Advanced Directives Records Found Advance Directive Response Recorded Date/ Time Living Will No December 30 4:25pm Power of Video Game Script Writer No December 30, 2021 4:25pm Advance Directive Response Recorded Date/ Time Living Will No December 30 3:25pm Power of Video Game Script Writer No December 30, 2021 3:25pm Advance Directive Response Recorded Date/ Time Living Will Yes November 25 023 9:07pm Power of Video Game Script Writer Yes November 25, 2023 9:07pm Name of Medical Power of Video Game Script Writer November 25, 2023 9:07pm Advance Directive Response Recorded Date/ Time Name of Medical Power of Video Game Script Writer November 25, 2023 10:07pm Living Will Yes November 25 023 10:07pm Power of Video Game Script Writer Yes November 25, 2023 10:07pm Chief Complaint and Reason for Visit Chief Complaint Hyperglycemia Chief Complaint Hyperglycemia CRAMP AND SPASM Additional Source Comments (unrecognized sect ion and content) No Status Records FoundNo Status Records Found INFORMATION SOURCE (unrecogn ized section and content) DATE CREATED AUTHOR 09/20/2018 [facility] DATE CREATED AUTHOR AUTHOR'S ORGANIZ ATION 05/14/2025 [facility] Goals (unrecognized section and content) Goals may be documented in a n alternate sectionGoals may be documented in an alternate sectionGoals may be documented in an alternate sectionGoals may be documented in an alternate section Care Teams (unrecognized sec tion and content) Team Status: Active Member Role Status Dates Dr. Malcom White MD Family Provider Active Dr. Garrison Bishop DO Primary Care Provider Active Team Status: Inactive Member Role Status Dates Dr. Garrison Bishop DO Primary Care Provider, Attendin g Provider Active Team Status: Inactive Member Role Status Dates Dr. Garrison Bishop DO Primary Care Provider Active Dr. Willie Kumar MD Emergency Provider Active Team Status: Active Member Role Status Dates Dr. Malcom White MD Family Provider Active Adan Herring MD Primary Care Provider Active Team Status: Active Member Role Status Dates Adan Herring MD Primary Care Provider, Referring Prov ider Active Dr. Fausto Tejeda MD Attending Provider Active Team Status: Inactive Member Role Status Dates Dr. Garrison Bishop DO Primary Care Provider Active Dr. Willie Kumar MD Attending Provider, Emergency Provider Active Team Status: Inactive Member Role Status Dates Adan Herring MD Primary Care Provide r, Attending Provider, Referring Provider Active FOR RECORDS PERTAINING TO PATIENTS WHO ARE OR HAVE BEEN ENROLLED IN A CHEMICAL DEPENDENCY/SUBSTANCEABUSE PROGRAM, SOME INFORMATION MAY BE OMITTED. This clinical summary was aggregated from multiple sources. Caution should be exercised in using it in the provision of clinical care. This summary normalizes information from multiple sources, and as a consequence, information in this document may materially change the coding, format and clinical context of patient data. In addition, data may be omitted in some cases. CLINICAL DECISIONS SHOULD BE BASED ON THE PRIMARY CLINICAL RECORDS. [facility] [employer] [facility]. provides no warranty or guarantee of the accuracy or completeness of information in this document.
--- NOTE | 2025-05-16 15:32 | PCM.POSTANE2 ---
Anesthesia Postop Eval I Sum Postop Eval Completion status Anesthesia document: Postop Eval 1 completed: Yes Anesthesia Postop Eval I Summary Anesthesia Postop Eval I Summary: Anesthesia Postop Eval I: Assessment Summary Airway patent Yes 05/16/25 10:20 [email or web address] Spontaneous unlabored Yes 05/16/25 10:20 [email or web address] respirations Mental status Asleep 05/16/25 10:20 [email or web address] nausea No 05/16/25 10:20 [email or web address] Vomiting No 05/16/25 10:20 [email or web address] Anesthesia Postop Eval I: Fluid Summary Crystalloid volume administer 500 05/16/25 10:20 [email or web address] (ml) Colloids volume administered ( ml) Blood Product volume administered (ml) Total IV fluid infused 500 05/16/25 10:20 [email or web address] Anesthesia Postop Eval I: Summary Notes Anesthesia Complication No 05/16/25 10:20 [email or web address] Anesthesia Complication Comment: Post-operative progress note Anesthesia: Postop Eval II Evaluation Mental status: Awake Pain Level: 0 nausea: No Vomiting: No Complications Anesthesia Complication: No
== END 2025-05-16 11:08 | disposition home or self-care (01) ==
LOC: EN 08:41 → AC 08:42
PROVIDERS: PCP Family Medicine; Referring Provider Family Medicine; Visit Provider Surgery
PROC: 0DJD8ZZ Inspection of Lower Intestinal Tract, Via Natural or Artificial Opening Endoscopic (ICD-10-PCS; CPT 45378; principal; 2025-05-16 09:25)
DX: K59.00 Constipation, unspecified (principal); E11.9 Type 2 diabetes mellitus without complications; Z87.891 Personal history of nicotine dependence; I10 Essential (primary) hypertension
CPT/HCPCS: 45378; 82962; J2405

== ENCOUNTER → 2025-10-11 | Outpatient (CLI) | payer OTHER, SELFPAY ==
--- NOTE | 2025-10-11 07:48 | EKG12_ITS ---
Test Reason : PREOP Blood Pressure : */* mmHG Vent. Rate : 66 BPM Atrial Rate : 66 BPM P-R Int : 120 ms QRS Dur : 88 ms QT Int : 420 ms P-R-T Axes : 9 35 51 degrees QTcB Int : 440 ms Normal sinus rhythm Normal ECG Confirmed by Jose M Soni ([id number]), restaurant expeditor VJ GARCIA ([id number]) on 10/11/2025 10:42:34 AM Referred By: Samir Garcia Confirmed By: Jose M Soni
--- OUTSIDE RECORDS SUMMARY | 2025-10-11 07:57 | XMS RPT_ITS | CCD ---
Author Organization [facility] Care Team Providers Care Android Platform Developer Name Role Phone MD Adan Herring Primary Care Provider MD Adan Herring Referring Provider Dr. Fausto Tejeda Attending Provider [phone] Nima ROSE, Adan Primary Care Provider [phone] Nima ROSE, Adan Referring Provider [phone] Miroslava ROSE, Dr. Elise Attending Provider Miroslava ROSE, Dr. Elise Other Provider Arik Colorado Consulting Unavailable Arik Colorado Attending Unavailable Nima, Adan Primary Care Unavailable Nima, Adan Referring Unavailable Nima, Adan Referring Unavailable Arik Colorado Attending Unavailable Nima, Chalon Primary Care Unavailable SpittleSamir Attending Unavailable SpittSamir sotomayor Referring Unavailable Nima, Chalon Primary Care Unavailable Nima, Chalon Referring Unavailable Arik Colorado Attending Unavailable Nima, Chalon Primary Care Unavailable Allergies Allergy Classification Reported Allergen(s) Allergy Type Date of Onset Reaction(s) Facility (5 sources) bee venom protein (honey bee) Allergy to substance 08-16-2021 Rash [facility] (1 source) bee venom protein (honey bee) Drug allergy (disorder) 05-16-2025 [facility] Repository Medications Current Medications Medication Drug Class(es) Dates Sig (Normalized) Sig (Original) c-pain cream (1 source) Start: 04-10-2025 c-pain cream A ctive 1 NMA TOPICAL April 10, 2025 12:00am metanx FC (1 source) Start: 04-10-2025 metanx FC Acti ve 1 NMA PO April 10, 2025 12:00am Completed/Discontinued Medications Medication Drug Class(es) Dates Sig (Normalized) Sig (Original) acetaminophen 325 mg / HYDROcodone bitartrate 5 mg oral tablet (5 sources) Opioid Agonist Start: 02-01-2021 End: 02-05-2021 Hydrocodone-Acetami nophen 1 TABLET tablet Discontinued 1 - 2 {tbl} PO EVERY 6 HOURS NEEDED as needed for Pain 23 03February 01, 2021 February 04, 2021 1:00am February 05, 2021 1:02am Start: 02-01-2021 End: 02-05-2021 take 1 tablet by mouth every six hours as needed Hydrocodone-Acetaminophen Discontinued 1 - 2 TABLET PO EVERY 6 HOURS NEEDED 23 03February 01, 2021 February 05, 2021 1:02am acetaminophen 325 mg / oxyCODONE hydrochloride 5 mg oral tablet (5 sources) Opioid Agonist Start: 05-20-2019 End: 05-28-2019 Oxycodone-Acetaminophen 1 TABLET tablet Discontinued 1 - 2 {tbl} PO EVERY 6 HOURS NEEDED as needed for Pain 32 4 May 20, 2019 May 23, 2019 12:00am May 28, 2019 12:08am Start: 05-20-2019 End: 05-28-2019 take 1 tablet by mouth every six hours as needed Oxycodone-Acetaminophen Discontinued 1 - 2 TABLET PO EVERY 6 HOURS NEEDED 32 4 May 20, 2019 May 28, 2019 12:08am fenofibrate 145 mg oral tablet (5 sources) Peroxisome Proliferator Receptor alpha Agonist Start: 01-28-2021 End: 04-10-2025 take 1 tablet by mouth once daily Fenofibrate Nanocrystallized 145 MG tablet Discontinued 145 mg PO DAILY January 28, 2021 1:00am April 10, 2025 2:01pm ibuprofen 200 mg oral capsule (5 sources) Nonsteroidal Anti-inflammatory Drug Start: 01-28-2021 End: 11-26-2023 Ibuprofen 200 MG capsule Discontinued 200 mg PO NEEDED as needed for Pain 1-10 Or Fever January 28, 2021 1:00am November 26, 2023 1:20am lisinopril 5 mg oral tablet (5 sources) Angiotensin Converting Enzyme Inhibitor Start: 01-28-2021 End: 04-10-2025 take 1 tablet by mouth once daily Lisinopril 5 MG tablet Discontinued 5 mg PO DAILY January 28, 2021 1:00am April 10, 2025 2:01pm metFORMIN hydrochloride 500 mg oral tablet (8 sources) Biguanide Start: 11-26-2023 End: 04-10-2025 take 2 tablets by mouth twice daily Metformin 500 mg tablet Discontinued 1000 mg PO TWICE A DAY 0 November 26, 2023 1:21am April 10, 2025 2:01pm Start: 11-26-2023 take 1000 mg by mout h twice daily Metformin Active 1000 MG PO TWICE A DAY 0 November 26, 2023 1:21am Start: 08-21-2021 End: 11-26-2023 take 1 tablet by mouth twice daily Metformin 500 mg tablet Discontinued 500 mg PO TWICE A DAY August 21, 2021 12:00am November 26, 2023 1:22am Problems Active Problems Problem Classification Problem Date Documented Da te Episodic/Chronic Diabetes mellitus with complications (3 sources) Hyperglycemia due to type 2 diabetes mellitus; Translations: [Type 2 diabetes mellitus with hyperglycemia] 11-26-2023 Chronic Diabetes mellitus without complication (10 sources) Diabetes mellitus; Translations: [Type 2 diabetes mellitus without complications] 08-20-2021 Chronic Essential hypertension (3 sources) Elevated blood pressure; Translations: [Essential (primary) hypertension] 11-26-2023 Chronic Fluid and electrolyte disorders (3 sources) Mild dehydration; Translations: [Dehydration] 11-26-2023 Episodic Immunizations and screening for infectious disease (5 sources) Contact with and (suspected) exposure to other viral communicable diseases; Translations: [Contact with or suspected exposure to other viral communicable disease] 08-16-2021 Episodic Nonspecific chest pain (5 sources) Chest pain; Translations: [Chest pain, unspecified] 05-20-2019 Episodic Other gastrointestinal disorders (2 sources) Constipation; Translations: [Constipation, unspecified] 04-10-2025 Episodic Other screening for suspected conditions (not mental disorders or infectious disease) (1 source) Patient encounter status; Translations: [Encounter for screening for malignant neoplasm of colon] 04-10-2025 Episodic Other upper respiratory disease (5 sources) Respiratory tract congestion; Translations: [Nasal congestion] 08-16-2021 Episodic Viral infection (5 sources) Disease caused by 2019-nCoV; Translations: [COVID-19] 08-20-2021 Episodic Past or Other Problems Problem Classification Problem Date Documented Da te Episodic/Chronic Other gastrointestinal disorders (1 source) Constipation, unspecified; Translations: [Constipation, unspecified] Onset: 05-24-2025 Episodic Results Test Name Value Interpretation Reference Range Facility Bedside Glucoseon 05-16-2025 FINGERSTICK GLU 241 mg/dL High 74-106 [facility] Comment on above: Result Comment: KARY VALENTE OF PATIENT CARE PER NURSING PROTOCOL Performed By: #### L 501.080 #### [facility] [address] [place], [address] Colonoscopy Reporton 025 Colonoscopy Report [facility] Medical Records Department [address] [place] [address] Colonoscopy Report MR#: [id number] Acct: [id number] Name: CINTHYA CARABALLO Rep #: [id number] : 1970 55 From: Arik Colorado MD PCP: Dr. Adan Herring MD Status:[facility] Patient Name: Cinthya Caraballo Procedure Date: 05/16/2025 9:35 AM Date of : 1970 Age: 55 Procedure: Colonoscopy Indications: Change in stool caliber, Constipation Providers: Arik Colorado MD Referring MD: Adan Herring Md Medicines: Propofol per Anesthesia Patient Profile: This is a 55 year old male. Refer to note in patient chart for documentation of history and physical. Last Colonoscopy: several years ago. Complications: No immediate complications. Procedure: Pre-Anesthesia Assessment: - Prior to the procedure, a History and Physical was performed, and patient medications and allergies were reviewed. The patient's tolerance of previous anesthesia was also reviewed. The risks and benefits of the procedure and the sedation options and risks were discussed with the patient. All questions were answered, and informed consent was obtained. Prior Anticoagulants: The patient has taken no anticoagulant or antiplatelet agents. After reviewing the risks and benefits, the patient was deemed in satisfactory condition to undergo the procedure. After I obtained informed consent, the scope was passed under direct vision. Throughout the procedure, the patient's blood pressure, pulse, and oxygen saturations were monitored continuously. The Colonoscope was introduced through the anus and advanced to the cecum, identified by appendiceal orifice and ileocecal valve. The colonoscopy was performed without difficulty. The patient tolerated the procedure well. The quality of the bowel preparation was good. The ileocecal valve, appendiceal orifice, and rectum were photographed. The Colonoscope was introduced through the and advanced to. Scope In: 9:43:06 AM Scope Withdrawal Time 0 hours 13 minutes 1 second Scope Out: 10:07:31 AM Total Procedure Duration Time 0 hours 24 minutes 25 seconds Findings: The entire examined colon appeared normal on direct and retroflexion views. Impression: - The entire examined colon is normal on direct and retroflexion views. - No specimens collected. Recommendation: - Discharge patient to home. - Resume previous diet. - Continue present medications. - Repeat colonoscopy in 10 years for screening purposes. Procedure Code(s): --- Professional --- 68587, Colonoscopy, flexible; diagnostic, including collection of specimen(s) by brushing or washing, when performed (separate procedure) Diagnosis Code(s): --- Professional --- R19.5, Other fecal abnormalities K59.00, Constipation, unspecified CPT copyright 2021 [employer]. All rights reserved. The codes documented in this report are preliminary and upon park naturalist review may be revised to meet current compliance requirements. Arik Colorado MD 05/16/2025 10:10:08 AM This report has been signed electronically. Number of Addenda: 0 Note Initiated On: 05/16/2025 9:35 AM 05/16/25 1021 Date Arik Colorado MD Cosigner Signature: Date (if indicated) CC: Dr. Arik Colorado MD; Dr. Adan Herring MD Date Dictated: 05/16/25 0935 Date Transcribed: Doctor Of Naprapathic Medicine: AC Signed Normal [facility] deOrdered By: Arik Colorado on 05-16-2025 Glucose [Mass/Vol] 241 mg/dL High 74-106 [facility] Comment on above: MANAGEMENT OF PATIEN T CARE PER NURSING PROTOCOL MR/POSTOP.ANEon 05-16-2025 MR/POSTOP.[facility] Medical Records Department [address] [place] [address] Anesthesia Postop Eval I 05/16/25 1019 MR#: [id number] Acct: [id number] Name: CINTHYA CARABALLO Rep #: [id number] : 1970 55 From: Bruno Swanson PCP: Dr. Adan Herring MD Status:[facility] Y Race: C Location: [place] [address] Anesthesia: Postop Eval I Current Vital Signs Temperature: 98.4 F Pulse Rate: 76 Blood Pressure: 112/80 Respiratory Rate: 16 Pulse Ox: 98 Oxygen Delivery Method: Room Air Assessment Airway patent: Yes Spontaneous unlabored respirations: Yes Mental status: Asleep nausea: No Vomiting: No Anesthesia Complication: No Fluid Hydration Crystalloid volume administer (ml): 500 Total IV fluid infused: 500 Progress Note Anesthesia document: Postop Eval 1 completed: Yes 05/16/25 1020 Date Bruno Watkins Signature: Date CC: Signed Normal [facility] MR/BRPEASUJ8al 05-16-2025 MR/POSTOPAN2 [facility] Medical Records Department [address] [place] [address] Anesthesia Postop Eval II 05/16/25 1532 MR#: [id number] Acct: [id number] Name: CINTHYA CARABALLONE Rep #: [id number] : 1970 55 From: Juanito Calix MD PCP: Dr. Adan Herring MD Status:DEP [facility] Y Race: C Location: EN Anesthesia Postop Eval I Sum Postop Eval Completion status Anesthesia document: Postop Eval 1 completed: Yes Anesthesia Postop Eval I Summary Anesthesia Postop Eval I Summary: Anesthesia Postop Eval I: Assessment Summary Airway patent Yes 05/16/25 10:20 [email or web address] Spontaneous unlabored Yes 05/16/25 10:20 [email or web address] respirations Mental status Asleep 05/16/25 10:20 [email or web address] nausea No 05/16/25 10:20 [email or web address] Vomiting No 05/16/25 10:20 [email or web address] Anesthesia Postop Eval I: Fluid Summary Crystalloid volume administer 500 05/16/25 10:20 [email or web address] (ml) Colloids volume administered ( ml) Blood Product volume administered (ml) Total IV fluid infused 500 05/16/25 10:20 [email or web address] Anesthesia Postop Eval I: Summary Notes Anesthesia Complication No 05/16/25 10:20 [email or web address] Anesthesia Complication Comment: Post-operative progress note Anesthesia: Postop Eval II Evaluation Mental status: Awake Pain Level: 0 nausea: No Vomiting: No Complications Anesthesia Complication: No 05/16/25 1532 Date Juanito Watkins Signature: Date CC: Signed Normal [facility] Surgery Visit Reporton 04-10 Surgery Visit Report [facility] [address] [place] [address]. [address] [place] [address] OFFICE VISIT Date of Service: 04/10/25 MR#: [id number] Acct: [id number] Name: CINTHYA CARABALLO Rep #: [id number] : 1970 Provider: Dr. Arik guzman MD Age/Sex: 55/M Location: [facility] Status: Signed Intake Vital Signs 11/25/23 20:00 [...] General: cooperative Orientation: alert and oriented x3 HENMT Head: normal to inspection Neck Neck: normal [...] attack with (more content not included)... Normal [facility] Absolute lymphocyte countOrd ered By: Willie Hernandezone on 11-25-2023 Lymphocytes Auto (Unsp spec) [#/Vol] 1.77 10*3/uL 0.83-4.51 [facility] Basophil percentageOrdered B y: Willie Kumar on 11-25-2023 Basophil percentage 0 SEEN /hpf 0-5 [facility] Basophils/100 WBC (Bld) 0.5 % 0-1 [facility] Chloride [Moles/Vol] 100 mmol/L 98-107 [facility] Eosinophils/100 WBC (Bld) 2.2 % 0-5 [facility] Glucose [Mass/Vol] 499 mg/dL 74-106 [facility] Comment on above: Moderate Lipemia, Re sult may be falsely increased. Critical Result(s) Called at: 22:48:34 11/25/2023 by: SHERI RUIZ TO MMARTIN2. Results read back by same.Glucose result greater than or equal to 200 mg/dLsuggests DIABETES MELLITUS per A.D.A. criteria. Neutrophils (Bld) [#/Vol] 3.0 10*3/uL 2.0-7.7 [facility] Neutrophils/100 WBC (Bld) 54.5 % 47-70 [facility] Potassium [Moles/Vol] 3.9 mmol/L 3.5-5.1 [facility] Comment on above: Moderate Hemolysis, Result may be falsely increased. Sodium [Moles/Vol] 134 mmol/L 136-145 [facility] WBC (Bld) [#/Vol] 5.6 10*3/uL 4.4-11.0 [facility] Bilirubin Test strip Ql (U)O rdered By: Willie Kumar on 11-25-2023 Bilirubin Ql (U) Negative Negative [facility] Blood [place] cells detection b y light microscopyOrdered By: Willie Kumar on 11-25-2023 [place] cells LM Ql (Bld) SCAN CRITERIA MET [facility] Blood erythrocytes count (nu mber/volume)Ordered By: Willie Kumar on 11-25-2023 RBC (Bld) [#/Vol] 4.68 10*6/uL 4.6-6.2 [facility] Blood hemoglobin measurement (mass/volume)Ordered By: Willie Kumar on 11-25-2023 Hemoglobin (Bld) [Mass/Vol] 15.8 g/dL 13.0-16.5 [facility] Blood lymphocytes/100 leukoc ytesOrdered By: Willie Kumar on 11-25-2023 Lymphocytes/100 WBC (Bld) 31.8 % 19-41 [facility] Blood monocytes/100 leukocyt esOrdered By: Willie Kumar on 11-25-2023 Monocytes/100 WBC (Bld) 9.7 % 0-10 [facility] Blood platelet adequacy dete ction by light microscopyOrdered By: Willie Kumar on 11-25-2023 Platelets LM Ql (Bld) ADEQUATE ADEQ [facility] Blood platelet mean volumeOr dered By: Willie Kumar on 11-25-2023 Platelet mean volume (Bld) [Entitic vol] 11.3 fL 6.2-12.0 [facility] Determination of erythrocyte mean corpuscular volume (MCV)Ordered By: Willie Kumar on 11-25-2023 MCV (RBC) [Entitic vol] 88.0 fL 80-94 [facility] Glucose Glucometer (BldC) [M ass/Vol]Ordered By: Willie Kumar on 11-25-2023 Glucose [Mass/Vol] 322 mg/dL 74-106 [facility] Comment on above: MANAGEMENT OF PATIEN T CARE PER NURSING PROTOCOL Hematocrit Auto (Bld) [Volum e fraction]Ordered By: Willie Kumar on 11-25-2023 Hematocrit (Bld) [Volume fraction] 41.2 % 40-54 [facility] Ketones Test strip Ql (U)Ord ered By: Willie Kumar on 11-25-2023 Ketones Ql (U) 5 mg/dl Negative [facility] Laboratory - Chemistry and C hemistry - challengeOrdered By: Willie Kumar on 11-25-2023 CO2 [Moles/Vol] 19.0 mmol/L 21.0-32.0 [facility] Urea nitrogen/Creatinine [Mass ratio] 8.7 mg/mg 10-20 [facility] - Hematology and Cell countsOrdered By: Willie Kumar on 11-25-2023 Anisocytosis Ql (Bld) RARE [facility] Erythrocyte distribution width (RBC) [Entitic vol] 39.6 fL 35.1-43.9 [facility] Erythrocyte distribution width (RBC) [Ratio] 12.3 % 11.6-14.6 [facility] Immature granulocytes/100 WBC (Bld) 1.300 % 0.0-0.9 [facility] Comment on above: IG% - Immature Granu locytes (promyelocytes, myelocytes and metamyelocytes) > 1% indicates that a LEFT SHIFT is Present. MCH (RBC) [Entitic mass] 33.8 pg 27.0-32.0 [facility] Nucleated RBC/100 WBC (Bld) [Ratio] 0 % 0-5 [facility] MCHC Auto (RBC) [Mass/Vol]Or dered By: Willie Kumar on 11-25-2023 MCHC (RBC) [Mass/Vol] 38.3 g/dL 32-36 [facility] Mucus LM Ql (Urine sed)Order ed By: Willie Kumar on 11-25-2023 Mucus Ql (Urine sed) 0 SEEN /hpf [facility] Nitrite Test strip Ql (U)Ord ered By: Willie Kumar on 11-25-2023 Nitrite Ql (U) Negative Negative [facility] No Panel InformationOrdered By: Willie Kumar on 11-25-2023 Estimated Creatinine Clearance Calc 65.93 ml/min [facility] Estimated GFR (MDRD) Amer 69 mL/min >60 [facility] Comment on above: GFR Calc Estimated GFR (MDRD) Non-Af Amer 57 mL/min >60 [facility] Comment on above: Non- GFR Calc Platelets bldOrdered By: Dean Kumar on 11-25-2023 Platelets (Bld) [#/Vol] 164 10*3/uL 150-450 [facility] Protein Test strip Ql (U)Ord ered By: Willie Kumar on 11-25-2023 Protein Ql (U) Negative Negative [facility] RBC morphologyOrdered By: Carlos Enrique Kumar on 11-25-2023 RBC morphology finding Nom (Bld) N CHROM NORMAL NORM C&C [facility] Serum or plasma calcium topher urement (mass/volume)Ordered By: Willie Kumar on 11-25-2023 Calcium [Mass/Vol] 7.6 mg/dL 8.5-10.1 [facility] Comment on above: Moderate Lipemia, Re sult may be falsely decreased. Serum or plasma creatinine m easurement (mass/volume)Ordered By: Willie Kumar on 11-25-2023 Creatinine [Mass/Vol] 1.38 mg/dL 0.70-1.30 [facility] Comment on above: The validity of the calculated GFR & GFRAA in patients over 70 years has not been determined. Clinical correlation is essential. Serum or plasma urea nitroge n measurement (mass/volume)Ordered By: Willie Kumar on 11-25-2023 Urea nitrogen [Mass/Vol] 12 mg/dL 7-18 [facility] Squamous epithelial cells de tection in urine sediment by light microscopyOrdered By: Willie Kumar on 11-25-2023 Epithelial cells.squamous LM Ql (Urine sed) 0 SEEN /hpf 0-5 [facility] Thin prep Papanicolaou smear with manual screeningOrdered By: Willie Kumar on 11-25-2023 Thin prep Papanicolaou smear with manual screening 15 5-15 [facility] Urine blood detectionOrdered By: Willie Kumar on 11-25-2023 RBC Ql (U) Negative Negative [facility] RBC Ql (U) 0 SEEN /hpf 0-5 [facility] Urine clarityOrdered By: Dean Kumar on 11-25-2023 Clarity (U) Clear Clear [facility] Urine color determinationOrd ered By: Willie Kumar on 11-25-2023 Color (U) Yellow Yellow [facility] Urine glucose detectionOrder ed By: Willie Kumar on 11-25-2023 Glucose Ql (U) 1000 mg/dl Normal [facility] Urine leukocyte esterase det ection by dipstickOrdered By: Willie Kumar on 11-25-2023 Leukocyte esterase Test strip Ql (U) Negative Negative [facility] Urine pHOrdered By: Willie Kumar on 11-25-2023 pH (U) 6.0 [pH] 5.0 - 8.0 [facility] Urine sediment bacteria coun t by microscopy (number/high power field)Ordered By: Willie Kumar on 11-25-2023 Bacteria LM.HPF (Urine sed) [#/Area] 0 /[HPF] None Seen [facility] Urine specific gravity measu rementOrdered By: Willie Kumar on 11-25-2023 Specific gravity (U) [Rel density] 1.010 1.002-1.030 [facility] Urobilinogen Auto test strip Ql (U)Ordered By: Willie Kumar on 11-25-2023 Urobilinogen Ql (U) Normal mg/dl Normal [facility] Absolute lymphocyte countOrd ered By: Dr. Bishop on 01-30-2023 Lymphocytes Auto (Unsp spec) [#/Vol] 1.67 10*3/uL 0.83-4.51 [facility] Basophil percentageOrdered B y: Dr. Bishop on 01-30-2023 Basophils/100 WBC (Bld) 0.5 % 0-1 [facility] Bilirubin [Mass/Vol] 0.90 mg/dL 0.20-1.00 [facility] Comment on above: For patients on eltr ombopag therapy, use of Dimension [place] TBIL is not recommended. Chloride [Moles/Vol] 104 mmol/L 98-107 [facility] Cholesterol [Mass/Vol] 132 mg/dL <200 [facility] Comment on above: <200 mg/dL Desirable 200-240 mg/dL Borderline >240 mg/dL High Risk Eosinophils/100 WBC (Bld) 3.1 % 0-5 [facility] Glucose [Mass/Vol] 183 mg/dL 74-106 [facility] Comment on above: Fasting Glucose resu lt greater than or equal to 126 mg/dL suggests DIABETES MELLITUS per A.D.A. criteria. Neutrophils (Bld) [#/Vol] 3.4 10*3/uL 2.0-7.7 [facility] Neutrophils/100 WBC (Bld) 56.7 % 47-70 [facility] Potassium [Moles/Vol] 3.8 mmol/L 3.5-5.1 [facility] Protein [Mass/Vol] 7.1 g/dL 6.4-8.2 [facility] Sodium [Moles/Vol] 140 mmol/L 136-145 [facility] Triglyceride [Mass/Vol] 144 mg/dL <199 [facility] Comment on above: The drugs N-Acetylcy steine and Metamizole may falsely depress this assay.Serum Triglycerides Reference Interval Normal <150 mg/dL Borderline high 150 - 199 mg/dL High 200 - 499 mg/dL Very High > or = 500 mg/dL WBC (Bld) [#/Vol] 5.9 10*3/uL 4.4-11.0 [facility] Bilirubin Test strip Ql (U)O rdered By: Dr. Bishop on 01-30-2023 Bilirubin Ql (U) Negative Negative [facility] Blood erythrocytes count (nu mber/volume)Ordered By: Dr. Bishop on 01-30-2023 RBC (Bld) [#/Vol] 5.02 10*6/uL 4.6-6.2 [facility] Blood hemoglobin measurement (mass/volume)Ordered By: Dr. Bishop on 01-30-2023 Hemoglobin (Bld) [Mass/Vol] 16.3 g/dL 13.0-16.5 [facility] Blood lymphocytes/100 leukoc ytesOrdered By: Dr. Bishop on 01-30-2023 Lymphocytes/100 WBC (Bld) 28.3 % 19-41 [facility] Blood monocytes/100 leukocyt esOrdered By: Dr. Bishop on 01-30-2023 Monocytes/100 WBC (Bld) 11.2 % 0-10 [facility] Blood platelet mean volumeOr dered By: Dr. Bishop on 01-30-2023 Platelet mean volume (Bld) [Entitic vol] 10.8 fL 6.2-12.0 [facility] Determination of erythrocyte mean corpuscular volume (MCV)Ordered By: Dr. Bishop on 01-30-2023 MCV (RBC) [Entitic vol] 89.4 fL 80-94 [facility] Erythrocyte sedimentation ra teOrdered By: Dr. Bishop on 01-30-2023 ESR (Bld) [Velocity] 8 mm/h 0-20 [facility] Hematocrit Auto (Bld) [Volum e fraction]Ordered By: Dr. Bishop on 01-30-2023 Hematocrit (Bld) [Volume fraction] 44.9 % 40-54 [facility] Ketones Test strip Ql (U)Ord ered By: Dr. Bishop on 01-30-2023 Ketones Ql (U) 5 mg/dl Negative [facility] Laboratory - Chemistry and C hemistry - challengeOrdered By: Dr. Bishop on 01-30-2023 ALP [Catalytic activity/Vol] 94 U/L 45-117 [facility] ALT [Catalytic activity/Vol] 47 U/L 16-61 [facility] CK [Catalytic activity/Vol] 194 U/L 39-308 [facility] CO2 [Moles/Vol] 27.0 mmol/L 21.0-32.0 [facility] Globulin (S) [Mass/Vol] 3.3 g/dL 2.2-4.2 [facility] Urea nitrogen/Creatinine [Mass ratio] 16.6 mg/mg 10-20 [facility] - Hematology and Cell countsOrdered By: Dr. Bishop on 01-30-2023 Erythrocyte distribution width (RBC) [Entitic vol] 40.7 fL 35.1-43.9 [facility] Erythrocyte distribution width (RBC) [Ratio] 12.5 % 11.6-14.6 [facility] Immature granulocytes/100 WBC (Bld) 0.200 % 0.0-0.9 [facility] Comment on above: IG% - Immature Granu locytes (promyelocytes, myelocytes and metamyelocytes) > 1% indicates that a LEFT SHIFT is Present. MCH (RBC) [Entitic mass] 32.5 pg 27.0-32.0 [facility] Nucleated RBC/100 WBC (Bld) [Ratio] 0 % 0-5 [facility] MCHC Auto (RBC) [Mass/Vol]Or dered By: Dr. Bishop on 01-30-2023 MCHC (RBC) [Mass/Vol] 36.3 g/dL 32-36 [facility] Nitrite Test strip Ql (U)Ord ered By: Dr. Bishop on 01-30-2023 Nitrite Ql (U) Positive Negative [facility] No Panel InformationOrdered By: Dr. Bishop on 01-30-2023 Estimated GFR (MDRD) Amer 105 mL/min >60 [facility] Comment on above: GFR Calc Estimated GFR (MDRD) Non-Af Amer 87 mL/min >60 [facility] Comment on above: Non- GFR Calc Prostate Specific Antigen Screen 0.61 ng/mL 0.00-4.00 [facility] Comment on above: This test was perfor med using the TPSA assay method for theDimension chemistry system. Values obtained with differentassay methods cannot be used interchangably.When changing PSA assays in the course of monitoring apatient, additional sequential testing should be carriedout to confirm baseline values. Urine Microalbumin/Creatinine Ratio 9.4 mg/g CRE <30 [facility] Platelets bldOrdered By: Dr. Bishop on 01-30-2023 Platelets (Bld) [#/Vol] 200 10*3/uL 150-450 [facility] Protein Test strip Ql (U)Ord ered By: Dr. Bisohp on 01-30-2023 Protein Ql (U) 30 mg/dl Negative [facility] Serum or plasma C reactive p rotein measurement (mass/volume)Ordered By: Dr. Bishop on 01-30-2023 CRP [Mass/Vol] mg/L 0.0-3.0 [facility] Comment on above: C-Reactive Protein ( CRP) provides useful information for thediagnosis, therapy and monitoring of inflammatory processesand associated diseases. For the evaluation of Relative Riskfor Cardiovascular Disease, a High Sensitivity CRP (HSCRP)should be ordered. Serum or plasma albumin topher urement (mass/volume)Ordered By: Dr. Bishop on 01-30-2023 Albumin [Mass/Vol] 3.8 g/dL 3.2-5.0 [facility] Serum or plasma albumin/glob ulin mass ratioOrdered By: Dr. Bishop on 01-30-2023 Albumin/Globulin [Mass ratio] 1.2 {ratio} 0.9-2.4 [facility] Serum or plasma calcium topher urement (mass/volume)Ordered By: Dr. Bishop on 01-30-2023 Calcium [Mass/Vol] 8.8 mg/dL 8.5-10.1 [facility] Serum or plasma cholesterol in HDL measurement (mass/volume)Ordered By: Dr. Bishop on 01-30-2023 Cholesterol in HDL [Mass/Vol] 31 mg/dL >40 [facility] Comment on above: The drugs N-Acetylcy steine and Metamizole may falsely depress this assay. Reference Range HDL <40 mg/dL Low HDL Cholesterol HDL >or= 60 mg/dL High HDL Cholesterol Serum or plasma cholesterol in VLDL measurement (mass/volume)Ordered By: Dr. Bishop on 01-30-2023 Cholesterol in VLDL [Mass/Vol] 29 mg/dL 5-40 [facility] Serum or plasma creatinine m easurement (mass/volume)Ordered By: Dr. Bishop on 01-30-2023 Creatinine [Mass/Vol] 0.97 mg/dL 0.70-1.30 [facility] Comment on above: The validity of the calculated GFR & GFRAA in patients over 70 years has not been determined. Clinical correlation is essential. Serum or plasma low density lipoprotein (LDL) cholesterol measurement (mass/volume)Ordered By: Dr. Bishop on 01-30-2023 Cholesterol in LDL [Mass/Vol] 72 mg/dL 0-130 [facility] Serum or plasma urea nitroge n measurement (mass/volume)Ordered By: Dr. Bishop on 01-30-2023 Urea nitrogen [Mass/Vol] 16 mg/dL 7-18 [facility] Thin prep Papanicolaou smear with manual screeningOrdered By: Dr. Bishop on 01-30-2023 Thin prep Papanicolaou smear with manual screening 41 U/L 15-37 [facility] Thin prep Papanicolaou smear with manual screening 9 5-15 [facility] Thin prep Papanicolaou smear with manual screening 20.9 mg/L NO RANGE EST. [facility] Urine blood detectionOrdered By: Dr. Bishop on 01-30-2023 RBC Ql (U) Negative Negative [facility] Urine clarityOrdered By: Dr. Bishop on 01-30-2023 Clarity (U) Clear Clear [facility] Urine color determinationOrd ered By: Dr. Bishop on 01-30-2023 Color (U) SEE COMMENT BELOW Yellow [facility] Comment on above: Visual Urine Color: PINK Urine creatinine measurement (mass/volume)Ordered By: Dr. Bishop on 01-30-2023 Creatinine (U) [Mass/Vol] 223.00 mg/dL NO RANGE EST. [facility] Urine glucose detectionOrder ed By: Dr. Bishop on 01-30-2023 Glucose Ql (U) 50 mg/dl Normal [facility] Urine leukocyte esterase det ection by dipstickOrdered By: Dr. Bishop on 01-30-2023 Leukocyte esterase Test strip Ql (U) 25 /ul Negative [facility] Urine pHOrdered By: Dr. Gary beltran on 01-30-2023 pH (U) 5.0 [pH] 5.0 - 8.0 [facility] Urine specific gravity measu rementOrdered By: Dr. Bishop on 01-30-2023 Specific gravity (U) [Rel density] 1.025 1.002-1.030 [facility] Urobilinogen Auto test strip Ql (U)Ordered By: Dr. Bishop on 01-30-2023 Urobilinogen Ql (U) Normal mg/dl Normal [facility] Whole blood hemoglobin A1c/t otal hemoglobin ratio (mass fraction)Ordered By: Dr. Bishop on 01-30-2023 HbA1c (Bld) [Mass fraction] 6.4 % 3.8-5.6 [facility] Comment on above: Normal < 5.7 % Predi abetic 5.7 - 6.4 % Diabetic >or= 6.5 % Please note range changes. Absolute lymphocyte counton 05-02-2022 Lymphocytes Auto (Unsp spec) [#/Vol] 1.82 10*3/uL 0.83-4.51 [facility] Work Phone: Basophil percentageon 2021 Basophils/100 WBC (Bld) 0.4 % 0-1 [facility] Work Phone: Chloride [Moles/Vol] 106 mmol/L 98-107 [facility] Work Phone: Eosinophils/100 WBC (Bld) 2.2 % 0-5 [facility] Work Phone: Glucose [Mass/Vol] 190 mg/dL 74-106 [facility] Work Phone: Comment on above: Fasting Glucose resu lt greater than or equal to 126 mg/dL suggests DIABETES MELLITUS per A.D.A. criteria. Neutrophils (Bld) [#/Vol] 4.1 10*3/uL 2.0-7.7 [facility] Work Phone: Neutrophils/100 WBC (Bld) 60.7 % 47-70 [facility] Work Phone: Potassium [Moles/Vol] 3.6 mmol/L 3.5-5.1 [facility] Work Phone: Comment on above: Slight Hemolysis, Re sult may be falsely increased. Sodium [Moles/Vol] 139 mmol/L 136-145 [facility] Work Phone: WBC (Bld) [#/Vol] 6.8 10*3/uL 4.4-11.0 [facility] Work Phone: Blood erythrocytes count (nu mber/volume)on 05-02-2022 RBC (Bld) [#/Vol] 5.12 10*6/uL 4.6-6.2 [facility] Work Phone: Blood hemoglobin measurement (mass/volume)on 05-02-2022 Hemoglobin (Bld) [Mass/Vol] 16.3 g/dL 13.0-16.5 [facility] Work Phone: Blood lymphocytes/100 leukoc yteson 05-02-2022 Lymphocytes/100 WBC (Bld) 26.7 % 19-41 [facility] Work Phone: Blood monocytes/100 leukocyt eson 05-02-2022 Monocytes/100 WBC (Bld) 9.4 % 0-10 [facility] Work Phone: Blood platelet mean volumeon 05-02-2022 Platelet mean volume (Bld) [Entitic vol] 12.2 fL 6.2-12.0 [facility] Work Phone: Determination of erythrocyte mean corpuscular volume (MCV)on 05-02-2022 MCV (RBC) [Entitic vol] 88.7 fL 80-94 [facility] Work Phone: Hematocrit Auto (Bld) [Volum e fraction]on 05-02-2022 Hematocrit (Bld) [Volume fraction] 45.4 % 40-54 [facility] Work Phone: Laboratory - Chemistry and C hemistry - challengeon 05-02-2022 CO2 [Moles/Vol] 27.0 mmol/L 21.0-32.0 [facility] Work Phone: Urea nitrogen/Creatinine [Mass ratio] 13.2 mg/mg 10-20 [facility] Work Phone: Laboratory - Hematology and Cell countson 05-02-2022 Erythrocyte distribution width (RBC) [Entitic vol] 41.3 fL 35.1-43.9 [facility] Work Phone: Erythrocyte distribution width (RBC) [Ratio] 12.7 % 11.6-14.6 [facility] Work Phone: Immature granulocytes/100 WBC (Bld) 0.600 % 0.0-0.9 [facility] Work Phone: Comment on above: IG% - Immature Granu locytes (promyelocytes, myelocytes and metamyelocytes) > 1% indicates that a LEFT SHIFT is Present. MCH (RBC) [Entitic mass] 31.8 pg 27.0-32.0 [facility] Work Phone: Nucleated RBC/100 WBC (Bld) [Ratio] 0 % 0-5 [facility] Work Phone: MCHC Auto (RBC) [Mass/Vol]on 05-02-2022 MCHC (RBC) [Mass/Vol] 35.9 g/dL 32-36 [facility] Work Phone: No Panel Informationon 05-02 Estimated GFR (MDRD) Amer 94 mL/min >60 [facility] Work Phone: Comment on above: GFR Calc Estimated GFR (MDRD) Non-Af Amer 78 mL/min >60 [facility] Work Phone: Comment on above: Non- GFR Calc Platelets bldon 05-02-2022 Platelets (Bld) [#/Vol] 220 10*3/uL 150-450 [facility] Work Phone: Serum or plasma calcium topher urement (mass/volume)on 05-02-2022 Calcium [Mass/Vol] 9.3 mg/dL 8.5-10.1 [facility] Work Phone: Serum or plasma creatinine m easurement (mass/volume)on 05-02-2022 Creatinine [Mass/Vol] 1.06 mg/dL 0.70-1.30 [facility] Work Phone: Comment on above: The validity of the calculated GFR & GFRAA in patients over 70 years has not been determined. Clinical correlation is essential. Serum or plasma urea nitroge n measurement (mass/volume)on 05-02-2022 Urea nitrogen [Mass/Vol] 14 mg/dL 7-18 [facility] Work Phone: Thin prep Papanicolaou smear with manual screeningon 05-02-2022 Thin prep Papanicolaou smear with manual screening 6 5-15 [facility] Work Phone: PROGRESSon 08-23-2018 Protein mass conc HNO ID: [id number]: Jessica Mccarthy CmaService: (none)Author Type: (none)Type: Progress [...] to get donewhenever, if he'd like. Normal [facility] Protein mass conc HNO ID: [id number] Author: Jessica Mccarthy Cma Service: (none) Author Type: (none) Type: Progress Notes Filed: 08/23/2018 2:13 PM Note Text: Left message for patient to return call #[phone] Normal [facility] CNPTOUTREACHon [facility] CINTHYA CARABALLO Marline ([id number]) 1970 M CHTDate Time Provider Department08/18/18 JESSICA MCCARTHY ([facility]) INTMWS During your visit today, we recorded the following information about you:Jessica Mccarthy [facility] 08/23/2018 2:13 PM Signed PHMA TEAMLET DOCUMENTATIONProvider [...] increased Triglycerides. See LDL-Chol,Direct.-------- --Triglyceride (mg/dL)Date Value02/28/2015 93300 1130 HGB A1C:Lab ResultsComponent Value OuloINJ4W 5.1 02/07/2015TSH:TSH (uU/mL)Date Value05/21/2015 2.8196202/28/2015 1.070 )Care Gap: HypertriglycereidemiaIFG Plan:? Confirm PCP / Status - unknown? Type of appointment needed: Physical next available? Consultation Appointments: n/aLabs, HM and Immunization:Health Maintenance Due:DIABETES SCREEN due on 05/21/2018 - order pendingINFLUENZA(1) due on 07/31/2018Jessica Fabio [facility]ij[facility]ph Mccarthy [facility] 08/23/2018 2:13 PM SignedMyChart message sent.Jessica Fabio [facility] 08/23/2018 2:13 PM SignedLeft message for patient to return call #[phone] Mccarthy [facility] 08/23/2018 2:13 PM SignedI called Cinthya and [...] Wasserman LPN - Fully AssessedReason for Visit: [facility]/Care Gap Outreach [[id number]]Primary Visit Diagnosis:Encounter for screening for diabetes mellitus [Z13.1] Other Visit Diagnoses:Screening, lipid [Z13.220] Impaired fasting glucose [R73.01] Chronic hepatitis C without hepatic coma (HCC) [B18.2]Order(s):LIPID PANEL BASIC [SQLIPB] Order #: [id number] FUTURE HGB A1C [BFZBT1H] Order #: [id number] FUTURE COMP METABOLIC PANEL [SQCMP] Order #: [id number] FUTUREPrescriptions as of 08/18/2018 Sig: FENOFIBRATE 160 MG TABLET Take 1 tablet by mouth once d* LEDIPASVIR 90 MG-SOFOSBUVIR 4* Take 1 tablet by mouth once d*Problem List As Of Date 08/18/2018 Noted Resolved Hypertriglyceridemia [E78.1] INVALID FOR* Impaired fasting glucose [R73.01] INVALID FOR* Hepatitis C, chronic (HCC) [B18.2] INVALID FOR* Status:Closed by JESSICA MCCARTHY CMA on 08/23/18 Normal [facility] PROGRESSon 08-18-2018 Protein mass conc HNO ID: [id number] Author: Jessica Mccarthy Cma Service: (none) Author Type: (none) Type: Progress Notes Filed: 08/23/2018 2:13 PM Note Text: MyChart message sent. Normal [facility] Protein mass conc HNO ID: [id number]: Jessica Mccarthy CmaService: (none)Author Type: (none)Type: Progress [...] Triglycerides. SeeLDL-Chol, Direct. Triglyc eride (mg/dL)Date Value02/28/2015 80333 1130 HGB A1C:Lab ResultsComponent Value BuanIRJ1G 5.1 02/07/2015TSH:TSH (uU/mL)Date Value05/21/2015 2.38441/11/2014 1.070 )Care Gap: HypertriglycereidemiaIFG Plan:? Confirm PCP / Status - unknown? Type of appointment needed: Physical next available? Consultation Appointments: n/aLabs, HM and Immunization:Health Maintenance Due:DIABETES SCREEN due on 05/21/2018 - order pendingINFLUENZA(1) due on 07/31/2018Jessica Mccarthy [facility] Normal [facility] Vital Signs Date Time Vital Sign Value Performing Clinician Faci lity 05-16-2025 10:51-0400 Body temperature 98.9 [degF] Adan Herring MD Work Phone: [facility] 05-16-2025 10:51-0400 Diastolic blood pressure 82 mm[Hg] Adan Herring MD Work Phone: 2(622)091-878545 [place] [address] 05-16-2025 10:51-0400 Heart rate 73 /min Adan Herring MD Work Phone: 3(699)581-029945 [place] [address] 05-16-2025 10:51-0400 Respiratory rate 16 /min Adan Herring MD Work Phone: 5(153)973-757245 [place] [address] 05-16-2025 10:51-0400 SaO2% (BldA) [Mass fraction] 99 % Adan Herring MD Work Phone: 7(174)641-598545 [place] [address] 05-16-2025 10:51-0400 Systolic blood pressure 112 mm[Hg] Adan Herring MD Work Phone: 4(455)074-339258 [address] 05-16-2025 09:09-0400 Body height 180.34 cm Adan Herring MD Work Phone: 3([phone])010-236845 [place] [address] 05-16-2025 09:09-0400 Body mass index (BMI) [Ratio] 25.4 kg/m2 Adan Herring MD Work Phone: 3(005)407-282745 [place] [address] 05-16-2025 09:09-0400 Body weight 83 kg Adan Herring MD Work Phone: 7(340)[phone] [place] [address] 04-10-2025 14:00-0400 Body mass index (BMI) [Ratio] 27 kg/m2 Adan Herring MD Work Phone: 7(077)051-292003 [place] [address] 04-10-2025 14:00-0400 Body weight 87.99 kg Adan Herring MD Work Phone: 1(299)184-450603 [place] [address] 04-10-2025 14:00-0400 Diastolic blood pressure 93 mm[Hg] Adan Herring MD Work Phone: 0(083)934-475003 [place] [address] 04-10-2025 14:00-0400 Heart rate 74 /min Adan Herring MD Work Phone: [facility] 04-10-2025 14:00-0400 Respiratory rate 17 /min Adan Herring MD Work Phone: [facility] 04-10-2025 14:00-0400 SaO2% (BldA) [Mass fraction] 98 % Adan Herring MD Work Phone: [facility] 04-10-2025 14:00-0400 Systolic blood pressure 143 mm[Hg] Adan Herring MD Work Phone: [facility] 11-26-2023 00:50-0500 Diastolic blood pressure 98 mm[Hg] [facility] 11-26-2023 00:50-0500 Heart rate 79 /min [facility] 11-26-2023 00:50-0500 Respiratory rate 18 /min [facility] 11-26-2023 00:50-0500 SaO2% (BldA) [Mass fraction] 97 % [facility] 11-26-2023 00:50-0500 Systolic blood pressure 136 mm[Hg] [facility] 11-25-2023 20:00-0500 Body height 180.34 cm [facility] 11-25-2023 20:00-0500 Body mass index (BMI) [Ratio] 27.3 kg/m2 [facility] 11-25-2023 20:00-0500 Body temperature 97.6 [degF] [facility] 11-25-2023 20:00-0500 Body weight 88.9 kg [facility] Encounters Encounter Date Encounter Type Care Provider Facility Start: [facility]11[facility] Start: 10-03-2025 Encounter for other preprocedural examination Samir Garcia [facility] Start: 05-16-2025 Non-patient / Non-visit Dr. Raeann Colorado MD -[facility] Start: 05-16-2025 End: 05-16-2025 Admission to same day surgery center Dr. Arik Colorado MD -Endoscopy Work Phone: Start: 05-16-2025 End: 05-16-2025 ambulatory Adan Herring MD Work Phone: [facility] Work Phone: Start: 04-10-2025 End: 04-10-[address] Arik Colorado MD -[facility] Work Phone: Start: 04-10-2025 End: 04-10-2025 ambulatory Adan Herring Facility:[facility] Start: 02-04-2024 Non-patient / Non-visit MD Michelle Herring Work Phone: [facility] Start: 02-04-2024 End: 02-04-2024 ambulatory MD Adan Herring Work Phone: [facility] Work Phone: Start: 02-04-2024 End: 02-04-2024 Patient encounter procedure MD Adan Herring Work Phone: [facility]-Cardi[facility] Work Phone: Start: 11-25-2023 End: 11-26-2023 Emergency department patient visit [facility]-Emergency Department Work Phone: Start: 01-30-2023 End: 01-30-2023 ambulatory [facility] Work Phone: Start: 01-30-2023 End: 01-30-2023 [facility] Start: 05-02-2022 End: 05-02-2022 Patient encounter procedure [facility]-Laboratory, [place] Procedures Date Procedure Procedure Detail Performing Clinician Start: 05-16-2025 Colonoscopy Adan anderson MD Work Phone: Plan of Treatment Date Care Activity Detail Author Start: 05-16-2025 Patient discharge [facility] Start: 11-26-2023 [facility] Antibody to lupus La protein measurement [facility] Antibody to SS-A measurement [facility] Centromere protein B Ab [Units/volume] in Serum [facility] Chromatin Ab [Units/volume] in Serum or Plasma [facility] Colonoscopy [facility] DNA double strand Ab [Units/volume] in Serum [facility] Martha-1 extractable nuclear Ab [Units/volume] in Serum [facility] Nuclear Ab [Presence ] in Serum [facility] Patient Education ED Diabetic Hyperglycem ia [facility] Work Phone: Patient referral [facility] Work Phone: SCL-70 extractable nuclear Ab [Units/volume] in Serum by Immunoassay [facility] Palomares extractable nuclear Ab [Presence] in Serum [facility] Payers Date Payer Category Payer Self-pay [id number] Unknown [id number] Private Health Insurance [employer] [id number] Private Health Insurance [employer] [id number] Unknown [id number] Unknown R LESLIE [id number] Unknown [id number] Unknown [id number] Unknown [id number] Unknown [id number] Social History Date Type Detail Facility Start: 12-30-2021 End: 11-25-2023 Tobacco smoking status NHIS Unknown if ever smoked [facility] Start: 01-28-2021 Chew [facility] Start: 1970 Sex Assigned At Male [facility] Start: 05-11-2025 Tobacco smoking stat us NHIS Current some day smoker [facility] Medical Equipment Procedure Code Equipment Code Equipment [...] Plantar Lapidus Plate Right FDA Start: 05-20-2019 Goals Date Patient Goal Desired Activity /State Mental Status Date Assessment Result Facility 05-16-2025 Cognitive function Touch/Shaking;Light Pa in [facility] Work Phone: 11-25-2023 Cognitive function Level Of Cons ciousness Awake;Alert;Appropriate;Follow s Commands [facility] Work Phone: Clinical Notes 11-25-2023 to 05-16-2025 Note Date & Type Note Facility 05-16-2025 Procedure note [facility] 05-16-2025 Procedure note [facility] 05-16-2025 Consult note [facility] 05-16-2025 Consult note [facility] 05-16-2025 History and physi geeta note [facility] 05-16-2025 Note [facility] Medical Records Department [address] [place] [address] History Physical Exam 05/16/25927 MR#: [id number] Acct: [id number] Name: CINTHYA CARABLALO Rep #: [id number] : 1970 55 From: Arik Colorado MD PCP: Dr. Adan Herring MD Status:[facility] Location: [place] [address] History and Physical Date of Admission: 05/16/25 Intake Vital Signs 11/25/2320:00 04/10/2514:00 Height 5 ft 11 in 5 ft [...] by Yvette Man) Mother Diabetes Hypertension Breast cancerBrother Diabetes Hypertension Social History (Updated 04/10/25 @ [...] General: cooperative Orientation: alert and oriented x3 HENMT Head: normal to inspection Neck Neck: normal [...] including but not limited to stroke or he (more content not included)... [facility] 04-10-2025 Evaluation note Diagnosis Onset Date Resolution Constipation acute April 10 1:27pm [facility] Work Phone: 1(557) 293-578212-27-2023 Discharge summary Author Willie Kumar [facility] November 26, 2023 12:23am Note Date/Time November 25, 2023 9:03pm [facility] Medical Records Department [address] [place] [address] Emergency Department Summary 11/25/23 MR#: [id number] Acct: [id number] Name: CINTHYA CARABALLO Rep #:[id number] : 1970 53 From: Willie Kumar MD [...] for this that he can think of. [facility] Medical History Diabetes Hypertension Hypertension Home Medications [...] % (Auto) 54.5 Lymph % (Auto) 31.8 [place] % (Auto) 9.7 Eos % (Auto) 2.2 [...] Clarity Clear Urine pH 6.0 Ur Specific [place] 1.010 Urine Protein Negative Urine Glucose (UA) [...] (Auto) Neut % (Auto) Lymph % (Auto) [place] % (Auto) Eos % (Auto) Baso % (Auto) Absolute Neuts (auto) Absolute Lymphs (auto) Nucleated RBC % Platelet Estimate RBC Morphology Anisocytosis [place] Cells Sodium Potassium Chloride Carbon Dioxide Anion Gap BUN Creatinine Estim Creat Clear Calc Est GFR (MDRD) Af Amer Est GFR (MDRD) Non-Af BUN/Creatinine Ratio Glucose Calcium Urine Color Urine Clarity Urine pH Ur Specific [place] Urine Protein Urine Glucose (UA) Urine Ketones [...] Pain 1-10 Or Fever) Primary Care Provider: Garrison Bishop Referrals: Garrison Bishop DO [Primary Care Provider] - As soon as [...] your Primary Care Provider. Call [facility] ([phone]) or report to the closest Emergency Room. Call 911 if necessary. 11/26/23 0023 <Electronically signed by Willie Kumar MD> Cosigner Signature (if applicable): CC: Dr. Garrison Bishop DO ~ Signed [facility] Work Phone: Consult note Author Juanito Calix [facility] Note Date/Time May 16, 2025 9:36 am [facility] [facility] Department [address] [place] [address] Pre-Anesthesia Evaluation 05/16/25921 MR#: [id number] Acct: [id number] Name: CINTHYA CARABALLO Rep #:[id number] : 1970 55 From: Juanito Calix MD PCP: Dr. Adan Herring MD Status:REG SD C Y Race: C Location: [place] [address] ASA Classification* ASA Classification ASA Classification: 2 (HTN, DM) Assessment & Plan Anesthesia* Anesthesia Assessment Anesthesia Assessment: Discussed sedation and/or anesthesia options, risks, benefits, and alternatives with patient/parents/legal guardian/POA. Questions invited. The patient/parents/legal guardian/POA seems to understand and agrees to proceedwith anesthesia plan. Reviewed the physical assessment, medical history, allergy history and patient home medications list prior to surgery/procedure/anesthetic and documented any changes. Performed airway and anesthesia risk assessments. Anesthesia Type Anesthesia Type: General History Source History Obtained from:: Patient and Chart Anesthesia Focused Assessment* Temperature: 98.4 F Pulse Rate: 60 Blood Pressure: 114/78 Respiratory Rate: 16 Pulse Ox: 98 Oxygen Delivery Method: Room Air Airway Assessment Mouth opens: >3 cm Mallampati Score: II Teeth Condition: Intact and Missing (missing a few ) Neck Range of motion (ROM): Full ROM Labs Anesthesia Preop lab: CBC WBC 5.6 K/mm3 (4.4-11.0) 11/25/23 21:04 11/25/23 RBC 4.68 M/mm3 (4.6-6.2) 11/25/23 21:11/25/23 Hgb 15.8 g/dL (13.0-16.5) 11/25/23 21:11/25/23 Hct 41.2 % (40-54) 11/25/23 21:11/25/23 Plt Count 164 K/mm3 (150-450) 11/25/23 21:11/25/23 CHEMISTRY Potassium 3.9 mmol/L (3.5-5.1) 11/25/23 21:04 11/25/23 Sodium 134 mmol/L (136-145) L 11/25/23 21:04 11/25/23 Magnesium 2.3 mg/dL (1.6-2.6) 09/19/20 15:33 09/19/20 BUN 12 mg/dL (7-18) 11/25/23 21:04 11/25/23 Creatinine 1.38 mg/dL (0.70-1.30) H 11/25/23 21:04 Glucose 499 mg/dL (74-106) H* 11/25/23 21:04 11/25/23 POC Glucose 322 mg/dL (74-106) H 11/25/23 22:58 11/25/23 TSH 0.97 uIU/mL (0.358-3.74) 09/19/20 15:33 COAG PT 13.8 SECONDS (11.7-14.9) 03/16/18 01:53 Pre-Assessment Diagnosis/Proposed Procedure Planned Operative Procedure(s): COLONOSCOPY Anesthesia History 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 When Was Last Pacemaker Check QUESTION #4 FULL TEXT: You/Your Family Experience fever (hyperthermia) with Anesthesia Last Oral Intake Last Oral intake: Last Oral Intake NPO since 05:30 05/16/25 09:09 Meds taken in AM with sips of water? Meds patient instructed to take am of surgery PONV PONV - agricultural systems specialist: PONV - agricultural systems specialist Female No 05/11/25 16:01 HX of Motion Sickness No 05/11/25 16:01 HX of N/V After Surgery No 05/11/25 16:01 Non-Smoker Yes 05/11/25 16:01 Duration of Surgery greater No 05/11/25 16:01 than 60 minutes Number of Risk Factors 1 05/11/25 16:01 PONV Score Low Risk 05/11/25 16:01 Height & Weight Height & Weight: Anesthesia: Height & Weight Height 5 ft 11 in 05/16/25 09:09 Weight: 83 kg 05/16/25 09:09 Body Mass Index (BMI) 25.4 05/16/25 09:09 Respiratory Assessment Respiratory Assessment - agricultural systems specialist: Respiratory Tract Infection Hx - agricultural systems specialist Hx Respiratory Tract Infection No 05/11/25 16:01 STOP Sleep Apnea STOP Sleep Apnea - agricultural systems specialist: STOP Sleep Apnea - agricultural systems specialist Hx Hypertension No 05/11/25 16:01 Hx Sleep Apnea No 05/11/25 16:01 CPAP BIPAP Do you snore loudly (louder No 05/11/25 16:01 than talking or can be heard Do you often feel tired/ No 05/11/25 16:01 fatigued/ sleepy during daytime? Has anyone observed you stop No 05/11/25 16:01 breathing during sleep? STOP Results Negative 05/11/25 16:01 QUESTION #5 FULL TEXT : Do you snore loudly (louder than talking or can be heard through closed doors)? Tobacco Use History Tobacco Use History - agricultural systems specialist: Tobacco Use History - agricultural systems specialist Tobacco Use Smoking Status Current some day smoker 05/11/25 16:01 Hx Tobacco Use Yes 05/11/25 16:01 Years Smoking Packs Smoked per Day Smoking Cessation Date was within the last 15 years Hx Smoking Cessation Date Hx Smoking Cessation Counseling Hematologic Medial History Hematologic Hx - agricultural systems specialist: Hematologic Medical Hx - search developer Hx of Blood Transfusion No 05/11/25 16:01 Hx of Transfusion in last 3 No 05/11/25 16:01 Months Date of Last Transfusion (if within last 3 months) Ever experience any problems No 05/11/25 16:01 with transfusion(s)? Specify any problems Hx of Preganancy in last 3 N/A 05/11/25 16:01 Months Nurse Filling Out Transfusion [email or web address] 05/11/25 16:01 & Questions: Date: 05/11/25 05/11/25 16:01 Time: 16:04 05/11/25 16:01 Patient unable to answer at this time (ie. confused, unrespo /Reproduction History /Reproductive History - agricultural systems specialist: /Reproductive Hx- agricultural systems specialist Hx Now No 05/11/25 16:01 Gestational Age (in weeks): EDC: Hx Hx Para Hx Section SAB No 05/11/25 16:01 Active Medications Active Medications: Current Medications Generic Name Dose Route Start Last Admin Trade Name Freq PRN Reason Stop Dose Admin Lactated Ringer's 1,000 mls @ 15 mls/hr 05/16/25 09:00 05/16/25 09:17 IV 15 mls/hr .Q48H FE Administration PFSH Medical History (Updated 05/11/25 @ 16:10 by Rico Paniagua) History of stress test COVID-19 Contact with or suspected exposure to other viral communicable disease Diabetes Hypertension Head congestion Chest pain Home Medications ?Medication ?Instructions ?Recorded ?Last Taken ?Type c-pain cream 1 dose topical 04/10/25 Unkn own History metanx FC 1 dose PO 04/10/25 Unknown H istory Allergy/AdvReac Type Severity Reaction Status Date / Time bee venom protein (honey bee) Allergy Rash Verified 05/16/25 09:09 Family History (Updated 04/10/25 @ 13:59 by Yvette Man) Mother Diabetes Hypertension Breast cancer Brother Diabetes Hypertension Surgical History History of bunionectomy Social History (Updated 04/10/25 @ 14:00 by Yvette Man) Smoking Status: Current some day smoker tobacco type: smokeless tobacco Review of Systems (Anesthesia) ROS Narrative System reviewed and no additional complaints, except as documented. Physical Exam Const alert, oriented x3 and average body habitus Resp normal respiratory effort, normal air movement and clear to auscultation bilaterally Cardio regular rate, regular rhythm, no murmurs and diaphoretic 05/16/25 0936 <Electronically signed by Juanito Calix MD> Date _ Juanito Calix MD Cosigner Signature: Date CC: ~ Signed [facility] Work Phone: Consult note Author Bruno Swanson [facility] Note Date/Time May 16, 2025 10:2 0am [facility] Medical Records Department [address] [address] Anesthesia Postop Eval I 05/16/25 1019 MR#: [id number] Acct: [id number] Name: CINTHYA CARABALLO Rep #:[id number] : 1970 55 From: Bruno Swanson PCP: Dr. Adan Herring MD Status:REG SD C Y Race: C Location: [place] [address] Anesthesia: Postop Eval I Current Vital Signs Temperature: 98.4 F Pulse Rate: 76 Blood Pressure: 112/80 Respiratory Rate: 16 Pulse Ox: 98 Oxygen Delivery Method: Room Air Assessment Airway patent: Yes Spontaneous unlabored respirations: Yes Mental status: Asleep nausea: No Vomiting: No Anesthesia Complication: No Fluid Hydration Crystalloid volume administer (ml): 500 Total IV fluid infused: 500 Progress Note Anesthesia document: Postop Eval 1 completed: Yes 05/16/25 1020 <Electronically signed by Bruno Swanson > Date _ Bruno Watkins Signature: Date CC: ~ Signed [facility] Work Phone: Evaluation noteNo assessment information available [facility] Work Phone: History and physical note Author Arik Colorado [facility] Note Date/Time May 16, 2025 9:28 am [facility] Medical Records Department [address] [place] [address] History & Physical Exam 05/16/25 0928 MR#: [id number] Acct: [id number] Name: CINTHYA CARABALLO Rep #:[id number] : 1970 55 From: Arik tran MD PCP: Dr. Adan Herring MD Status:REG SD C Location: [place] [address] History and Physical Date of Admission: 05/16/25 Intake Vital Signs 11/25/2320:00 04/10/2514:00 Height 5 ft 11 in 5 ft [...] bee) Allergy (Verified 04/10/25 14:01) Rash Medications ?Medication ?Instructions ?Recorded ?Confirmed ?Type c-pain cream topical 04/10/25 04/10/25 History metanx [...] by Yvette Man) Mother Diabetes Hypertension Breast cancerBrother Diabetes Hypertension Social History (Updated 04/10/25 @ [...] headache(s), No lack of coordination, No loss ofvision, No memory loss, Yes numbness, No other visual disturbances, No radicularpain, No restless legs, No sensory deficit, No syncope, Yes tingling, No tremor(s), No weakness and No other Exam Const General: cooperative Orientation: alert and oriented x3 [facility] Head: normal to inspection Neck Neck: normal visual inspection and full ROM Chest Chest palpation & inspection: normal inspection of the chest Resp Effort & Inspection: normal respiratory effort Auscultation: clear to [...] has been having bowel movements every 3 to4 days when he used to be regular. I discussed performing a colonoscopy to evaluate as he has never had one. I explained endoscopy in detail to the patient. I explained the risks includingbut not limited to stroke or heart attack with anesthesia, perforation of the GItract, bleeding, infection. I explained that any of these could necessitate further emergency surgery. The patient understands and all questions were answered sufficiently. The patient wishes to proceed with procedure. Arik Colorado MD Pager: [facility] [address] [place] [address], [address] [place] [address] Office: I have examined the patient and the H&P has been reviewed. There are no clinicalchanges since date of exam. 05/16/25927 <Electronically signed by Arik Colorado MD> Cosigner Signature (if applicable): CC: Dr. Arik Colorado MD; Dr. Adan Herring MD~ Signed [facility] Work Phone: Hospital Discharge instructions Additional Instructions Avoid anti-inflammatory medications like ibuprofen or Aleve since your kidney numbers are a little abnormal and these can make them worse, you will need to follow-up so that you can have your kidney function rechecked to see if it is getting better or worse. Also need to follow- up to have your blood pressure rechecked since it was high today.[facility] Work Phone: Reason for referral (narrative)No reason for referral information availableWPro[facility] Work Phone: Summary Purpose Family History No Family History Records Found Relationship Condition Age at Onset Recorded Date/T grant Not Specified Diabetes mellitus Unknown Hypertension Unknown Relationship Condition Age at Onset Recorded Date/T grant mother Diabetes mellitus Unknown Hypertension Unknown Malignant neoplasm of breast Unknown brother Diabetes mellitus Unknown Advance Directives No Advanced Directives Records Found Advance Directive Response Recorded Date/ Time Living Will No December 30 4:25pm Power of Printed Circuit Board Reworker No December 30, 2021 4:25pm Advance Directive Response Recorded Date/ Time Living Will No December 30 3:25pm Power of Printed Circuit Board Reworker No December 30, 2021 3:25pm Advance Directive Response Recorded Date/ Time Living Will Yes November 25, 2 023 9:07pm Power of Printed Circuit Board Reworker Yes November 25, 2023 9:07pm Name of Medical Power of Printed Circuit Board Reworker November 25, 2023 9:07pm Advance Directive Response Recorded Date/ Time Name of Medical Power of Printed Circuit Board Reworker November 25, 2023 10:07pm Living Will Yes November 25, 2 023 10:07pm Power of Printed Circuit Board Reworker Yes November 25, 2023 10:07pm Advance Directive Response Recorded Date/ Time Do you have a Healthcare Power of Printed Circuit Board Reworker? Yes May 11, 2025 4:01pm Name of Medical Power of Printed Circuit Board Reworker May 11, 2025 4:01pm Chief Complaint and Reason for Visit Chief Complaint Hyperglycemia Chief Complaint Hyperglycemia CRAMP AND SPASM Chief Complaint Admit Date COLONOSCOPY, CONSTIPATION April 10, 2025 1:27pm Reason for Visit Admit Date Constipation April 10, 2025 1:27p m Additional Source Comments (unrecognized sect ion and content) No Status Records FoundNo Status Records Found INFORMATION SOURCE (unrecogn ized section and content) DATE CREATED AUTHOR 09/20/2018 [facility] DATE CREATED AUTHOR AUTHOR'S ORGANIZ ATION 10/04/2025 [facility] Goals (unrecognized section and content) Goals may [...] Provide r, Attending Provider, Referring Provider Active Team Status: Active Member Role Status Dates Adan Herring MD Primary Care Provider Active Team Status: Inactive Member Role Status Dates Adan Dykeske , MD Primary Care Provider Active St art: April 10, 2025 End: April 10, 2025 Adan Herring MD Referring Provider Active Start : April 10, 2025 End: April 10, 2025 Dr. Arik Colorado MD Attending Provider Active Start: April 10, 2025 End: April 10, 2025 Team Status: Inactive Member Role Status Sylvester Herring MD Primary Care Provider Active St art: May 16, 2025 End: May 16, 2025 Adan Herring MD Referring Provider Active Start : May 16, 2025 End: May 16, 2025 Dr. Arik Colorado MD Attending Provider Active Start: May 16, 2025 End: May 16, 2025 Team Status: Active Member Role Status Sylvester Herring MD Primary Care Provider Active St art: May 16, 2025 Adan Herring MD Referring Provider Active Start : May 16, 2025 Dr. Arik Colorado MD Attending Provider Active Start: May 16, 2025 Dr. Arik Colorado MD Other Provider Active Start: May 16, 2025 FOR RECORDS PERTAINING TO PATIENTS WHO ARE [...] BE BASED ON THE PRIMARY CLINICAL RECORDS. [employer] provides no warranty or guarantee of the accuracy or completeness of information in this document.
== END | disposition home or self-care (01) ==
PROVIDERS: PCP Family Medicine; Referring Provider Student in an Organized Health Care Education/Training Program; Visit Provider Student in an Organized Health Care Education/Training Program
DX: Z01.818 Encounter for other preprocedural examination (principal)
CPT/HCPCS: 93005

== ENCOUNTER → 2025-10-24 | Outpatient (CLI) | payer OTHER, SELFPAY ==
--- OUTSIDE RECORDS SUMMARY | 2025-10-24 07:12 | XMS RPT_ITS | CCD ---
Author Organization [facility] Care Team Providers Care Automation Clerk Name Role Phone MD Adan Herring Primary Care Provider [phone] MD Adan Herring Referring Provider Dr. Fausto Tejeda Attending Provider Nima ROSE, Adan Primary Care Provider Nima ROSE, Adan Referring Provider Miroslava ROSE, Dr. Elise Attending Provider [phone] Miroslava ROSE, Dr. Elise Other Provider [phone] Arik Colorado Attending Unavailable Nima, Chalon Primary Care Unavailable Nima, Chalon Referring Unavailable Spittle, Samir Attending Unavailable Spittle, Samir Referring Unavailable Nima, Chalon Primary Care Unavailable Spittle, Samir Attending Unavailable Spittle, Samir Referring Unavailable Nima, Chalon Primary Care Unavailable Arik [place] Attending Unavailable Nima, Chalon Primary Care Unavailable Nima, Chalon Referring Unavailable Arik Colorado Consulting Unavailable Arik [place] Attending Unavailable Nima, Chalon Primary Care Unavailable Nima, Chalon Referring Unavailable Allergies Allergy Classification Reported Allergen(s) Allergy Type Date of Onset Reaction(s) Facility (5 sources) bee venom protein (honey bee) Allergy to substance 08-16-2021 Rash [facility] (1 source) bee venom protein (honey bee) Drug allergy (disorder) 05-16-2025 [facility] Repository Medications Current Medications Medication Drug [...] TABLET PO EVERY 6 HOURS NEEDED 24 February 01, 2021 February 05, 2021 1:02am [...] Test Name Value Interpretation Reference Range Facility 12 Lead EKGon 10-11-2025 12 Lead EKG [facility] Cardiovascular Services [address] [place] [address] 12 Lead EKG 10/11/25 0759 MR#: [id number] Acct: [id number] Name: CINTHYA CARABALLO Rep #: [id number] : 1970 55 From: Jose M Soni MD Attending Dr: Dr. Samir Garcia DO Status: REG CLI Ordering Dr: Samir Garcia DO Date: 10/11/25 Location: [facility] Sex: M C Admitted: Test Reason : PREOP Blood Pressure : */* mmHG Vent. Rate : 66 BPM Atrial Rate : 66 BPM P-R Int : 120 ms QRS Dur : 88 ms QT Int : 420 ms P-R-T Axes : 9 35 51 degrees QTcB Int : 440 ms Normal sinus rhythm Normal ECG Confirmed by Jose M Soni ([id number]), scientific publications editor VJ GARCIA ([id number]) on 10/11/2025 10:42:34 AM Referred By: Samir Garcia Confirmed By: Jose M Soni 10/11/25 1042 Date Jose M Soni MD CC: Dr. Adan Herring MD; Dr. Samir Garcia DO Signed Normal [facility] Bedside Glucoseon 05-16-2025 [facility] GLU 241 mg/dL High 74-106 [facility] Comment on above: Result Comment: KARY AMBROSIO OF PATIENT CARE PER NURSING PROTOCOL Performed By: #### L 501.080 #### [facility] Laboratory [address] [place], [address] Colonoscopy Reporton 025 Colonoscopy Report [facility] Medical Records Department [address] [place] [address] Colonoscopy Report MR#: [id number] Acct: [id number] Name: CINTHYA CARABALLO Rep #: [id number] : 1970 55 From: Arik Colorado MD PCP: Dr. Adan Herring MD Status:[facility] Patient Name: Cinthya Caraballo Procedure Date: 05/16/2025 [...] screening purposes. Procedure Code(s): --- Professional --- 93583, Colonoscopy, flexible; diagnostic, including collection of specimen(s) by brushing or washing, when performed (separate procedure) Diagnosis Code(s): --- Professional --- R19.5, Other fecal abnormalities K59.00, Constipation, unspecified CPT copyright 2021 [employer]. All rights reserved. The codes documented in this report are preliminary and upon union carpenter review may be revised to meet current compliance requirements. Arik Colorado MD 05/16/2025 10:10:08 AM This report has been signed electronically. Number of Addenda: 0 Note Initiated On: 05/16/2025 9:35 AM 05/16/25 1021 Date Arik Colorado MD Cosigner Signature: Date (if indicated) CC: Dr. Arik Colorado MD; Dr. 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 Adan Herring MD Status:REG SDC Y Race: C Location: [place] [address] Anesthesia: Postop Eval I Current Vital Signs [...] Bruno Watkins Signature: Date CC: Signed Normal [facility] MR/[id number] 05-16-2025 [facility] Medical Records Department [address] [place] [address] Anesthesia Postop Eval II 05/16/25 1532 MR#: [id number] Acct: [id number] Name: CINTHYA CARABALLO Rep #: [id number] : 1970 55 From: Juanito Calix MD PCP: Dr. Adan Herring MD Status:[facility] Y Race: C Location: [place] Anesthesia Postop [...] Anesthesia Complication: No 05/16/25 1532 Date Juanito Curielignsalvatore Signature: Date CC: Signed Normal [facility] Surgery Visit Reporton 04-10 Surgery Visit Report [facility] [address] [place] [address] OFFICE VISIT Date of Service: 04/10/25 MR#: [id number] Acct: [id number] Name: CINTHYA CARABALLO Rep #: [id number] : 1970 Provider: Dr. Arik guzman MD Age/Sex: 55/M Location: [facility] Status: Signed Intake Vital Signs 11/25/23 [...] attack with (more content not included)... Normal [facility] Absolute lymphocyte countOrd ered By: Willie Kumar on 11-25-2023 Lymphocytes Auto (Unsp spec) [#/Vol] 1.77 10*3/uL 0.83-4.51 [facility] Basophil percentageOrdered B y: Willie Kumar on 11-25-2023 Basophil percentage 0 SEEN /hpf 0-5 [facility] Basophils/100 WBC (Bld) 0.5 % 0-1 [facility] Chloride [Moles/Vol] 100 mmol/L 98-107 [facility] Eosinophils/100 WBC (Bld) 2.2 % 0-5 [facility] Glucose [Mass/Vol] 499 mg/dL 74-106 [facility] Comment on above: Moderate Lipemia, Re sult may be falsely increased. Critical Result(s) Called at: 22:48:34 11/25/2023 by: SHERI RUIZ TO MMARTIN2. Results read back by same.Glucose result greater than or equal to 200 mg/dLsuggests DIABETES MELLITUS per A.D.A. criteria. Neutrophils (Bld) [#/Vol] 3.0 10*3/uL 2.0-7.7 [facility] Neutrophils/100 WBC (Bld) 54.5 % 47-70 [facility] Potassium [Moles/Vol] 3.9 mmol/L 3.5-5.1 [facility] Comment on above: Moderate Hemolysis, Result may be falsely increased. Sodium [Moles/Vol] 134 mmol/L 136-145 [facility] WBC (Bld) [#/Vol] 5.6 10*3/uL 4.4-11.0 [facility] Bilirubin Test strip Ql (U)O rdered By: Willie Kumar on 11-25-2023 Bilirubin Ql (U) Negative Negative [facility] Blood dallas cells detection b y light microscopyOrdered By: Willie Kumar on 11-25-2023 Dallas cells LM Ql (Bld) SCAN CRITERIA MET [facility] Blood erythrocytes count (nu mber/volume)Ordered By: Willie Kumar on 11-25-2023 RBC (Bld) [#/Vol] 4.68 10*6/uL 4.6-6.2 [facility] Blood hemoglobin measurement (mass/volume)Ordered By: Willie Kumar on 11-25-2023 Hemoglobin (Bld) [Mass/Vol] 15.8 g/dL 13.0-16.5 [facility] Blood lymphocytes/100 leukoc ytesOrdered By: Willie Kumar on 11-25-2023 Lymphocytes/100 WBC (Bld) 31.8 % 19-41 [facility] Blood monocytes/100 leukocyt esOrdered By: Willie Kumar on 11-25-2023 Monocytes/100 WBC (Bld) 9.7 % 0-10 [facility] Blood platelet adequacy dete ction by light microscopyOrdered By: Willie Kumar on 11-25-2023 Platelets LM Ql (Bld) ADEQUATE ADEQ [facility] Blood platelet mean volumeOr dered By: Willie Kumar on 11-25-2023 Platelet mean volume (Bld) [Entitic vol] 11.3 fL 6.2-12.0 [facility] Determination of erythrocyte mean corpuscular volume (MCV)Ordered By: Willie Kumar on 11-25-2023 MCV (RBC) [Entitic vol] 88.0 fL 80-94 [facility] Glucose Glucometer (BldC) [M ass/Vol]Ordered By: Willie Kumar on 11-25-2023 Glucose [Mass/Vol] 322 mg/dL 74-106 [facility] Comment on above: MANAGEMENT OF PATIEN T CARE PER NURSING PROTOCOL Hematocrit Auto (Bld) [Volum e fraction]Ordered By: Willie Kumar on 11-25-2023 Hematocrit (Bld) [Volume fraction] 41.2 % 40-54 [facility] Ketones Test strip Ql (U)Ord ered By: Willie Kumar on 11-25-2023 Ketones Ql (U) 5 mg/dl Negative [facility] Laboratory - Chemistry and C hemistry - challengeOrdered By: Willie Kumar on 11-25-2023 CO2 [Moles/Vol] 19.0 mmol/L 21.0-32.0 [facility] Urea nitrogen/Creatinine [Mass ratio] 8.7 mg/mg 10-20 [facility] Laboratory - Hematology and Cell countsOrdered By: Willie Kumar on 11-25-2023 Anisocytosis Ql (Bld) RARE [facility] Erythrocyte distribution width (RBC) [Entitic vol] 39.6 fL 35.1-43.9 [facility] Erythrocyte distribution width (RBC) [Ratio] 12.3 % 11.6-14.6 [facility] Immature granulocytes/100 WBC (Bld) 1.300 % 0.0-0.9 [facility] Comment on above: IG% - Immature Granu locytes (promyelocytes, myelocytes and metamyelocytes) > 1% indicates that a LEFT SHIFT is Present. MCH (RBC) [Entitic mass] 33.8 pg 27.0-32.0 [facility] Nucleated RBC/100 WBC (Bld) [Ratio] 0 % 0-5 [facility] MCHC Auto (RBC) [Mass/Vol]Or dered By: Willie Kumar on 11-25-2023 MCHC (RBC) [Mass/Vol] 38.3 g/dL 32-36 [facility] Mucus LM Ql (Urine sed)Order ed By: Willie Kumar on 11-25-2023 Mucus Ql (Urine sed) 0 SEEN /hpf [facility] Nitrite Test strip Ql (U)Ord ered By: Willie Kumar on 11-25-2023 Nitrite Ql (U) Negative Negative [facility] No Panel InformationOrdered By: Willie Kumar on 11-25-2023 Estimated Creatinine Clearance Calc 65.93 ml/min [facility] Estimated GFR (MDRD) Amer 69 mL/min >60 [facility] Comment on above: GFR Calc Estimated GFR (MDRD) Non-Af Amer 57 mL/min >60 [facility] Comment on above: Non- GFR Calc Platelets bldOrdered By: Dean Kumar on 11-25-2023 Platelets (Bld) [#/Vol] 164 10*3/uL 150-450 [facility] Protein Test strip Ql (U)Ord ered By: Willie Kumar on 11-25-2023 Protein Ql (U) Negative Negative [facility] RBC morphologyOrdered By: Carlos Enrique Kumar on 11-25-2023 RBC morphology finding Nom (Bld) N CHROM NORMAL NORM C&C [facility] Serum or plasma calcium topher urement (mass/volume)Ordered By: Willie Kumar on 11-25-2023 Calcium [Mass/Vol] 7.6 mg/dL 8.5-10.1 [facility] Comment on above: Moderate Lipemia, Re sult may be falsely decreased. Serum or plasma creatinine m easurement (mass/volume)Ordered By: Willie Kumar on 11-25-2023 Creatinine [Mass/Vol] 1.38 mg/dL 0.70-1.30 [facility] Comment on above: The validity of the calculated GFR & GFRAA in patients over 70 years has not been determined. Clinical correlation is essential. Serum or plasma urea nitroge n measurement (mass/volume)Ordered By: Willie Kumar on 11-25-2023 Urea nitrogen [Mass/Vol] 12 mg/dL 7-18 [facility] Squamous epithelial cells de tection in urine sediment by light microscopyOrdered By: Willie Kumar on 11-25-2023 Epithelial cells.squamous LM Ql (Urine sed) 0 SEEN /hpf 0-5 [facility] Thin prep Papanicolaou smear with manual screeningOrdered By: Willie Kumar on 11-25-2023 Thin prep Papanicolaou smear with manual screening 15 5-15 [facility] Urine blood detectionOrdered By: Willie Kumar on 11-25-2023 RBC Ql (U) Negative Negative [facility] RBC Ql (U) 0 SEEN /hpf 0-5 [facility] Urine clarityOrdered By: Dean Kumar on 11-25-2023 Clarity (U) Clear Clear [facility] Urine color determinationOrd ered By: Willie Kumar on 11-25-2023 Color (U) Yellow Yellow [facility] Urine glucose detectionOrder ed By: Willie Kumar on 11-25-2023 Glucose Ql (U) 1000 mg/dl Normal [facility] Urine leukocyte esterase det ection by dipstickOrdered By: Willie Kumar on 11-25-2023 Leukocyte esterase Test strip Ql (U) Negative Negative [facility] Urine pHOrdered By: Willie Kumar on 11-25-2023 pH (U) 6.0 [pH] 5.0 - 8.0 [facility] Urine sediment bacteria coun t by microscopy (number/high power field)Ordered By: Willie Kumar on 11-25-2023 Bacteria LM.HPF (Urine sed) [#/Area] 0 /[HPF] None Seen [facility] Urine specific gravity measu rementOrdered By: Willie Kumar on 11-25-2023 Specific gravity (U) [Rel density] 1.010 1.002-1.030 [facility] Urobilinogen Auto test strip Ql (U)Ordered By: Willie Kumar on 11-25-2023 Urobilinogen Ql (U) Normal mg/dl Normal [facility] Absolute lymphocyte countOrd ered By: Dr. Bishop on 01-30-2023 Lymphocytes Auto (Unsp spec) [#/Vol] 1.67 10*3/uL 0.83-4.51 [facility] Basophil percentageOrdered B y: Dr. Bishop on 01-30-2023 Basophils/100 WBC (Bld) 0.5 % 0-1 [facility] Bilirubin [Mass/Vol] 0.90 mg/dL 0.20-1.00 [facility] Comment on above: For patients on eltr ombopag therapy, use of Dimension [place] TBIL is not recommended. Chloride [Moles/Vol] 104 mmol/L 98-107 [facility] Cholesterol [Mass/Vol] 132 mg/dL <200 [facility] Comment on above: <200 mg/dL Desirable 200-240 mg/dL Borderline >240 mg/dL High Risk Eosinophils/100 WBC (Bld) 3.1 % 0-5 [facility] Glucose [Mass/Vol] 183 mg/dL 74-106 [facility] Comment on above: Fasting Glucose resu lt greater than or equal to 126 mg/dL suggests DIABETES MELLITUS per A.D.A. criteria. Neutrophils (Bld) [#/Vol] 3.4 10*3/uL 2.0-7.7 [facility] Neutrophils/100 WBC (Bld) 56.7 % 47-70 [facility] Potassium [Moles/Vol] 3.8 mmol/L 3.5-5.1 [facility] Protein [Mass/Vol] 7.1 g/dL 6.4-8.2 [facility] Sodium [Moles/Vol] 140 mmol/L 136-145 [facility] Triglyceride [Mass/Vol] 144 mg/dL <199 [facility] Comment on above: The drugs N-Acetylcy steine and Metamizole may falsely depress this assay.Serum Triglycerides Reference Interval Normal <150 mg/dL Borderline high 150 - 199 mg/dL High 200 - 499 mg/dL Very High > or = 500 mg/dL WBC (Bld) [#/Vol] 5.9 10*3/uL 4.4-11.0 [facility] Bilirubin Test strip Ql (U)O rdered By: Dr. Bishop on 01-30-2023 Bilirubin Ql (U) Negative Negative [facility] Blood erythrocytes count (nu mber/volume)Ordered By: Dr. Bishop on 01-30-2023 RBC (Bld) [#/Vol] 5.02 10*6/uL 4.6-6.2 [facility] Blood hemoglobin measurement (mass/volume)Ordered By: Dr. Bishop on 01-30-2023 Hemoglobin (Bld) [Mass/Vol] 16.3 g/dL 13.0-16.5 [facility] Blood lymphocytes/100 leukoc ytesOrdered By: Dr. Bishop on 01-30-2023 Lymphocytes/100 WBC (Bld) 28.3 % 19-41 [facility] Blood monocytes/100 leukocyt esOrdered By: Dr. Bishop on 01-30-2023 Monocytes/100 WBC (Bld) 11.2 % 0-10 [facility] Blood platelet mean volumeOr dered By: Dr. Bishop on 01-30-2023 Platelet mean volume (Bld) [Entitic vol] 10.8 fL 6.2-12.0 [facility] Determination of erythrocyte mean corpuscular volume (MCV)Ordered By: Dr. Bishop on 01-30-2023 MCV (RBC) [Entitic vol] 89.4 fL 80-94 [facility] Erythrocyte sedimentation ra teOrdered By: Dr. Bishop on 01-30-2023 ESR (Bld) [Velocity] 8 mm/h 0-20 [facility] Hematocrit Auto (Bld) [Volum e fraction]Ordered By: Dr. Bishop on 01-30-2023 Hematocrit (Bld) [Volume fraction] 44.9 % 40-54 [facility] Ketones Test strip Ql (U)Ord ered By: Dr. Bishop on 01-30-2023 Ketones Ql (U) 5 mg/dl Negative [facility] Laboratory - Chemistry and C hemistry - challengeOrdered By: Dr. Bishop on 01-30-2023 ALP [Catalytic activity/Vol] 94 U/L 45-117 [facility] ALT [Catalytic activity/Vol] 47 U/L 16-61 [facility] CK [Catalytic activity/Vol] 194 U/L 39-308 [facility] CO2 [Moles/Vol] 27.0 mmol/L 21.0-32.0 [facility] Globulin (S) [Mass/Vol] 3.3 g/dL 2.2-4.2 [facility] Urea nitrogen/Creatinine [Mass ratio] 16.6 mg/mg 10-20 [facility] Laboratory - Hematology and Cell countsOrdered By: Dr. Bishop on 01-30-2023 Erythrocyte distribution width (RBC) [Entitic vol] 40.7 fL 35.1-43.9 [facility] Erythrocyte distribution width (RBC) [Ratio] 12.5 % 11.6-14.6 [facility] Immature granulocytes/100 WBC (Bld) 0.200 % 0.0-0.9 [facility] Comment on above: IG% - Immature Granu locytes (promyelocytes, myelocytes and metamyelocytes) > 1% indicates that a LEFT SHIFT is Present. MCH (RBC) [Entitic mass] 32.5 pg 27.0-32.0 [facility] Nucleated RBC/100 WBC (Bld) [Ratio] 0 % 0-5 [facility] MCHC Auto (RBC) [Mass/Vol]Or dered By: Dr. Bishop on 01-30-2023 MCHC (RBC) [Mass/Vol] 36.3 g/dL 32-36 [facility] Nitrite Test strip Ql (U)Ord ered By: Dr. Bishop on 01-30-2023 Nitrite Ql (U) Positive Negative [facility] No Panel InformationOrdered By: Dr. Bishop on 01-30-2023 Estimated GFR (MDRD) Amer 105 mL/min >60 [facility] Comment on above: GFR Calc Estimated GFR (MDRD) Non-Af Amer 87 mL/min >60 [facility] Comment on above: Non- GFR Calc Prostate Specific Antigen Screen 0.61 ng/mL 0.00-4.00 [facility] Comment on above: This test was perfor med using the TPSA assay method for the[facility] chemistry system. Values obtained with differentassay methods cannot be used interchangably.When changing PSA assays in the course of monitoring apatient, additional sequential testing should be carriedout to confirm baseline values. Urine Microalbumin/Creatinine Ratio 9.4 mg/g CRE <30 [facility] Platelets bldOrdered By: Dr. Bishop on 01-30-2023 Platelets (Bld) [#/Vol] 200 10*3/uL 150-450 [facility] Protein Test strip Ql (U)Ord ered By: Dr. Bishop on 01-30-2023 Protein Ql (U) 30 mg/dl Negative [facility] Serum or plasma C reactive p rotein measurement (mass/volume)Ordered By: Dr. Bishop on 01-30-2023 CRP [Mass/Vol] mg/L 0.0-3.0 [facility] Comment on above: C-Reactive Protein ( CRP) provides useful information for thediagnosis, therapy and monitoring of inflammatory processesand associated diseases. For the evaluation of Relative Riskfor Cardiovascular Disease, a High Sensitivity CRP (HSCRP)should be ordered. Serum or plasma albumin topher urement (mass/volume)Ordered By: Dr. Bishop on 01-30-2023 Albumin [Mass/Vol] 3.8 g/dL 3.2-5.0 [facility] Serum or plasma albumin/glob ulin mass ratioOrdered By: Dr. Bishop on 01-30-2023 Albumin/Globulin [Mass ratio] 1.2 {ratio} 0.9-2.4 [facility] Serum or plasma calcium topher urement (mass/volume)Ordered By: Dr. Bishop on 01-30-2023 Calcium [Mass/Vol] 8.8 mg/dL 8.5-10.1 [facility] Serum or plasma cholesterol in HDL measurement (mass/volume)Ordered By: Dr. Bishop on 01-30-2023 Cholesterol in HDL [Mass/Vol] 31 mg/dL >40 [facility] Comment on above: The drugs N-Acetylcy steine and Metamizole may falsely depress this assay. Reference Range HDL <40 mg/dL Low HDL Cholesterol HDL >or= 60 mg/dL High HDL Cholesterol Serum or plasma cholesterol in VLDL measurement (mass/volume)Ordered By: Dr. Bishop on 01-30-2023 Cholesterol in VLDL [Mass/Vol] 29 mg/dL 5-40 [facility] Serum or plasma creatinine m easurement (mass/volume)Ordered By: Dr. Bishop on 01-30-2023 Creatinine [Mass/Vol] 0.97 mg/dL 0.70-1.30 [facility] Comment on above: The validity of the calculated GFR & GFRAA in patients over 70 years has not been determined. Clinical correlation is essential. Serum or plasma low density lipoprotein (LDL) cholesterol measurement (mass/volume)Ordered By: Dr. Bishop on 01-30-2023 Cholesterol in LDL [Mass/Vol] 72 mg/dL 0-130 [facility] Serum or plasma urea nitroge n measurement (mass/volume)Ordered By: Dr. Bishop on 01-30-2023 Urea nitrogen [Mass/Vol] 16 mg/dL 7-18 [facility] Thin prep Papanicolaou smear with manual screeningOrdered By: Dr. Bishop on 01-30-2023 Thin prep Papanicolaou smear with manual screening 41 U/L 15-37 [facility] Thin prep Papanicolaou smear with manual screening 9 5-15 [facility] Thin prep Papanicolaou smear with manual screening 20.9 mg/L NO RANGE EST. [facility] Urine blood detectionOrdered By: Dr. Bishop on 01-30-2023 RBC Ql (U) Negative Negative [facility] Urine clarityOrdered By: Dr. Bishop on 01-30-2023 Clarity (U) Clear Clear [facility] Urine color determinationOrd ered By: Dr. Bishop on 01-30-2023 Color (U) SEE COMMENT BELOW Yellow [facility] Comment on above: Visual Urine Color: PINK Urine creatinine measurement (mass/volume)Ordered By: Dr. Bishop on 01-30-2023 Creatinine (U) [Mass/Vol] 223.00 mg/dL NO RANGE EST. [facility] Urine glucose detectionOrder ed By: Dr. Bishop on 01-30-2023 Glucose Ql (U) 50 mg/dl Normal [facility] Urine leukocyte esterase det ection by dipstickOrdered By: Dr. Bishop on 01-30-2023 Leukocyte esterase Test strip Ql (U) 25 /ul Negative [facility] Urine pHOrdered By: Dr. Gary beltran on 01-30-2023 pH (U) 5.0 [pH] 5.0 - 8.0 [facility] Urine specific gravity measu rementOrdered By: Dr. Bishop on 01-30-2023 Specific gravity (U) [Rel density] 1.025 1.002-1.030 [facility] Urobilinogen Auto test strip Ql (U)Ordered By: Dr. Bishop on 01-30-2023 Urobilinogen Ql (U) Normal mg/dl Normal [facility] Whole blood hemoglobin A1c/t otal hemoglobin ratio (mass fraction)Ordered By: Dr. Bishop on 01-30-2023 HbA1c (Bld) [Mass fraction] 6.4 % 3.8-5.6 [facility] Comment on above: Normal < 5.7 % Predi abetic 5.7 - 6.4 % Diabetic >or= 6.5 % Please note range changes. Absolute lymphocyte counton 05-02-2022 Lymphocytes Auto (Unsp spec) [#/Vol] 1.82 10*3/uL 0.83-4.51 [facility] Work Phone: [phone] Basophil percentageon 2021 Basophils/100 WBC (Bld) 0.4 % 0-1 [facility] Work Phone: Chloride [Moles/Vol] 106 mmol/L 98-107 [facility] Work Phone: Eosinophils/100 WBC (Bld) 2.2 % 0-5 [facility] Work Phone: [phone] Glucose [Mass/Vol] 190 mg/dL 74-106 [facility] Work Phone: Comment on above: Fasting Glucose resu lt greater than or equal to 126 mg/dL suggests DIABETES MELLITUS per A.D.A. criteria. Neutrophils (Bld) [#/Vol] 4.1 10*3/uL 2.0-7.7 [facility] Work Phone: Neutrophils/100 WBC (Bld) 60.7 % 47-70 [facility] Work Phone: Potassium [Moles/Vol] 3.6 mmol/L 3.5-5.1 [facility] Work Phone: Comment on above: Slight Hemolysis, Re sult may be falsely increased. Sodium [Moles/Vol] 139 mmol/L 136-145 [facility] Work Phone: WBC (Bld) [#/Vol] 6.8 10*3/uL 4.4-11.0 [facility] Work Phone: Blood erythrocytes count (nu mber/volume)on 05-02-2022 RBC (Bld) [#/Vol] 5.12 10*6/uL 4.6-6.2 [facility] Work Phone: Blood hemoglobin measurement (mass/volume)on 05-02-2022 Hemoglobin (Bld) [Mass/Vol] 16.3 g/dL 13.0-16.5 [facility] Work Phone: Blood lymphocytes/100 leukoc yteson 05-02-2022 Lymphocytes/100 WBC (Bld) 26.7 % 19-41 [facility] Work Phone: Blood monocytes/100 leukocyt eson 05-02-2022 Monocytes/100 WBC (Bld) 9.4 % 0-10 [facility] Work Phone: Blood platelet mean volumeon 05-02-2022 Platelet mean volume (Bld) [Entitic vol] 12.2 fL 6.2-12.0 [facility] Work Phone: Determination of erythrocyte mean corpuscular volume (MCV)on 05-02-2022 MCV (RBC) [Entitic vol] 88.7 fL 80-94 [facility] Work Phone: Hematocrit Auto (Bld) [Volum e fraction]on 05-02-2022 Hematocrit (Bld) [Volume fraction] 45.4 % 40-54 [facility] Work Phone: Laboratory - Chemistry and C hemistry - challengeon 05-02-2022 CO2 [Moles/Vol] 27.0 mmol/L 21.0-32.0 [facility] Work Phone: Urea nitrogen/Creatinine [Mass ratio] 13.2 mg/mg 10-20 [facility] Work Phone: Laboratory - Hematology and Cell countson 05-02-2022 Erythrocyte distribution width (RBC) [Entitic vol] 41.3 fL 35.1-43.9 [facility] Work Phone: Erythrocyte distribution width (RBC) [Ratio] 12.7 % 11.6-14.6 [facility] Work Phone: Immature granulocytes/100 WBC (Bld) 0.600 % 0.0-0.9 [facility] Work Phone: Comment on above: IG% - Immature Granu locytes (promyelocytes, myelocytes and metamyelocytes) > 1% indicates that a LEFT SHIFT is Present. MCH (RBC) [Entitic mass] 31.8 pg 27.0-32.0 [facility] Work Phone: Nucleated RBC/100 WBC (Bld) [Ratio] 0 % 0-5 [facility] Work Phone: MCHC Auto (RBC) [Mass/Vol]on 05-02-2022 MCHC (RBC) [Mass/Vol] 35.9 g/dL 32-36 [facility] Work Phone: No Panel Informationon 05-02 Estimated GFR (MDRD) Amer 94 mL/min >60 [facility] Work Phone: Comment on above: GFR Calc Estimated GFR (MDRD) Non-Af Amer 78 mL/min >60 [facility] Work Phone: Comment on above: Non- GFR Calc Platelets bldon 05-02-2022 Platelets (Bld) [#/Vol] 220 10*3/uL 150-450 [facility] Work Phone: Serum or plasma calcium topher urement (mass/volume)on 05-02-2022 Calcium [Mass/Vol] 9.3 mg/dL 8.5-10.1 [facility] Work Phone: Serum or plasma creatinine m easurement (mass/volume)on 05-02-2022 Creatinine [Mass/Vol] 1.06 mg/dL 0.70-1.30 [facility] Work Phone: Comment on above: The validity of the calculated GFR & GFRAA in patients over 70 years has not been determined. Clinical correlation is essential. Serum or plasma urea nitroge n measurement (mass/volume)on 05-02-2022 Urea nitrogen [Mass/Vol] 14 mg/dL 7-18 [facility] Work Phone: Thin prep Papanicolaou smear with manual screeningon 05-02-2022 Thin prep Papanicolaou smear with manual screening 6 5-15 [facility] Work Phone: PROGRESSon 08-23-2018 Protein mass conc HNO ID: [id number]: Jessica Mccarthy [facility]: (none)Author Type: (none)Type: Progress NotesFiled: 08/23/2018 2:13 [...] to get donewhenever, if he'd like. Normal [facility] Protein mass conc HNO ID: [id number] Author: Jessica Mccarthy Cma Service: (none) Author Type: (none) Type: Progress Notes Filed: 08/23/2018 2:13 PM Note Text: Left message for patient to return call #[phone] Normal [facility] CNPTOUTREACHon 08-18-2018 [facility] (INTMWS) CINTHYA CARABALLO ([id number]) 1970 M CHTDate Time Provider Department08/18/18 JESSICA MCCARTHY (PHIL) INTMWS During your visit today, we recorded the following information about you:Jessica Mccarthy Cma 08/23/2018 2:13 PM Signed PHMA TEAMLET DOCUMENTATIONProvider [...] increased Triglycerides. See LDL-Chol,Direct.-------- --Triglyceride (mg/dL)Date Value02/28/2015 64383 1130 HGB A1C:Lab ResultsComponent Value [id number] 5.1 02/07/2015TSH:TSH (uU/mL)Date Value05/21/2015 2.29617 1.070 )Care Gap: HypertriglycereidemiaIFG Plan:? Confirm PCP / Status - unknown? Type of appointment needed: Physical next available? Consultation Appointments: n/aLabs, HM and Immunization:Health Maintenance Due:DIABETES SCREEN due on 05/21/2018 - order pendingPROMISE(1) due on 07/31/2018Smamiejoseph Mccarthy [facility] 08/23/2018 2:13 PM SignedMyChart message sent.Jessica Mccarthy [facility] 08/23/2018 2:13 PM SignedLeft message for patient to return call #[phone] Mccarthy [facility] 08/23/2018 2:13 PM SignedI called Cinthya and [...] Wasserman LPN - Fully AssessedReason for Visit: [facility]/Care Gap Outreach [3605]Primary Visit Diagnosis:Encounter for screening for diabetes mellitus [Z13.1] Other Visit Diagnoses:Screening, lipid [Z13.220] Impaired fasting glucose [R73.01] Chronic hepatitis C without hepatic coma (HCC) [B18.2]Order(s):LIPID PANEL BASIC [SQLIPB] Order #: [id number] FUTURE HGB A1C [JLJMS0Z] Order #: [id number] FUTURE COMP METABOLIC PANEL [SQCMP] Order #: [id number] FUTUREPrescriptions as of 08/18/2018 Sig: FENOFIBRATE 160 MG TABLET Take 1 tablet by mouth once d* LEDIPASVIR 90 MG-SOFOSBUVIR 4* Take 1 tablet by mouth once d*Problem List As Of Date 08/18/2018 Noted Resolved Hypertriglyceridemia [E78.1] INVALID FOR* Impaired fasting glucose [R73.01] INVALID FOR* Hepatitis C, chronic (HCC) [B18.2] INVALID FOR* Status:Closed by JESSICA MCCARTHY CMA on 08/23/18 [facility] PROGRESSon 08-18-2018 Protein mass conc HNO ID: [id number] Author: Jessica Mccarthy Cma Service: (none) Author Type: (none) Type: Progress Notes Filed: 08/23/2018 2:13 PM Note Text: MyChart message sent. Normal [facility] Protein mass conc HNO ID: [id number]: Jessica Mccarthy CmaService: (none)Author Type: (none)Type: Progress [...] Triglycerides. SeeLDL-Chol, Direct. Triglyc eride (mg/dL)Date Value02/28/2015 3646902/07/2015 1130 HGB A1C:Lab ResultsComponent Value [id number] 5.1 02/07/2015TSH:TSH (uU/mL)Date Value05/21/2015 2.0327702/28/2015 1.070 )Care Gap: HypertriglycereidemiaIFG Plan:? Confirm PCP / Status - unknown? Type of appointment needed: Physical next available? Consultation Appointments: n/aLabs, HM and Immunization:Health Maintenance Due:DIABETES SCREEN due on 05/21/2018 - order pendingINFLUEGinoZA(1) due on 07/31/2018Miranda Fabio [employer] Normal [facility] Vital Signs Date Time Vital Sign Value Performing Clinician Donniei gisselle 05-16-2025 10:51-0400 Body temperature 98.9 [degF] Adan Herring MD Work Phone: [facility] 05-16-2025 10:51-0400 Diastolic blood pressure 82 mm[Hg] Adan Herring MD Work Phone: [facility] 05-16-2025 10:51-0400 Heart rate 73 /min Adan Herring MD Work Phone: [facility] 05-16-2025 10:51-0400 Respiratory rate 16 /min Adan Herring MD Work Phone: [facility] 05-16-2025 10:51-0400 SaO2% (BldA) [Mass fraction] 99 % Adan Herring MD Work Phone: [facility] 05-16-2025 10:51-0400 Systolic blood pressure 112 mm[Hg] Adan Herring MD Work Phone: 9(622)973-596874 [place] [address] 05-16-2025 09:09-0400 Body height 180.34 cm Adan Herring MD Work Phone: 7(084)634-645974 [place] [address] 05-16-2025 09:09-0400 Body mass index (BMI) [Ratio] 25.4 kg/m2 Adan Herring MD Work Phone: 1(176)755-367774 [place] [address] 05-16-2025 09:09-0400 Body weight 83 kg Adan Herring MD Work Phone: 8(047)449-565874 [place] [address] 04-10-2025 14:00-0400 Body mass index (BMI) [Ratio] 27 kg/m2 Adan Herring MD Work Phone: 8(073)165-748274 [place] [address] 04-10-2025 14:00-0400 Body weight 87.99 kg Adan Herring MD Work Phone: 6(230)320-490474 [place] [address] 04-10-2025 14:00-0400 Diastolic blood pressure 93 mm[Hg] Adan Herring MD Work Phone: 6(875)054-856974 [place] [address] 04-10-2025 14:00-0400 Heart rate 74 /min Adan Herring MD Work Phone: [facility] 04-10-2025 14:00-0400 Respiratory rate 17 /min Adan Herring MD Work Phone: 7(724)666-213674 [place] [address] 04-10-2025 14:00-0400 SaO2% (BldA) [Mass fraction] 98 % Adan Herring MD Work Phone: 3(206)673-837074 [place] [address] 04-10-2025 14:00-0400 Systolic blood pressure 143 mm[Hg] Adan Herring MD Work Phone: [facility] 11-26-2023 00:50-0500 Diastolic blood pressure 98 mm[Hg] [facility] 11-26-2023 00:50-0500 Heart rate 79 /min [facility] 11-26-2023 00:50-0500 Respiratory rate 18 /min [facility] 11-26-2023 00:50-0500 SaO2% (BldA) [Mass fraction] 97 % [facility] 11-26-2023 00:50-0500 Systolic blood pressure 136 mm[Hg] [facility] 11-25-2023 20:00-0500 Body height 180.34 cm [facility] 11-25-2023 20:00-0500 Body mass index (BMI) [Ratio] 27.3 kg/m2 [facility] 11-25-2023 20:00-0500 Body temperature 97.6 [degF] [facility] 11-25-2023 20:00-0500 Body weight 88.9 kg [facility] Encounters Encounter Date Encounter Type Care Provider Facility Start: 10-11-2025 Encounter for other preprocedural examination [facility] Start: 10-11-2025 ambulatory [facility] Start: 05-16-2025 Non-patient / Non-visit Dr. Raeann Colorado MD -[facility] Start: 05-16-2025 End: 05-16-2025 Admission to same day surgery center Dr. Arik Colorado MD -Endoscopy Work Phone: Start: 05-16-2025 End: 05-16-2025 ambulatory Adan Herring MD Work Phone: [facility] Work Phone: Start: 04-10-2025 End: 04-10-[address] Arik Colorado MD -[facility] Work Phone: Start: 04-10-2025 End: 04-10-2025 ambulatory Arik Colorado Facility:[facility] Start: 02-04-2024 Non-patient / Non-visit MD Michelle Herring Work Phone: [facility] Start: 02-04-2024 End: 02-04-2024 ambulatory MD Adan Herring Work Phone: [facility] Work Phone: Start: 02-04-2024 End: 02-04-2024 Patient encounter procedure MD Adan Herring Work Phone: [facility]-Cardiovascula r Services Work Phone: Start: 11-25-2023 End: 11-26-2023 Emergency department patient visit [facility]-Emergency Department Work Phone: Start: 01-30-2023 End: 01-30-2023 ambulatory [facility] Work Phone: Start: 01-30-2023 End: 01-30-2023 Patient encounter procedure [facility]-Laboratory, [place] [facility] Start: 05-02-2022 End: 05-02-2022 Patient encounter procedure [facility]-Laboratory, [place] Procedures Date Procedure Procedure Detail Performing Clinician Start: 05-16-2025 Colonoscopy Adan anderson MD Work Phone: Plan of Treatment Date Care Activity Detail Author Start: 05-16-2025 Patient discharge [facility] Start: 11-26-2023 [facility] Antibody to lupus [place] protein measurement [facility] Antibody to SS-A measurement [facility] Centromere protein B Ab [Units/volume] in Serum [facility] Chromatin Ab [Units/volume] in Serum or Plasma [facility] Colonoscopy [facility] DNA double strand Ab [Units/volume] in Serum [facility] Martha-1 extractable nuclear Ab [Units/volume] in Serum [facility] Nuclear Ab [Presence ] in Serum [facility] Patient Education ED Diabetic Hyperglycem ia [facility] Work Phone: Patient referral [facility] Work Phone: SCL-70 extractable nuclear Ab [Units/volume] in Serum by Immunoassay [facility] Palomares extractable nuclear Ab [Presence] in Serum [facility] Payers Date Payer Category Payer Self-pay [id number] [id number] Unknown [id number] Private Health Insurance [place] [id number] Private Health Insurance [employer] [facility] [id number] Unknown [id number] Unknown [employer] [place] [id number] Unknown [id number] Unknown [id number] Unknown [id number] Unknown [id number] Unknown [id number] Social History Date Type Detail Facility Start: 12-30-2021 End: 11-25-2023 Tobacco smoking status NHIS Unknown if ever smoked [facility] Start: 01-28-2021 [facility] Start: 1970 Sex Assigned At Male [facility] Start: 05-11-2025 Tobacco smoking stat us MNIS Current some day smoker [facility] Medical Equipment Procedure Code Equipment Code [...] Facility 05-16-2025 Cognitive function Touch/Shaking;Light Pa in [facility] Work Phone: 11-25-2023 Cognitive function Level Of Cons ciousness Awake;Alert;Appropriate;Follow s Commands [facility] Work Phone: Clinical Notes 11-25-2023 to 05-16-2025 Note Date & Type Note Facility 05-16-2025 Procedure note [facility] 05-16-2025 Procedure note [facility] 05-16-2025 Consult note [facility] 05-16-2025 Consult note [facility] 05-16-2025 History and physi geeta note [facility] 05-16-2025 Note [facility] Medical Records Department [address] [place] [address] History Physical Exam 05/16/25 0928 MR#: [id number] Acct: [id number] Name: CINTHYA CARABALLO Rep #: [id number] : 1970 55 From: Arik Colorado MD PCP: Dr. Adan Herring MD Status:[facility] Location: [place] [address] History and Physical Date of Admission: 05/16/25 [...] stroke or he (more content not included)... [facility] 04-10-2025 Evaluation note Diagnosis Onset Date Resolution Constipation acute April 10 1:27pm [facility] Work Phone: [phone]) 336-435412-27-2023 Discharge summary Author Willie Kumar [facility] November 26, 2023 12:23am Note Date/Time November 25, 2023 9:03pm [facility] Medical Records Department [address] [place] [address] Emergency Department Summary 11/25/23 MR#: [id number] Acct: [id number] Name: CINTHYA CARABALLO Rep #:[id number] : 1970 53 From: Willie Kumar MD [...] for this that he can think of. PFSH PFS Medical History Diabetes Hypertension Hypertension Home Medications [...] % (Auto) 54.5 Lymph % (Auto) 31.8 Dukes % (Auto) 9.7 Eos % (Auto) 2.2 [...] Clarity Clear Urine pH 6.0 Ur Specific [place] 1.010 Urine Protein Negative Urine Glucose (UA) [...] (Auto) Neut % (Auto) Lymph % (Auto) Dukes % (Auto) Eos % (Auto) Baso % (Auto) Absolute Neuts (auto) Absolute Lymphs (auto) Nucleated RBC % Platelet Estimate RBC Morphology Anisocytosis [place] Cells Sodium Potassium Chloride Carbon Dioxide Anion Gap BUN Creatinine Estim Creat Clear Calc Est GFR (MDRD) Af Amer Est GFR (MDRD) Non-Af BUN/Creatinine Ratio Glucose Calcium Urine Color Urine Clarity Urine pH Ur Specific [place] Urine Protein Urine Glucose (UA) Urine Ketones [...] your Primary Care Provider. Call [facility] ([phone]) or report to the closest Emergency Room. Call 911 if necessary. 11/26/2322 <Electronically signed by Willie Kumar MD> Cosigner Signature (if applicable): CC: Dr. Garrison Bishop DO ~ Signed [facility] Work Phone: Consult note Author Juanito Calix [facility] Note Date/Time May 16, 2025 9:36 am [facility] Medical Records Department [address] [place] [address] Pre-Anesthesia Evaluation 05/16/25921 MR#: [id number] Acct: [id number] Name: CINTHYA CARABALLO Rep #:[id number] : 1970 55 From: Juanito Calix MD PCP: Dr. 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 Hx Hospitalization No 05/11/25 16:01 Any Problems [...] take am of surgery PONV 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 Female No 05/11/25 16:01 HX of Motion [...] 05/16/25 09:09 Respiratory Assessment Respiratory Assessment - 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: Respiratory Tract Infection Hx - 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 Hx Respiratory Tract Infection No 05/11/25 16:01 STOP Sleep Apnea STOP Sleep Apnea - 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: STOP Sleep Apnea - 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 Hx Hypertension No 05/11/25 16:01 Hx Sleep [...] Tobacco Use History 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: 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 Tobacco Use Smoking Status Current some day smoker 05/11/25 16:01 Hx Tobacco Use Yes 05/11/25 16:01 Years Smoking Packs Smoked per Day Smoking Cessation Date was within the last 15 years Hx Smoking Cessation Date Hx Smoking Cessation Counseling Hematologic Medial History Hematologic Hx - 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: 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 Hx of Blood Transfusion No 05/11/25 16:01 [...] confused, unrespo /Reproduction History /Reproductive History - 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 Adan Herring MD Status:REG SD C Y Race: C Location: [place] [address] Anesthesia: Postop Eval I Current Vital Signs [...] by Bruno Swanson > Date _ Bruno Curielignsalvatore Signature: Date CC: ~ Signed [facility] Work Phone: Evaluation noteNo assessment information available [facility] Work Phone: History and physical note Author Arik Colorado [facility] Note Date/Time May 16, 2025 9:28 am [facility] Medical Records Department [address] [place] [address] History & Physical Exam 05/16/25927 MR#: [id number] Acct: [id number] Name: CINTHYA CARABALLO Rep #:[id number] : 1970 55 From: Arik tran MD PCP: Dr. Adan Herring MD Status:REG SD C Location: [place] [address] History and Physical Date of Admission: 05/16/25 [...] proceed with procedure. Arik Colorado MD Pager: [facility] [address] [place] [address], [address] [place] [address] Office: I have examined the patient and the H&P has been reviewed. There are no clinicalchanges since date of exam. 05/16/25 0928 <Electronically signed by Arik Colorado MD> Cosigner Signature (if applicable): CC: Dr. rAik Colorado MD; Dr. Adan Herring MD~ Signed [facility] Work Phone: Hospital Discharge instructions Additional Instructions [...] blood pressure rechecked since it was high today.[facility] Work Phone: Reason for referral (narrative)No reason for referral information availableW[facility] Work Phone: Summary Purpose Family History No [...] Will No December 30 4:25pm Power of Location Director No December 30, 2021 4:25pm Advance Directive Response Recorded Date/ Time Living Will No December 30 3:25pm Power of Location Director No December 30, 2021 3:25pm Advance Directive Response Recorded Date/ Time Living Will Yes November 25, 023 9:07pm Power of Location Director Yes November 25, 2023 9:07pm Name of Medical Power of Location Director November 25, 2023 9:07pm Advance Directive Response Recorded Date/ Time Name of Medical Power of Location Director November 25, 2023 10:07pm Living Will Yes November 25, 023 10:07pm Power of Location Director Yes November 25, 2023 10:07pm Advance Directive Response Recorded Date/ Time Do you have a Healthcare Power of Location Director? Yes May 11, 2025 4:01pm Name of Medical Power of Location Director May 11, 2025 4:01pm Chief Complaint and [...] section and content) DATE CREATED AUTHOR 09/20/2018 [facility] DATE CREATED AUTHOR AUTHOR'S ORGANIZ ATION 10/12/2025 [facility] Goals (unrecognized section and content) Goals may [...] Active Team Status: Active Member Role Status Sylvester Herring MD Primary Care Provider, Referring Prov ider Active Dr. Fausto Tejeda MD Attending Provider Active Team Status: Inactive Member Role Status Dates Dr. Garrison Bishop DO Primary Care Provider Active Dr. Willie Kumar MD Attending Provider, Emergency Provider Active Team Status: Inactive Member Role Status Sylvester Herring MD Primary Care Provide r, Attending Provider, Referring Provider Active Team Status: Active Member Role Status Sylvester Herring MD Primary Care Provider Active Team Status: Inactive Member Role Status Sylvester Herring MD Primary Care Provider Active St art: April 10, 2025 End: April 10, 2025 Aadn Herring MD Referring Provider Active Start : [...] 2025 Team Status: Active Member Role Status Dates Adan Herring MD Primary Care Provider Active St [...] BE BASED ON THE PRIMARY CLINICAL RECORDS. [employer] provides no warranty or guarantee of the accuracy or completeness of information in this document.
[2025-10-24 07:32] LABS: Immature Granulocytes Count 0.030 X10^3/uL (0.0-0.0); POSITIVE COUNT YES
[2025-10-24 08:12] LABS: Anion Gap 20 (5-15); BUN 12 mg/dL (4-19); BUN/Creat Ratio 11.9 RATIO (10-20); Calcium,Total 9.3 mg/dL (7.6-11.0); Carbon Dioxide 17.0 mmol/L (21.0-32.0); Chloride 102 mmol/L (98-108); Glucose 119 mg/dL (70-99); Potassium 3.8 mmol/L (3.3-5.1)
[2025-10-24 08:43] LABS: Hematocrit 42.5 % (40-54); Hemoglobin 15.8 g/dL (13.0-16.5); Mean Corp Hgb Conc 37.2 g/dL (32-36); Mean Corpuscular Volume 86.6 fL (80-94); Mean Platelet Vol. 11.3 fl (6.2-12.0); NRBC Flagged by Analyzer 0 % (0-5); Platelet Count 200 K/mm3 (150-450); RBC Distribution Width CV 12.1 % (11.6-14.6); RBC Distribution Width SD 38.6 fl (35.1-43.9); Red Blood Count 4.91 M/mm3 (4.6-6.2); White Blood Count 8.5 K/mm3 (4.4-11.0)
== END | disposition home or self-care (01) ==
LOC: LAB 07:10
PROVIDERS: PCP Family Medicine; Referring Provider Student in an Organized Health Care Education/Training Program; Visit Provider Student in an Organized Health Care Education/Training Program
DX: Z01.818 Encounter for other preprocedural examination (principal)
CPT/HCPCS: 36415; 80048; 83036; 85025